=== PATIENT | male | born 1975 | race Caucasian/White ===

== ENCOUNTER 2017-10-18 02:08 | Outpatient (RCR) | payer MEDICAID, SELFPAY ==
[2017-10-18] MEDS: Normal Saline Flush 10 ML SYR IVP (07:50)
[2017-10-19] MEDS: Normal Saline Flush 10 ML SYR IVP (07:07)
[2017-10-20] MEDS: Normal Saline Flush 10 ML SYR IVP (07:17)
== END 2017-11-04 ==
LOC: INF 02:16
PROVIDERS: PCP Family Medicine; Visit Provider Psychiatry & Neurology Neurology
DX: G35 Multiple sclerosis (principal)
CPT/HCPCS: 96365; J2930

== ENCOUNTER 2017-11-24 01:45 | Outpatient (CLI) | payer MEDICAID, SELFPAY ==
[2017-11-24 10:59] LABS: Abs Immature Grans 0.12 k/cumm (0.0-0.09); Absolute Basophil Count 0.03 k/cumm (0.0-0.2); Absolute Eosinophil Count 0.28 k/cumm (0.0-0.7); Absolute Lymphocyte Count 1.85 k/cumm (1.2-3.4); Absolute Monocyte Count 0.73 k/cumm (0.11-0.7); Basophils % 0.5; Eosinophils % 4.2; HCT 45.9 % (40.0-50.0); HGB 15.2 g/dL (13.5-17.5); Immature Grans % 1.8; Mean Corp. HGB Concentration 33.1 g/dL (32.0-36.0); Mean Corpuscular Hemoglobin 29.5 pg (27.0-33.0); Mean Platelet Volume 9.8 fL (8.0-11.0); Neutrophils % 54.5; Platelet Count 345 x1000/uL (130-400); RBC 5.16 m/cumm (4.50-6.00); RBC Distribution Width 13.4 % (11.8-14.1); White Blood Cell Count 6.61 k/cumm (4.4-10.8)
[2017-11-24 11:37] LABS: ALT 58 U/L (12-78); AST 27 U/L (15-37); Albumin 3.6 g/dL (3.4-5.0); Alkaline Phosphatase 91 U/L (46-116); Anion Gap 8.7 mmol/L (3-11); BUN 16 mg/dL (7-18); Bilirubin, Total 0.3 mg/dL (0.2-1.0); CO2 26.3 mmol/L (21.0-32.0); CREATININE 0.87 mg/dL (0.70-1.30); Calcium 8.6 mg/dL (8.5-10.1); Chloride 108 mmol/L (98-107); Glucose 116 mg/dL (70-100); Potassium 4.4 mmol/L (3.5-5.1); Sodium 143 mmol/L (136-145); Total Protein 6.7 g/dL (6.4-8.2)
[2017-11-25 12:51] LABS: IgA 209 mg/dL (85-499); IgG 900 mg/dL (610-1616); IgM 87 mg/dL (35-242)
== END 2017-11-24 02:05 ==
PROVIDERS: PCP Family Medicine; Visit Provider Psychiatry & Neurology Neurology
DX: G35 Multiple sclerosis (principal)
CPT/HCPCS: 36415; 80053; 82784; 85025

== ENCOUNTER 2017-12-29 00:57 | Outpatient (RCR) | payer MEDICAID, SELFPAY ==
[2017-12-29] MEDS: Acetaminophen 325 MG TAB 650 MG PO (07:16)
[2017-12-29] MEDS: diphenhydrAMINE 50 MG/ML VIAL IVP (07:17)
[2017-12-29] MEDS: Normal Saline Flush 10 ML SYR IVP (07:18)
[2017-12-29] MEDS: Dexamethasone 10 MG/ML VIAL IVP (07:18)
[2017-12-29 07:40] VITALS: BP 118/72; PULSE 67; RESP 18; TEMP 36.2; O2SAT 94
[2017-12-29 08:15] VITALS: BP 128/69; PULSE 63; RESP 18; TEMP 36; O2SAT 95
[2017-12-29 08:40] VITALS: BP 129/74; PULSE 69; RESP 18; TEMP 36; O2SAT 97
[2017-12-29 09:10] VITALS: BP 127/55; PULSE 78; RESP 18; TEMP 36.5; O2SAT 97
[2017-12-29 09:28] VITALS: BP 115/66; PULSE 68; RESP 18; TEMP 36.4; O2SAT 98
[2017-12-29 10:10] VITALS: BP 130/74; PULSE 83; RESP 18; TEMP 36.5; O2SAT 98
== END 2018-01-04 23:59 | disposition home or self-care (01) ==
LOC: INF 00:57
PROVIDERS: PCP Family Medicine; Visit Provider Psychiatry & Neurology Neurology
DX: G35 Multiple sclerosis (principal)
CPT/HCPCS: 96365; 96366; J1100; J1200; J9310

== ENCOUNTER 2018-02-20 11:22 | Emergency (ER) | payer MEDICAID, SELFPAY ==
[2018-02-20 11:34] VITALS: BP 147/91; PULSE 68; RESP 16; TEMP 36.5; O2SAT 97
--- NOTE | 2018-02-20 12:24 | W.ED.GENAD ---
Discharge Plan Disposition Patient Disposition: HOME Condition: Good Discharge Details Chief Complaint: Laceration Clinical Impression: Puncture wound Primary Care Provider: Tai Lopez ED Provider: Patrick Tuttle Home Meds and New Rx's Prescriptions: New cephalexin [Keflex] 500 mg capsule 500 mg PO QID Qty: 28 RF: 0 No Action cholecalciferol (vitamin D3) 5,000 UNIT capsule 5,000 unit PO DAILY RF: 0 multivitamin [Daily Multiple] 1 EACH tablet 1 ea PO DAILY RF: 0 Rituxan 10 MG/1 ML concentrate 10 mg IV q 6 months RF: 0 sildenafil (antihypertensive) 20 MG tablet 20 mg PO DAILY Qty: 50 RF: 12 acetaminophen [Acetaminophen Extra Strength] 500 MG tablet 1,000 mg PO Q8H PRN PRNQty: 60 RF: 0 ibuprofen 600 MG tablet 600 mg PO Q8H PRN PRNQty: 30 RF: 1 Discharge Instructions Instructions: Puncture Wound (ED) Referrals: [facility] Emergency Dept. [Outside] - Return if symptoms worsen Discharge Data Discharge Date/Time-TO BE ENTERED AT DEPARTURE: 02/20/18 12:46 Medical Decision Making I used sterile water and betadine to flush under pressure. Pt tolerated well. I did close the wound with three nylon sutures. Advised to have out in 10 days. I prescribed Keflex for seven days for prophylaxis. Advised to keep clean and dry. Return for any complications. HPI General Mode of arrival: ambulatory. Date/Time Provider Initiated Documentation: 02/20/18 11:44. Limitations to Documentation: no limitations. Information obtained by: patient. History of Present Illness 42 year old M presents to the emergency department with the chief complaint of PW, HPI Narrative: 42 y/o right hand dominant male here with right hand PW. 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 Last Tetanus verified by departmental secretary to in 2016. Related Data Home Medications Medication Instructions Recorded Confirmed cholecalciferol (vitamin D3) 5,000 unit PO DAILY 05/25/16 02/20/18 multivitamin [Daily Multiple] 1 ea PO DAILY 05/11/17 02/20/18 acetaminophen [Acetaminophen Extra 1,000 mg PO Q8H PRN PRN #60 tablet 06/23/17 02/20/18 Strength] ibuprofen 600 mg PO Q8H PRN PRN #30 tablet 06/23/17 02/20/18 rituximab [Rituxan] 10 mg IV q 6 months vial 08/15/17 02/20/18 sildenafil (antihypertensive) 20 mg PO DAILY #50 tab-cap 10/17/17 02/20/18 cephalexin [Keflex] 500 mg PO QID #28 cap 02/20/18 Previous Rx's Medication Instructions Recorded acetaminophen [Acetaminophen Extra 1,000 mg PO Q8H PRN PRN #60 tablet 06/23/17 Strength] ibuprofen 600 mg PO Q8H PRN PRN #30 tablet 06/23/17 sildenafil (antihypertensive) 20 mg PO DAILY #50 tab-cap 10/17/17 cephalexin [Keflex] 500 mg PO QID #28 cap 02/20/18 Allergies Allergy/AdvReac Type Severity Reaction Status Date / Time No Known Allergies Allergy Unverified 02/20/18 11:47 General Stated Complaint: Laceration ZAK: 4 Review of Systems Integumentary/Breasts Comments: PW to right palm PFSH Social History Smoking/Tobacco Use Status: Former Tobacco Use Exam Const General: cooperative, healthy appearing, comfortable and no acute distress Orientation: alert, awake and oriented x3 Extrem General: full ROM and normal capillary refill Right upper extremity: hand Details: normal capillary refill, neuromotor exam normal, neurosensory exam normal, tendon exam normal, tenderness Location: of the palm (around PW site) Location: at the thenar eminence, no swelling and puncture wound (to the thinar eminence. Entry wound is approximatly 1 CM in length with adipose tissue exposed. No bleeding or erythema) Hand/finger images: 1. 1 CM PW/laceration Course Vital Signs Temperature 36.5 C 02/20/18 11:34 Pulse 68 02/20/18 11:34 Respiratory Rate 16 02/20/18 11:34 Blood Pressure 147/91 H 02/20/18 11:34 Pulse Oximetry 97 02/20/18 11:34 Temperature 36.5 C 02/20/18 11:34 Temperature Source Skin 02/20/18 11:34 Pulse 68 02/20/18 11:34 Respiratory Rate 16 02/20/18 11:34 Respiratory Effort 02/20/18 11:44 Blood Pressure 147/91 H 02/20/18 11:34 Blood Pressure Position Sitting 02/20/18 11:34 Pulse Oximetry 97 02/20/18 11:34 Oxygen Delivery Method Room Air 02/20/18 11:34 Oxygen Flow Rate 0 02/20/18 11:34 Pain Level 1 02/20/18 11:47 Procedures Laceration Laceration 1: Site: hand Side (If applicable): right Size (cm): 1 Description: linear and contaminated Depth: simple, single layer Local Anesthetic: Lidocaine 1% Amount of anesthesia used (mL): 0.5 Pre-repair: wound explored and irrigated extensively Skin layer closed with: nylon Size (cm): 4-0 Number of sutures: 3 Technique: simple, interrupted
--- NOTE | 2018-02-20 12:28 | ED.GENADUL_ITS ---
Discharge Plan Disposition Patient Disposition: HOME Condition: Good Discharge Details Chief Complaint: Laceration Clinical Impression: Puncture wound Primary Care Provider: Tai Lopez ED Provider: Patrick Tuttle Home Meds and New Rx's Prescriptions: New cephalexin [Keflex] 500 mg capsule 500 mg PO QID Qty: 28 RF: 0 No Action cholecalciferol (vitamin D3) 5,000 UNIT capsule 5,000 unit PO DAILY RF: 0 multivitamin [Daily Multiple] 1 EACH tablet 1 ea PO DAILY RF: 0 Rituxan 10 MG/1 ML concentrate 10 mg IV q 6 months RF: 0 sildenafil (antihypertensive) 20 MG tablet 20 mg PO DAILY Qty: 50 RF: 12 acetaminophen [Acetaminophen Extra Strength] 500 MG tablet 1,000 mg PO Q8H PRN PRNQty: 60 RF: 0 ibuprofen 600 MG tablet 600 mg PO Q8H PRN PRNQty: 30 RF: 1 Discharge Instructions Instructions: Puncture Wound (ED) Referrals: [facility] Emergency Dept. [Outside] - Return if symptoms worsen Discharge Data Discharge Date/Time-TO BE ENTERED AT DEPARTURE: 02/20/18 12:46 Medical Decision Making I used sterile water and betadine to flush under pressure. Pt tolerated well. I did close the wound with three nylon sutures. Advised to have out in 10 days. I prescribed Keflex for seven days for prophylaxis. Advised to keep clean and dry. Return for any complications. HPI General Mode of arrival: ambulatory . Date/Time Provider Initiated Documentation: 02/20/18 11:44 . Limitations to Documentation: no limitations . Information obtained by: patient . History of Present Illness 42 year old M presents to the emergency department with the chief complaint of PW, HPI Narrative: 42 y/o right hand dominant male here with right hand PW. 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 Last Tetanus verified by cupola patcher to in 2016. Related Data Home Medications Medication Instructions Recorded Confirmed cholecalciferol (vitamin D3) 5,000 unit PO DAILY 05/25/16 02/20/18 multivitamin [Daily Multiple] 1 ea PO DAILY 05/11/17 02/20/18 acetaminophen [Acetaminophen Extra 1,000 mg PO Q8H PRN PRN #60 tablet 06/23/17 02/20/18 Strength] ibuprofen 600 mg PO Q8H PRN PRN #30 tablet 06/23/17 02/20/18 rituximab [Rituxan] 10 mg IV q 6 months vial 08/15/17 02/20/18 sildenafil (antihypertensive) 20 mg PO DAILY #50 tab-cap 10/17/17 02/20/18 cephalexin [Keflex] 500 mg PO QID #28 cap 02/20/18 Previous Rx's Medication Instructions Recorded acetaminophen [Acetaminophen Extra 1,000 mg PO Q8H PRN PRN #60 tablet 06/23/17 Strength] ibuprofen 600 mg PO Q8H PRN PRN #30 tablet 06/23/17 sildenafil (antihypertensive) 20 mg PO DAILY #50 tab-cap 10/17/17 cephalexin [Keflex] 500 mg PO QID #28 cap 02/20/18 Allergies Allergy/AdvReac Type Severity Reaction Status Date / Time No Known Allergies Allergy Unverified 02/20/18 11:47 General Stated Complaint: Laceration ZAK: 4 Review of Systems Integumentary/Breasts Comments: PW to right palm PFSH Social History Smoking/Tobacco Use Status: Former Tobacco Use Exam Const General: cooperative, healthy appearing, comfortable and no acute distress Orientation: alert, awake and oriented x3 Extrem General: full ROM and normal capillary refill Right upper extremity: hand Details: normal capillary refill, neuromotor exam normal, neurosensory exam normal, tendon exam normal, tenderness Location: of the palm (around PW site) Location: at the thenar eminence, no swelling and puncture wound (to the thinar eminence. Entry wound is approximatly 1 CM in length with adipose tissue exposed. No bleeding or erythema) Hand/finger images: 1. 1 CM PW/laceration Course Vital Signs Temperature 36.5 C 02/20/18 11:34 Pulse 68 02/20/18 11:34 Respiratory Rate 16 02/20/18 11:34 Blood Pressure 147/91 H 02/20/18 11:34 Pulse Oximetry 97 02/20/18 11:34 Temperature 36.5 C 02/20/18 11:34 Temperature Source Skin 02/20/18 11:34 Pulse 68 02/20/18 11:34 Respiratory Rate 16 02/20/18 11:34 Respiratory Effort 02/20/18 11:44 Blood Pressure 147/91 H 02/20/18 11:34 Blood Pressure Position Sitting 02/20/18 11:34 Pulse Oximetry 97 02/20/18 11:34 Oxygen Delivery Method Room Air 02/20/18 11:34 Oxygen Flow Rate 0 02/20/18 11:34 Pain Level 1 02/20/18 11:47 Procedures Laceration Laceration 1: Site: hand Side (If applicable): right Size (cm): 1 Description: linear and contaminated Depth: simple, single layer Local Anesthetic: Lidocaine 1% Amount of anesthesia used (mL): 0.5 Pre-repair: wound explored and irrigated extensively Skin layer closed with: nylon Size (cm): 4-0 Number of sutures: 3 Technique: simple, interrupted
== END 2018-02-20 12:46 | disposition home or self-care (01) ==
LOC: ER 12:50
PROVIDERS: Emergency Provider Nurse Practitioner Family; PCP Family Medicine
DX: S61.431A Puncture wound without foreign body of right hand, initial encounter (principal); W26.8XXA Contact with other sharp object(s), not elsewhere classified, initial encounter
CPT/HCPCS: 12001

== ENCOUNTER 2018-04-17 01:25 | Outpatient (CLI) | payer MEDICAID, SELFPAY ==
--- NOTE | 2018-04-17 15:40 | DI.US_ITS ---
SYMPTOM/DIAGNOSIS: NEUROGENIC BLADDER, N31.9, ? HYDRONEPHROSIS RENAL ULTRASOUND: Routine examination was performed. The right kidney measures 13.8 cm. long. The left kidney measures 14 cm. long. No renal masses, calculi or obstruction is seen. There is symmetric blood flow to the kidneys. The prevoid urinary bladder volume is 170 cc's. The bladder wall appeared smooth. No intraluminal masses were seen. Both ureteral jets were visualized. The patient was unable to void. Prostatic volume was 13 cc's. IMPRESSION: The patient was unable to void during the examination. Otherwise negative renal ultrasound.
== END 2018-04-17 01:45 ==
PROVIDERS: PCP Family Medicine; Visit Provider Urology
DX: N31.9 Neuromuscular dysfunction of bladder, unspecified (principal)
CPT/HCPCS: 76770

== ENCOUNTER 2018-06-29 02:26 | Outpatient (RCR) | payer MEDICAID, SELFPAY ==
[2018-06-29] MEDS: diphenhydrAMINE 50 MG/ML VIAL IV (07:05)
[2018-06-29] MEDS: Acetaminophen 325 MG TAB 650 MG PO (07:07)
[2018-06-29] MEDS: Dexamethasone 10 MG/ML VIAL IV (07:07)
[2018-06-29 07:10] VITALS: BP 124/80; PULSE 76; RESP 18; TEMP 36.5; O2SAT 94
[2018-06-29 07:36] VITALS: BP 122/72; PULSE 74; RESP 18; TEMP 36.5; O2SAT 94
[2018-06-29 08:14] VITALS: BP 124/75; PULSE 67; RESP 18; TEMP 36.7; O2SAT 98
[2018-06-29 08:53] VITALS: BP 122/79; PULSE 74; RESP 16; TEMP 36.7; O2SAT 94
[2018-06-29 09:35] VITALS: BP 113/60; PULSE 71; RESP 18; TEMP 36.4; O2SAT 94
[2018-06-29 10:46] VITALS: BP 114/72; PULSE 77; RESP 17; TEMP 36.2; O2SAT 94
== END 2018-07-04 23:59 | disposition home or self-care (01) ==
LOC: INF 02:26
PROVIDERS: PCP Family Medicine; Visit Provider Psychiatry & Neurology Neurology
DX: G35 Multiple sclerosis (principal)
CPT/HCPCS: 96365; 96366; J1100; J1200; J9312

== ENCOUNTER 2018-07-14 12:14 | Emergency (ER) | payer MEDICAID, SELFPAY ==
[2018-07-14 12:25] VITALS: BP 148/88; PULSE 84; RESP 16; TEMP 36.7; O2SAT 97
--- NOTE | 2018-07-14 12:43 | DI.RAD_ITS ---
SYMPTOMS/DIAGNOSIS: FINGER VERSUS BAND SAW, CONCERN FOR TUFT FX LEFT HAND: Three views were obtained. The patient reportedly had an injury from a table saw. There is an apparent small chip fracture of the dorsum of the tuft of the distal phalanx of the middle finger. No additional fractures seen.
--- NOTE | 2018-07-14 12:53 | ED.GENADUL_ITS ---
Discharge Plan Disposition Patient Disposition: HOME Condition: Stable Discharge Details Chief Complaint: Laceration Clinical Impression: Nailbed laceration, finger Primary Care Provider: Tai Lopez ED Provider: Cruz Castro Home Meds and New Rx's Prescriptions: New cephalexin 500 mg tablet 500 mg PO QID Qty: 30 RF: 0 Continued cholecalciferol (vitamin D3) 5,000 UNIT capsule 5,000 unit PO DAILY RF: 0 multivitamin [Daily Multiple] 1 EACH tablet 1 ea PO DAILY RF: 0 Rituxan 10 MG/1 ML concentrate 10 mg IV q 6 months RF: 0 sildenafil (antihypertensive) 20 mg tablet 20 mg PO DAILY Qty: 50 RF: 12 imipramine HCl 10 mg tablet 20 mg PO DAILY Qty: 60 RF: 1 acetaminophen [Acetaminophen Extra Strength] 500 MG tablet 1,000 mg PO Q8H PRN PRNQty: 60 RF: 0 ibuprofen 600 MG tablet 600 mg PO Q8H PRN PRNQty: 30 RF: 1 Discharge Instructions Instructions: Finger Laceration (ED) Additional Instructions: Do not use heavy equipment while your finger is numb return to the emergency department immediately if you notice increasing pain redness at the site of your injury. Please take your antibiotic as prescribed Referrals: Tai Lopez [Primary Care Provider] - 3 days Medical Decision Making 42-year-old male laceration including the nailbed to his left ring finger x-ray negative for fracture irrigated copiously wound margins were revised and wound approximated with nine 4-0 nylon sutures nailbed partially stented open with 2 sutures will start patient on Keflex patient to follow-up in 7 to 10 days for wound check and suture removal return sooner for redness pain or other concern tetanus up-to-date. HPI 42-year-old male past medical history of multiple sclerosis on Rituxan presents status post distal left ring finger laceration on a band saw while cutting beef. No other injuries last tetanus shot was less than 5 years ago no change in sensation no other complaints. Pain is sharp nonradiating acute General Date/Time Provider Initiated Documentation: 07/14/18 12:15 . Related Data Home Medications Medication Instructions Recorded Confirmed cholecalciferol (vitamin D3) 5,000 unit PO DAILY 05/25/16 07/14/18 multivitamin [Daily Multiple] 1 ea PO DAILY 05/11/17 07/14/18 acetaminophen [Acetaminophen Extra 1,000 mg PO Q8H PRN PRN #60 tablet 06/23/17 07/14/18 Strength] ibuprofen 600 mg PO Q8H PRN PRN #30 tablet 06/23/17 07/14/18 Rituxan 10 mg IV q 6 months vial 08/15/17 07/14/18 sildenafil (antihypertensive) 20 20 mg PO DAILY #50 tab-cap 04/21/18 07/14/18 mg tablet imipramine 10 mg tablet 20 mg PO DAILY #60 tab 06/14/18 07/14/18 cephalexin 500 mg PO QID #30 tab 07/14/18 Previous Rx's Medication Instructions Recorded acetaminophen [Acetaminophen Extra 1,000 mg PO Q8H PRN PRN #60 tablet 06/23/17 Strength] ibuprofen 600 mg PO Q8H PRN PRN #30 tablet 06/23/17 sildenafil (antihypertensive) 20 20 mg PO DAILY #50 tab-cap 04/21/18 mg tablet imipramine 10 mg tablet 20 mg PO DAILY #60 tab 06/14/18 cephalexin 500 mg PO QID #30 tab 07/14/18 Allergies Allergy/AdvReac Type Severity Reaction Status Date / Time No Known Allergies Allergy Unverified 07/14/18 12:28 General Stated Complaint: Laceration ZAK: 4 Review of Systems Review of Systems No shortness of breath chest pain nausea vomiting diarrhea loss of consciousness weight loss weight gain or constitutional symptoms. All systems reviewed & are unremarkable except as noted in HPI and below PFSH Social History Smoking/Tobacco Use Status: Former Tobacco Use Alcohol Intake: never Drug use: Never Substance use type: does not use Household members: spouse and children Pets and animals: Yes Do you feel safe at home: Yes Do you feel safe in your relationship?: Yes Exam Narrative Exam Narrative: 42-year-old male Course Vital Signs Temperature 36.7 C 07/14/18 12:25 Pulse 84 07/14/18 12:25 Respiratory Rate 16 07/14/18 12:25 Blood Pressure 148/88 H 07/14/18 12:25 Pulse Oximetry 97 07/14/18 12:25 Temperature 36.7 C 07/14/18 12:25 Temperature Source Temporal Artery Scan 07/14/18 12:25 Pulse 84 07/14/18 12:25 Respiratory Rate 16 07/14/18 12:25 Respiratory Effort Non-Labored 05/10/19 12:29 Blood Pressure 148/88 H 07/14/18 12:25 Blood Pressure Position Sitting 07/14/18 12:25 Pulse Oximetry 97 07/14/18 12:25 Oxygen Delivery Method Room Air 07/14/18 12:25 Oxygen Flow Rate 0 07/14/18 12:25 Pain Level 1 07/14/18 12:25 Procedures Laceration Laceration 1: Site: hand (Left index finger distal tip involving the nail and the lateral nail plate nail partially removed nail plate stented with 2 through) Side (If applicable): left Size (cm): 2 Local Anesthetic: Lidocaine 2% (5 cc digital block) Pre-repair: wound explored, irrigated extensively and wound margins revised Skin layer closed with: nylon Size (cm): 4-0 Number of sutures: 9 Technique: simple, interrupted
[2018-07-14] MEDS: Cephalexin 500 MG CAP PO (14:33)
== END 2018-07-14 14:35 | disposition home or self-care (01) ==
PROVIDERS: Emergency Provider Emergency Medicine; PCP Family Medicine
DX: S61.315A Laceration without foreign body of left ring finger with damage to nail, initial encounter (principal); W31.2XXA Contact with powered woodworking and forming machines, initial encounter; G35 Multiple sclerosis
CPT/HCPCS: 11730; 12001; 73130

== ENCOUNTER 2018-07-26 02:11 | Outpatient (RCR) | payer MEDICAID, SELFPAY ==
[2018-07-24] MEDS: Normal Saline Flush 10 ML SYR IVP (07:23)
[2018-07-25] MEDS: Normal Saline Flush 10 ML SYR IVP (07:44)
[2018-07-26] MEDS: Normal Saline Flush 10 ML SYR IVP (07:24)
== END 2018-08-04 23:59 | disposition home or self-care (01) ==
LOC: INF 02:11
PROVIDERS: PCP Family Medicine; Visit Provider Psychiatry & Neurology Neurology
DX: G35 Multiple sclerosis (principal)
CPT/HCPCS: 96365; J2930

== ENCOUNTER 2018-08-08 02:02 | Outpatient (CLI) | payer MEDICAID, SELFPAY ==
[2018-08-11 04:54] LABS: JC Virus DNA, QN <500 copies/mL; Source PLASMA
== END 2018-08-08 02:22 ==
PROVIDERS: PCP Family Medicine; Visit Provider Psychiatry & Neurology Neurology
DX: G35 Multiple sclerosis (principal)
CPT/HCPCS: 36415; 87799

== ENCOUNTER 2018-09-27 08:30 | Outpatient (CLI) | payer MEDICAID, SELFPAY ==
[2018-09-29 07:41] LABS: CD19 <1 %; CD20 <1 %
== END 2018-09-27 08:50 ==
PROVIDERS: PCP Family Medicine; Visit Provider Psychiatry & Neurology Neurology
DX: G35 Multiple sclerosis (principal)
CPT/HCPCS: 36415; 88184; 88185

== ENCOUNTER 2018-10-26 02:18 | Outpatient (CLI) | payer MEDICAID, SELFPAY ==
[2018-10-30 11:16] LABS: CD19 <1 %; CD20 <1 %
== END 2018-10-26 02:38 ==
PROVIDERS: PCP Family Medicine; Visit Provider Psychiatry & Neurology Neurology
DX: G35 Multiple sclerosis (principal)
CPT/HCPCS: 36415; 88184; 88185

== ENCOUNTER 2018-11-30 02:10 | Outpatient (RCR) | payer MEDICAID, SELFPAY ==
[2018-11-30] MEDS: diphenhydrAMINE 50 MG/ML VIAL IV (07:15)
[2018-11-30] MEDS: Dexamethasone 10 MG/ML VIAL IV (07:15)
[2018-11-30] MEDS: Acetaminophen 325 MG TAB 650 MG PO (07:17)
[2018-11-30 07:20] VITALS: BP 118/76; PULSE 66; TEMP 36.4; O2SAT 96
[2018-11-30] MEDS: Normal Saline Flush 10 ML SYR IVP (07:26)
[2018-11-30 07:50] VITALS: BP 114/70; PULSE 71; TEMP 35.9
[2018-11-30 08:43] VITALS: BP 110/70; PULSE 65; RESP 18; TEMP 36.1; O2SAT 95
[2018-11-30 09:16] VITALS: BP 117/72; PULSE 68; RESP 16; TEMP 36.4; O2SAT 96
== END 2018-12-04 23:59 | disposition home or self-care (01) ==
LOC: INF 02:10
PROVIDERS: PCP Family Medicine; Visit Provider Psychiatry & Neurology Neurology
DX: G35 Multiple sclerosis (principal)
CPT/HCPCS: 96365; 96366; J1100; J1200; J9312

== ENCOUNTER 2019-04-24 02:19 | Outpatient (CLI) | payer MEDICAID, SELFPAY ==
[2019-04-24 07:36] LABS: Abs Immature Grans 0.05 k/cumm (0.0-0.09); Absolute Basophil Count 0.03 k/cumm (0.0-0.2); Absolute Eosinophil Count 0.36 k/cumm (0.0-0.7); Absolute Lymphocyte Count 1.54 k/cumm (1.2-3.4); Absolute Monocyte Count 0.79 k/cumm (0.11-0.7); Absolute Neutrophil Count 4.79 k/cumm (1.2-6.7); Basophils % 0.4; Eosinophils % 4.8; HCT 46.3 % (40.0-50.0); HGB 15.9 g/dL (13.5-17.5); Immature Grans % 0.7 %; Lymphocytes % 20.4; Mean Corp. HGB Concentration 34.3 g/dL (32.0-36.0); Mean Corpuscular Hemoglobin 30.2 pg (27.0-33.0); Mean Platelet Volume 9.4 fL (8.0-11.0); Monocytes % 10.4; Neutrophils % 63.3; Platelet Count 337 x1000/uL (130-400); RBC 5.26 m/cumm (4.50-6.00); White Blood Cell Count 7.56 k/cumm (4.4-10.8)
[2019-04-24 08:42] LABS: ALT 63 U/L (16-63); AST 31 U/L (15-37); Albumin 3.9 g/dL (3.4-5.0); Alkaline Phosphatase 67 U/L (46-116); Anion Gap 9.5 mmol/L (3-11); BUN 21 mg/dL (7-18); Bilirubin, Total 0.8 mg/dL (0.2-1.0); CO2 27.5 mmol/L (21.0-32.0); CREATININE 1.03 mg/dL (0.70-1.30); Calcium 8.7 mg/dL (8.5-10.1); Chloride 104 mmol/L (98-107); Glucose 100 mg/dL (74-106); Potassium 4.3 mmol/L (3.5-5.1); Sodium 141 mmol/L (136-145)
[2019-04-25 11:00] LABS: IgA 222 mg/dL (85-499); IgG 915 mg/dL (610-1,616); IgM 49 mg/dL (35-242)
[2019-04-25 16:39] LABS: CD19 <1 %; CD20 <1 %
[2019-04-26 05:02] LABS: Vitamin D 25 Total 45.7 ng/ml (30-100)
== END 2019-04-24 02:39 ==
PROVIDERS: PCP Family Medicine; Visit Provider Psychiatry & Neurology Neurology
DX: G35 Multiple sclerosis (principal)
CPT/HCPCS: 36415; 80053; 82306; 82784; 88184; 88185; 85025

== ENCOUNTER 2019-05-03 03:11 | Outpatient (RCR) | payer MEDICAID, SELFPAY ==
[2019-05-03] VITALS (8 sets, daily range): BP systolic 102–149; BP diastolic 63–82; PULSE 63–91; RESP 18–19; TEMP 35.9–36.7; O2SAT 94–98
[2019-05-03] MEDS: Dexamethasone 10 MG/ML VIAL IV (07:30)
[2019-05-03] MEDS: Acetaminophen 325 MG TAB 650 MG PO (07:30)
[2019-05-03] MEDS: diphenhydrAMINE 50 MG/ML VIAL IV (07:35)
[2019-05-03] MEDS: Normal Saline Flush 10 ML SYR IVP (07:42)
== END 2019-05-05 23:59 | disposition home or self-care (01) ==
LOC: INF 03:11
PROVIDERS: PCP Family Medicine; Visit Provider Psychiatry & Neurology Neurology
DX: G35 Multiple sclerosis (principal)
CPT/HCPCS: 96365; 96366; 96374; J1100; J1200; J9312

== ENCOUNTER 2019-05-18 04:35 | Outpatient (RCR) | payer MEDICAID, SELFPAY ==
[2019-05-16] MEDS: Normal Saline Flush 10 ML SYR IVP ×2 (13:59→14:32)
[2019-05-17] MEDS: Normal Saline Flush 10 ML SYR IVP (07:48)
[2019-05-18] MEDS: Normal Saline Flush 10 ML SYR IVP (07:20)
== END 2019-06-05 23:59 | disposition home or self-care (01) ==
LOC: INF 04:35
PROVIDERS: PCP Family Medicine; Visit Provider Psychiatry & Neurology Neurology
DX: G35 Multiple sclerosis (principal)
CPT/HCPCS: 96365; J2930

== ENCOUNTER 2019-09-26 03:02 | Outpatient (RCR) | payer MEDICAID, SELFPAY ==
[2019-09-26] VITALS (8 sets, daily range): BP systolic 102–113; BP diastolic 64–70; PULSE 55–77; RESP 18–19; TEMP 36–36.5; O2SAT 97–100
[2019-09-26] MEDS: diphenhydrAMINE 50 MG/ML VIAL IV (08:14)
[2019-09-26] MEDS: Acetaminophen 325 MG TAB 650 MG PO (08:14)
[2019-09-26] MEDS: Dexamethasone 10 MG/ML VIAL IV (08:20)
[2019-09-26] MEDS: Normal Saline Flush 10 ML SYR IVP (08:44)
[2019-09-27 13:11] LABS: IgA 192 mg/dL (85-499); IgG 676 mg/dL (610-1,616); IgM 42 mg/dL (35-242)
[2019-09-27 15:58] LABS: CD19 <1 %; CD20 <1 %
== END 2019-10-05 23:59 | disposition home or self-care (01) ==
LOC: INF 03:02
PROVIDERS: PCP Family Medicine; Visit Provider Psychiatry & Neurology Neurology
DX: G35 Multiple sclerosis (principal)
CPT/HCPCS: 36415; 82784; 88184; 88185; 96365; 96366; 96374; 96375; J1100; J1200; J9312

== ENCOUNTER 2019-12-03 10:25 | Emergency (ER) | payer MEDICAID, SELFPAY ==
[2019-12-03 10:34] VITALS: BP 150/72; PULSE 73; RESP 16; TEMP 36.4; O2SAT 96
--- NOTE | 2019-12-03 10:56 | W.ED.GENAD ---
Discharge Plan Disposition Patient Disposition: HOME Condition: Improving Discharge Details Clinical Impression: Laceration of thumb Primary Care Provider: Tai Lopez ED Provider: Juan José Leyva Home Meds and New Rx's Prescriptions: Continued pseudoephedrine HCl [Sudogest] 60 mg tablet 60 mg PO Q6H PRN (Reason: nasal congestion) Qty: 60 RF: 2 cholecalciferol (vitamin D3) 5,000 UNIT capsule 5,000 unit PO DAILY RF: 0 multivitamin [Daily Multiple] 1 EACH tablet 1 ea PO DAILY RF: 0 Rituxan 10 MG/1 ML concentrate 10 mg IV q 6 months RF: 0 acetaminophen [Acetaminophen Extra Strength] 500 MG tablet 1,000 mg PO Q8H PRN PRNQty: 60 RF: 0 ibuprofen 600 MG tablet 600 mg PO Q8H PRN PRNQty: 30 RF: 1 No Action tadalafil [Cialis] 5 mg tablet 5 mg PO DAILY PRN (Reason: lower urinary tract symptoms) Qty: 30 RF: 12 Discharge Instructions Instructions: Laceration (ED) Additional Instructions: Remove for suture removal in 7 to 10 days time. Return sooner if develop a fever, foul-smelling discharge from wound, or any other concerns. Leave current dressing in place for 48 hours, then may remove, wash gently with soap and water and pat dry, then replace bandage. Resume normal routine and activities. 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 He cut his left thumb on the volar aspect with a sharp saw. Dressing was applied at the scene. Patient's tetanus is up-to-date. He does not have motor or vascular compromise and sensation is normal. Wound was anesthetized, irrigated, examined in a bloodless field without evidence of foreign body, repaired with interrupted sutures with good wound edge alignment. I personally dressed the wound and discussed home care precautions with the patient. He is stable and improved and will return for suture removal. HPI General Mode of arrival: ambulatory. Date/Time Provider Initiated Documentation: 12/03/19 10:29. Limitations to Documentation: no limitations. Information obtained by: patient. History of Present Illness 44 year old M presents to the emergency department with the chief complaint of Left thumb laceration, described as moderate, Quality is described as dull and constant, and is localized to the left and upper extremity. Patient reports no radiation. Patient started experiencing this minute(s) and it has been constant. No relieving factors improve symptom(s), No exacerbating factors reported . Patient did receive the following treatments prior to arrival, none and other (Tetanus up-to-date 2015) Related Data Home Medications Medication Instructions Recorded Confirmed cholecalciferol (vitamin D3) 5,000 unit PO DAILY 05/25/16 10/09/19 multivitamin [Daily Multiple] 1 ea PO DAILY 05/11/17 10/09/19 acetaminophen [Acetaminophen Extra 1,000 mg PO Q8H PRN PRN #60 tab 06/23/17 10/09/19 Strength] ibuprofen 600 mg PO Q8H PRN PRN #30 tab 06/23/17 10/09/19 Rituxan 10 mg IV q 6 months vial 08/15/17 10/09/19 pseudoephedrine HCl 60 mg tablet 60 mg PO Q6H PRN #60 tab 04/02/19 10/09/19 tadalafil 5 mg tablet 5 mg PO DAILY PRN #30 tab 10/09/19 10/09/19 Previous Rx's Medication Instructions Recorded acetaminophen [Acetaminophen Extra 1,000 mg PO Q8H PRN PRN #60 tab 06/23/17 Strength] ibuprofen 600 mg PO Q8H PRN PRN #30 tab 06/23/17 pseudoephedrine HCl 60 mg tablet 60 mg PO Q6H PRN #60 tab 04/02/19 tadalafil 5 mg tablet 5 mg PO DAILY PRN #30 tab 10/09/19 Allergies Allergy/AdvReac Type Severity Reaction Status Date / Time No Known Allergies Allergy Verified 12/03/19 10:45 General Stated Complaint: Laceration ZAK: 4 Review of Systems Narrative: No numbness or motor weakness. 4 systems reviewed and otherwise negative [facility] Medical History Erectile dysfunction secondary to MS Lower urinary tract symptoms (LUTS) Multiple sclerosis, relapsing-remitting (05/25/16) Neurogenic bladder secondary to MS Surgical History H/O total cystectomy lower buttocks S/P carpal tunnel release Right endoscopic 06/2017 S/P vasectomy x2 Family History Paternal Grandfather Stroke Paternal Cousin Multiple sclerosis Social History Smoking/Tobacco Use Status: Former Tobacco Use Alcohol Intake: never Drug use: Never Substance use type: does not use Household members: spouse and children Housing: house Number of Children: 5 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 Pleasant, well groomed, interactive. HEAD: Normocephalic, atraumatic EXT: Full ROM, there is a curvilinear laceration on the volar aspect of the patient's left thumb. Measures approximately 3 cm. Motor function and apposition of the thumb are normal as is distal sensation. Neuro: Grossly normal neurologic exam, conversant, interactive. Psych: Speech fluent, thoughts congruent, affect normal Course Vital Signs Vital signs: Vital Signs Temperature 36.4 C L 12/03/19 10:34 Pulse 73 12/03/19 10:34 Respiratory Rate 16 12/03/19 10:34 Blood Pressure 150/72 H 12/03/19 10:34 Pulse Oximetry 96 12/03/19 10:34 Temperature 36.4 C L 12/03/19 10:34 Temperature Source Skin 12/03/19 10:34 Pulse 73 12/03/19 10:34 Respiratory Rate 16 12/03/19 10:34 Respiratory Effort Non-Labored 12/03/19 10:34 Blood Pressure 150/72 H 12/03/19 10:34 Blood Pressure Position Sitting 12/03/19 10:34 Pulse Oximetry 96 12/03/19 10:34 Oxygen Delivery Method Room Air 12/03/19 10:34 Oxygen Flow Rate 0 12/03/19 10:34 Pain Level 2 12/03/19 10:41 Procedures Laceration Laceration 1: Site: hand Side (If applicable): left Depth: simple, single layer Local Anesthetic: Lidocaine 1% Amount of anesthesia used (mL): 1.5 Pre-repair: wound explored and irrigated extensively Skin layer closed with: nylon Size (cm): 4-0 Number of sutures: 6 Technique: simple, interrupted
== END 2019-12-03 11:14 | disposition home or self-care (01) ==
PROVIDERS: Emergency Provider Emergency Medicine; PCP Family Medicine
DX: S61.012A Laceration without foreign body of left thumb without damage to nail, initial encounter (principal); W27.0XXA Contact with workbench tool, initial encounter; Y99.0 Civilian activity done for income or pay; G35 Multiple sclerosis
CPT/HCPCS: 12001

== ENCOUNTER 2020-02-27 08:00 | Outpatient (RCR) | payer MEDICAID, SELFPAY ==
[2020-02-27 08:24] LABS: Abs Immature Grans 0.04 10^3/uL (0.0-0.06); Absolute Basophil Count 0.05 10^3/uL (0.0-0.2); Absolute Eosinophil Count 0.34 10^3/uL (0.0-0.7); Absolute Lymphocyte Count 1.64 10^3/uL (1.2-3.4); Absolute Monocyte Count 0.64 10^3/uL (0.1-0.8); Absolute Neutrophil Count 3.86 10^3/uL (1.2-6.7); Basophils % 0.8; Eosinophils % 5.2; HCT 44.9 % (40.0-50.0); HGB 15.3 g/dL (13.5-17.5); Immature Grans % 0.6; MCH 29.5 pg (27.0-33.0); MCHC 34.1 % (32.0-36.0); MCV 86.7 fL (80-95); MPV 9.4 fL (8.0-11.0); Monocytes % 9.7; Neutrophils % 58.7; Nucleated RBC 0 %; Platelet Count 322 10^3/uL (130-400); RBC 5.18 10^6/uL (4.36-5.78); RDW 12.4 % (11.8-14.1); RDW-SD 39.4 fL; WBC 6.57 10^3/uL (4.4-10.8)
[2020-02-27] MEDS: Dexamethasone 10 MG/ML VIAL IVP (08:25)
[2020-02-27] MEDS: diphenhydrAMINE 50 MG/ML VIAL IVP (08:25)
[2020-02-27] MEDS: Normal Saline Flush 10 ML SYR IVP (08:25)
[2020-02-27 08:35] VITALS: BP 117/74; PULSE 62; RESP 18; TEMP 36.6; O2SAT 98
[2020-02-27 08:45] LABS: ALT 53 U/L (16-63); AST 29 U/L (15-37); Albumin 3.9 g/dL (3.4-5.0); Alkaline Phosphatase 62 U/L (46-116); BUN 21 mg/dL (7-18); Bilirubin, Total 0.7 mg/dL (0.2-1.0); CREATININE 0.75 mg/dL (0.70-1.30); Calcium 8.6 mg/dL (8.5-10.1); Chloride 102 mmol/L (98-107); Glucose 106 mg/dL (74-106); Potassium 4.2 mmol/L (3.5-5.1); Sodium 137 mmol/L (136-145)
[2020-02-27 09:00] VITALS: BP 115/73; PULSE 56; RESP 16; TEMP 37.1; O2SAT 98
[2020-02-27 09:30] VITALS: BP 114/70; PULSE 60; RESP 18; TEMP 36.1; O2SAT 97
[2020-02-27 10:00] VITALS: BP 115/71; PULSE 56; RESP 16; TEMP 36.9; O2SAT 98
[2020-02-27 11:45] VITALS: BP 129/76; PULSE 79; RESP 20; TEMP 36.3; O2SAT 97
[2020-02-28 10:02] LABS: IgA 184 mg/dL (85-499); IgG 692 mg/dL (610-1,616); IgM 45 mg/dL (35-242)
== END 2020-03-06 23:59 | disposition home or self-care (01) ==
LOC: INF 08:00
PROVIDERS: PCP Family Medicine; Visit Provider Psychiatry & Neurology Neurology
DX: G35 Multiple sclerosis (principal)
CPT/HCPCS: 36415; 80053; 82784; 96365; 96366; 96375; 85025; J1100; J1200; J9312

== ENCOUNTER 2020-07-07 01:53 | Outpatient (CLI) | payer MEDICAID, SELFPAY ==
[2020-07-07 10:12] LABS: Source Nasal/Nares
[2020-07-07 12:50] LABS: COVID-19 PCR Negative (Negative)
== END 2020-07-07 01:54 | disposition home or self-care (01) ==
LOC: LBO 01:54
PROVIDERS: PCP Family Medicine; Visit Provider Student in an Organized Health Care Education/Training Program
DX: Z20.822 Contact with and (suspected) exposure to COVID-19 (principal)
CPT/HCPCS: 87635

== ENCOUNTER 2020-07-08 06:12 | Day surgery (SDC) | payer MEDICAID, SELFPAY ==
[2020-07-08 06:15] VITALS: BP 124/74; PULSE 78; RESP 18; TEMP 36.6; O2SAT 97
[2020-07-08] MEDS: Lactated Ringers 1,000 ML 80 ML IV (06:44)
--- NOTE | 2020-07-08 06:54 | W.ANESPRE ---
General Info Date of Service Date Performed: 07/08/20 Height: 5 ft 11 in Weight: 137.6 kg Body Mass Index (BMI): 42.3 Surgical Procedure: Operation Date: 07/08/20 07:40 Proposed Procedures Side Surgeon p Wrist ECTR Left Moses Leon MD Operation Date: 07/08/20 13:25 Proposed Procedures Side Surgeon p Wrist ECTR Left Moses Leon MD Meds Allergies and Home Medications Allergies Allergy/AdvReac Type Severity Reaction Status Date / Time shrimp Allergy hands swell Verified 07/08/20 06:24 Home Medication Medication Instructions Recorded cholecalciferol (vitamin D3) 10,000 unit PO DAILY 05/25/16 multivitamin [Daily Multiple] 1 ea PO DAILY 05/11/17 acetaminophen [Acetaminophen Extra 1,000 mg PO Q8H PRN PRN #60 tab 06/23/17 Strength] ibuprofen 600 mg PO Q8H PRN PRN #30 tab 06/23/17 Rituxan 10 mg IV q 6 months vial 08/15/17 pseudoephedrine HCl 60 mg tablet 60 mg PO Q6H PRN #60 tab 04/02/19 dalfampridine 10 mg 10 mg PO Q12H 04/07/20 tablet,extended release,12 hr Current Visit Medications: Current Medications Generic Name Dose Route Start Last Admin Trade Name Freq PRN Reason Stop Dose Admin Ringer's Solution 1,000 mls @ 80 mls/hr 07/08/20 06:00 07/08/20 06:44 IV 08/06/20 23:59 80 mls/hr INFUSION MARY Administration Cefazolin Sodium 3,000 mg/ 100 mls @ 200 mls/hr 07/08/20 06:00 Sodium Chloride IVPB 07/08/20 23:59 PREOP MARY IV Miscellaneous Supplies 1 each 07/08/20 06:00 Iv Access IV 08/06/20 23:59 DIRECTED MARY Sodium Chloride 0 ml 07/08/20 06:00 Normal Saline Flush 10 Ml Syr IV 08/06/20 23:59 PRN PRN Sodium Chloride 0 ml 07/08/20 06:00 Normal Saline 10 Ml Vial IJ 08/06/20 23:59 DIRECTED PRN Sterile Water 0 ml 07/08/20 06:00 Water,Injection,Sterile 10 Ml Vial IJ 08/06/20 23:59 DIRECTED PRN PFSH Active Problems Active Problems: Problem Status Onset Code Lower urinary tract symptoms (LUTS) R39.9 Erectile dysfunction N52.9 Neurogenic bladder N31.9 Multiple sclerosis, relapsing-remitting 05/25/16 G35 Carpal tunnel syndrome of left wrist G56.02 Tick bite W57.XXXA Carpal tunnel syndrome of right wrist 05/12/17 G56.01 Right optic neuritis 05/25/16 H46.9 Medical History Medical History Erectile dysfunction secondary to MS Lower urinary tract symptoms (LUTS) Multiple sclerosis, relapsing-remitting (05/25/16) Neurogenic bladder secondary to MS Surgical History Surgical History H/O total cystectomy lower buttocks S/P carpal tunnel release Right endoscopic 06/2017 S/P vasectomy x2 Tobacco Smoking/Tobacco Use Status: Former Tobacco Use Alcohol Alcohol Intake: never Substance Use Substance use: Never Substance use type: does not use Vital Signs and Lab Results Vital Signs Most Recent Vital Signs in EMR: Most Recent Vital Signs Temp Pulse Resp BP Pulse Ox 36.6 C 78 18 124/74 97 07/08/20 06:15 07/08/20 06:15 07/08/20 06:15 07/08/20 06:15 07/08/20 06:15 Lab Results Blood Type / Crossmatch: No Data to Display Complete Blood Count: White Blood Count 6.57 10^3/uL (4.4-10.8) 02/27/20 08:09 02/27/20 Red Blood Count 5.18 10^6/uL (4.36-5.78) 02/27/20 08:09 02/27/20 Hemoglobin 15.3 g/dL (13.5-17.5) 02/27/20 08:09 02/27/20 Hematocrit 44.9 % (40.0-50.0) 02/27/20 08:09 02/27/20 Platelet Count 322 10^3/uL (130-400) 02/27/20 08:09 02/27/20 Complete Metabolic Panel: Sodium Level 137 mmol/L (136-145) 02/27/20 08:09 02/27/20 Potassium Level 4.2 mmol/L (3.5-5.1) 02/27/20 08:09 02/27/20 Chloride Level 102 mmol/L (98-107) 02/27/20 08:09 02/27/20 Carbon Dioxide Level 26.0 mmol/L (21.0-32.0) 02/27/20 08:09 02/27/20 Blood Urea Nitrogen 21 mg/dL (7-18) H 02/27/20 08:09 02/27/20 Creatinine 0.75 mg/dL (0.70-1.30) 02/27/20 08:09 02/27/20 Calcium Level 8.6 mg/dL (8.5-10.1) 02/27/20 08:09 02/27/20 Albumin 3.9 g/dL (3.4-5.0) 02/27/20 08:09 02/27/20 Glucose Level 106 mg/dL (74-106) 02/27/20 08:09 02/27/20 Liver Function Panel: Alanine Aminotransferase (ALT/SGPT) 53 U/L (16-63) 02/27/20 08:09 02/27/20 Aspartate Amino Transf (AST/SGOT) 29 U/L (15-37) 02/27/20 08:09 02/27/20 Coagulation Panel: No Data to Display Cardiac Panel: No Data to Display Arterial Blood Gas: No Data to Display Venous Blood Gas: No Data to Display Pancreas Panel: No Data to Display Thyroid Panel: No Data to Display Infectious Disease: Coronavirus (COVID-19)(PCR) Negative (Negative) 07/07/20 08:58 07/07/20 Coronavirus 2019 Source Nasal/nares 07/07/20 08:58 07/07/20 Group A Streptococcus Rapid Negative 09/12/17 08:39 09/12/17 Hepatitis B Surface Antigen Negative (NEGAT) 06/01/17 08:49 06/01/17 Hepatitis C Antibody Negative (NEGAT) 06/01/17 08:49 06/01/17 Blood Cultures: No Data to Display Toxicology Panel: No Data to Display Anesthesia Assessment and Plan Anesthesia History Personal History: No History of Anesthesia Complications Family History: No Family History of Anesthesia Complications Exercise Tolerance Exercise Tolerance: Metabolic Equivalents>4 Pertinent Negatives Pertinent Negatives: No Symptoms of GERD, No Major Cardiovascular Symptoms or Complaints, No Major Pulmonary Symptoms or Complaints and No History of CVA/TIA Cardiac & Pulmonary Exam Cardiac Exam: Normal S1/S2 Heart Sounds Pulmonary Exam: Clear Bilateral Breath Sounds Airway Exam Known Difficult Airway: No Mallampati Class: 3 Mouth Opening: Normal (> 3cm) Thyromental Distance: Greater than 3 cm Neck Range of Motion: Full ROM Neck Circumference: Normal Teeth Condition: Normal Dentition ASA Classification ASA Score: ASA 3 ASA Emergency: No NPO Status NPO Status: NPO Clears >2 hours, Solids >8 hours Anesthesia Plan Anesthesia Technique: General Anesthesia Airway Planned: Natural Airway Monitors Used: Standard Monitors
[2020-07-08 07:06] VITALS: BMI 42.3
[2020-07-08] MEDS: ceFAZolin 3,000 MG in Normal Saline 100 ML 200 MG IVPB (07:23)
--- NOTE | 2020-07-08 07:25 | W.PM.DSUDISC ---
Discharge Plan Disposition Patient Disposition: HOME Condition: Good Discharge Details Reason For Visit: Left Carpal Tunnel Syndrome Attending Provider: Moses Leon Primary Care Provider: Tai Lopez Home Meds and New Rx's Prescriptions: Continued pseudoephedrine HCl [Sudogest] 60 mg tablet 60 mg PO Q6H PRN (Reason: nasal congestion) Qty: 60 RF: 2 dalfampridine 10 mg tablet extended release 12 hr 10 mg PO Q12H RF: 0 cholecalciferol (vitamin D3) 5,000 UNIT capsule 10,000 unit PO DAILY RF: 0 multivitamin [Daily Multiple] 1 EACH tablet 1 ea PO DAILY RF: 0 Rituxan 10 MG/1 ML concentrate 10 mg IV q 6 months RF: 0 acetaminophen [Acetaminophen Extra Strength] 500 MG tablet 1,000 mg PO Q8H PRN PRNQty: 60 RF: 0 ibuprofen 600 MG tablet 600 mg PO Q8H PRN PRNQty: 30 RF: 1 Discharge Instructions Stand Alone Forms: Edward Martinez Tunnel Release Referrals: Moses Leon MD [ [facility] STAFF PHYSICIAN] - Activity:: Elevate Remove Dressings/Wound Care:: 48 hours Shower/Bathe:: 48 hours Diet:: As Tolerated Discharge Orders Discharge Orders: Discharge Order (Routine); Ordered 07/08/20 Ordered By: Moses Leon DS: Diagnosis Discharge Diagnosis (1) Carpal tunnel syndrome of left wrist: Status: Acute
[2020-07-08] MEDS: Sodium Bicarbonate 50 MEQ/50 ML VIAL (07:30)
[2020-07-08 07:45] VITALS: BP 106/55; PULSE 73; RESP 18; TEMP 36.5; O2SAT 94
--- NOTE | 2020-07-08 07:48 | W.ANESPOSTOP ---
Postoperative Evaluation Date, Time and Location Date Performed: 07/08/20 Time Performed: 07:49 Patient Location: Day Surgery Unit Vital Signs Most Recent Imported Vital Signs: Most Recent Vital Signs Temp Pulse Resp BP Pulse Ox 36.6 C 78 18 124/74 97 07/08/20 06:15 07/08/20 06:15 07/08/20 06:15 07/08/20 06:15 07/08/20 06:15 Most Recent Manually Entered Vital Signs: Adult Blood Pressure: 106/55 Heart Rate: 73 Respirations: 16 Oxygen Saturation (%): 94 Temperature (C): 36.5 C Pain Score (0-10 Scale): 0 Assessment Mental Status: Awake (Alert & Oriented to Patient Baseline) Airway and Respiratory Function: Patent airway with normal (patient baseline) respiratory exam Cardiovascular Function: Hemodynamically Stable Hydration Status: Adequately Hydrated Nausea & Vomiting: No Nausea or Vomiting Pain: Pt. Denies Any Pain Peripheral Nerve Block: Patient did not receive a nerve block
[2020-07-08 07:53] VITALS: BP 106/55; PULSE 73; RESP 16; TEMPC 36.5; O2SAT 94
[2020-07-08 08:10] VITALS: BP 134/63; PULSE 70; RESP 18; TEMP 36.2; O2SAT 98
--- NOTE | 2020-07-08 10:24 | W.PM.OP ---
Date of service: 07/08/20 Time of Service: 07:47 Operative Note Operative Note DATE OF PROCEDURE: 07/08/20 PRE-OP DIAGNOSIS: Left Carpal Tunnel Syndrome POST-OP DIAGNOSIS: same PROCEDURE: Left Endoscopic Carpal Tunnel Release SURGEON: Moses Leon ANESTHESIA TYPE: General:No Airway Refer to Anesthesia Record ESTIMATED BLOOD LOSS: 0 PATHOLOGY: none sent TOURNIQUET TIME: 4 COMPLICATIONS: None Patient was transported to: same day Patient's condition: stable Indications: I have seen Wilmer in clinic for symptoms of carpal tunnel syndrome. The numbness, tingling, and pain limited function. Clinical exam findings with nerve conduction tests confirmed the diagnosis of carpal tunnel syndrome. Nonoperative measures such as bracing, time, activity modifications had been tried but disability and pain persisted. I discussed carpal tunnel release with the patient. I reviewed the risks of the procedure to include, but not limited to, bleeding, infection, pain, stiffness, incomplete release, damage to nerves or vessels, persistent numbness, recurrence. Despite these risks, the patient elected to proceed. Findings: There was tightened carpal tunnel. This was dilated and released successfully with the endoscopic with increased space within the tunnel. The antebrachial fascia was released proximally freeing the median nerve at the wrist. Procedure Description: Wilmer was greeted in the preoperative holding area where the correct side was identified and marked. The consent was reviewed with the patient and signed. The history and physical was updated. All questions were answered. He was taken back to the operating room. The patient was placed into the supine position on the operating room table with the left arm on an arm board. A nonsterile tourniquet was placed high onto the arm. All bony prominences were well padded. Prophylactic antibiotics in the form of Cefazolin were administered. The left arm was then prepped with Chloraprep and draped in a standard fashion with stockinette and extremity drape. A timeout to confirm correct identity, side and site, procedure, allergies, anesthesia, and medical concerns was performed. The surgical site was marked in the volar wrist creases in line with the radial border of the fourth ray. This area was anesthetized with approximately 6cc of 1% Lidocaine. The limb was then exsanguinated with an Esmarch. The skin was incised with a 15 blade, approximately 1cm. The skin only was cut and the deeper tissue was dissected bluntly with a tenotomy scissor, avoiding passing nerve and venous structures. The fascia was penetrated and opened bluntly. A two-prong skin hook was placed under this proximal fascial edge. A series of hamate finders were used to identify and dilate the carpal tunnel. Synovial elevator was used to free synovial attachments to the underside of the transverse carpal ligament. My thumb was kept in the palm to dana the distal extent of the carpal tunnel and correctly position the hand. The [employer] endoscope was inserted without difficulty and without resistance. Excellent visualization showed horizontally running fibers of the transverse carpal ligament (TCL). The distal extent of the TCL was visualized and the end of the scope palpated with the thumb. The blade was elevated and withdrawn from distal to proximal. The TCL was split into two flaps. The endoscope was reinserted to confirm complete release and any remnant ligament was incised. The scope was withdrawn and the proximal aspect of the carpal tunnel was grossly inspected and appeared release with the median nerve visible. The antebrachial fascia at the level of the wrist was then freed from the overlying skin and then the underlying median nerve with blunt dissection. This was transected longitudinally for about 3cm proximal to the wrist incision. The wound was then irrigated with easy flow of irrigant distally and proximally. The incision was closed with a single 4-0 Nylon suture. The wound was dressed with Xeroform, Gauze, Kerlix and Rajinder. The tourniquet was deflated with the initial dressing and held with some pressure. Blood flow returned easily to all digits with capillary refill less than 2 seconds. The patient tolerated the procedure well and was returned to the Same Day Surgery area in a stable condition suffering no known complication.
== END 2020-07-08 08:35 | disposition home or self-care (01) ==
PROVIDERS: PCP Family Medicine; Visit Provider Student in an Organized Health Care Education/Training Program
PROC: 01N54ZZ Release Median Nerve, Percutaneous Endoscopic Approach (ICD-10-PCS; CPT 29848; principal; 2020-07-08 07:30)
DX: G56.02 Carpal tunnel syndrome, left upper limb (principal); G35 Multiple sclerosis
CPT/HCPCS: 29848; J0690; J2001; J2704

== ENCOUNTER 2020-07-28 07:45 | Outpatient (RCR) | payer MEDICAID, SELFPAY ==
[2020-07-28] VITALS (7 sets, daily range): BP systolic 110–120; BP diastolic 69–74; PULSE 60–68; RESP 16–18; TEMP 36.1–37; O2SAT 96–98
[2020-07-28] MEDS: Dexamethasone 10 MG/ML VIAL IVP (07:38)
[2020-07-28] MEDS: Normal Saline Flush 10 ML SYR IVP (07:39)
[2020-07-28] MEDS: diphenhydrAMINE 50 MG/ML VIAL IVP (07:39)
[2020-07-28] MEDS: Acetaminophen 325 MG TAB 650 MG PO (07:39)
[2020-07-28] MEDS: riTUXimab-PVVR 500 MG in Normal Saline 200 ML 62.5 MG IVPB (08:01)
[2020-07-28 08:07] LABS: Abs Immature Grans 0.06 10^3/uL (0.0-0.06); Absolute Basophil Count 0.05 10^3/uL (0.0-0.2); Absolute Eosinophil Count 0.29 10^3/uL (0.0-0.7); Absolute Lymphocyte Count 2.09 10^3/uL (1.2-3.4); Absolute Monocyte Count 0.75 10^3/uL (0.1-0.8); Absolute Neutrophil Count 4.37 10^3/uL (1.2-6.7); Basophils % 0.7; Eosinophils % 3.8; HGB 15.2 g/dL (13.5-17.5); Immature Grans % 0.8; Lymphocytes % 27.5; MCH 29.8 pg (27.0-33.0); MCHC 33.8 % (32.0-36.0); MCV 88.2 fL (80-95); MPV 9.6 fL (8.0-11.0); Monocytes % 9.9; Neutrophils % 57.3; Nucleated RBC 0 %; Platelet Count 347 10^3/uL (130-400); RDW 12.2 % (11.8-14.1); RDW-SD 40.2 fL; WBC 7.61 10^3/uL (4.4-10.8)
[2020-07-28 08:24] LABS: ALT 63 U/L (16-63); AST 46 U/L (15-37); Albumin 3.7 g/dL (3.4-5.0); Alkaline Phosphatase 67 U/L (46-116); Anion Gap 6.9 mmol/L (3-11); BUN 17 mg/dL (7-18); Bilirubin, Total 0.7 mg/dL (0.2-1.0); CO2 28.1 mmol/L (21.0-32.0); CREATININE 0.9 mg/dL (0.70-1.30); Calcium 8.6 mg/dL (8.5-10.1); Chloride 107 mmol/L (98-107); Glucose 105 mg/dL (74-106); Potassium 4.5 mmol/L (3.5-5.1); Sodium 142 mmol/L (136-145); Total Protein 7.1 g/dL (6.4-8.2)
[2020-07-29 10:04] LABS: IgA 178 mg/dL (85-499); IgG 702 mg/dL (610-1,616); IgM 48 mg/dL (35-242)
[2020-07-30 10:46] LABS: CD19 <1 %; CD20 <1 %
== END 2020-08-04 23:59 | disposition home or self-care (01) ==
LOC: INF 07:45
PROVIDERS: PCP Family Medicine; Visit Provider Psychiatry & Neurology Neurology
DX: G35 Multiple sclerosis (principal)
CPT/HCPCS: 36415; 80053; 82784; 88184; 88185; 96365; 96366; 96374; 96375; 96413; 96415; 85025; J1100; J1200; Q5119

== ENCOUNTER 2020-12-30 08:00 | Outpatient (RCR) | payer MEDICAID, SELFPAY ==
[2020-12-30] MEDS: Normal Saline Flush 10 ML SYR IVP (08:18)
[2020-12-30] MEDS: Dexamethasone 10 MG/ML VIAL IVP (08:30)
[2020-12-30] MEDS: diphenhydrAMINE 50 MG/ML VIAL IVP (08:30)
[2020-12-30] MEDS: Acetaminophen 325 MG TAB 650 MG PO (08:30)
[2020-12-30 08:35] VITALS: BP 120/81; PULSE 75; RESP 17; TEMP 36.7; O2SAT 97
[2020-12-30] MEDS: riTUXimab-PVVR 500 MG in Normal Saline 200 ML 62.5 MG IVPB (08:37)
[2020-12-30 09:12] LABS: Abs Immature Grans 0.06 10^3/uL (0.0-0.06); Absolute Basophil Count 0.04 10^3/uL (0.0-0.2); Absolute Eosinophil Count 0.34 10^3/uL (0.0-0.7); Absolute Monocyte Count 0.72 10^3/uL (0.1-0.8); Absolute Neutrophil Count 3.72 10^3/uL (1.2-6.7); Basophils % 0.6; HCT 44.8 % (40.0-50.0); HGB 14.9 g/dL (13.5-17.5); Immature Grans % 0.9; MCH 29.6 pg (27.0-33.0); MCHC 33.3 % (32.0-36.0); MCV 88.9 fL (80-95); MPV 10.3 fL (8.0-11.0); Monocytes % 10.6; Neutrophils % 54.9; Nucleated RBC 0 %; Platelet Count 346 10^3/uL (130-400); RBC 5.04 10^6/uL (4.36-5.78); RDW 12.7 % (11.8-14.1); RDW-SD 41.8 fL; WBC 6.78 10^3/uL (4.4-10.8)
[2020-12-30 09:15] VITALS: BP 119/66; PULSE 64; RESP 17; TEMP 36.7; O2SAT 99
[2020-12-30 09:30] LABS: ALT 63 U/L (16-63); AST 27 U/L (15-37); Albumin 3.8 g/dL (3.4-5.0); Alkaline Phosphatase 67 U/L (46-116); Anion Gap 8.4 mmol/L (3-11); BUN 14 mg/dL (7-18); Bilirubin, Total 0.5 mg/dL (0.2-1.0); CO2 29.6 mmol/L (21.0-32.0); CREATININE 0.9 mg/dL (0.70-1.30); Calcium 8.7 mg/dL (8.5-10.1); Chloride 106 mmol/L (98-107); Glucose 105 mg/dL (74-106); Potassium 4.4 mmol/L (3.5-5.1); Sodium 144 mmol/L (136-145); Total Protein 6.3 g/dL (6.4-8.2)
[2020-12-30 09:45] VITALS: BP 123/74; PULSE 63; RESP 17; TEMP 36.7; O2SAT 97
[2020-12-30 10:15] VITALS: BP 123/84; PULSE 68; RESP 16; TEMP 35.9; O2SAT 95
[2020-12-30 10:45] VITALS: BP 129/80; PULSE 65; RESP 17; TEMP 36.7; O2SAT 97
[2020-12-31 10:13] LABS: IgA 163 mg/dL (85-499); IgG 584 mg/dL (610-1,616); IgM 50 mg/dL (35-242)
== END 2021-01-04 23:59 | disposition home or self-care (01) ==
LOC: INF 08:00
PROVIDERS: PCP Family Medicine; Visit Provider Psychiatry & Neurology Neurology
DX: G35 Multiple sclerosis (principal)
CPT/HCPCS: 36415; 80053; 82784; 96365; 96366; 96374; 96375; 96413; 96415; 85025; J1100; J1200; Q5119

== ENCOUNTER 2021-04-14 01:46 | Outpatient (RCR) | payer MEDICAID, SELFPAY ==
[2021-04-14] MEDS: Normal Saline Flush 10 ML SYR IVP (07:46)
== END 2021-05-04 23:59 | disposition home or self-care (01) ==
LOC: INF 01:46
PROVIDERS: PCP Family Medicine; Visit Provider Psychiatry & Neurology Neurology
DX: G35 Multiple sclerosis (principal)
CPT/HCPCS: 96365; J2930

== ENCOUNTER 2021-05-28 03:40 | Outpatient (CLI) | payer MEDICAID, SELFPAY ==
[2021-05-29 15:18] LABS: CD19 <1 % (6-24); CD20 <1 % (6-24)
== END 2021-05-28 03:41 | disposition home or self-care (01) ==
LOC: LBO 03:40
PROVIDERS: PCP Family Medicine; Visit Provider Psychiatry & Neurology Neurology
DX: G35 Multiple sclerosis (principal)
CPT/HCPCS: 36415; 88184; 88185

== ENCOUNTER 2021-06-24 03:10 | Outpatient (CLI) | payer MEDICAID, SELFPAY ==
[2021-06-25 12:27] LABS: CD19 <1 % (6-24); CD20 <1 % (6-24)
== END 2021-06-24 03:11 | disposition home or self-care (01) ==
LOC: LBO 03:10
PROVIDERS: PCP Family Medicine; Visit Provider Psychiatry & Neurology Neurology
DX: G35 Multiple sclerosis (principal)
CPT/HCPCS: 36415; 88184; 88185

== ENCOUNTER 2021-07-28 03:13 | Outpatient (CLI) | payer MEDICAID, SELFPAY ==
[2021-07-29 10:16] LABS: HBs Antibody, Qual Negative (See Note); Hepatitis B Core Antibody Negative (Negative); Hepatitis B surface Ag Negative (Negative); Hepatitis C Ab w Rflx HCV PCR Negative (Negative)
[2021-07-29 10:56] LABS: CD19 <1 % (6-24); CD20 <1 % (6-24)
== END 2021-07-28 03:14 | disposition home or self-care (01) ==
LOC: LOS 03:13
PROVIDERS: PCP Family Medicine; Visit Provider Psychiatry & Neurology Neurology
DX: G35 Multiple sclerosis (principal)
CPT/HCPCS: 36415; 86704; 86706; 86803; 87340; 88184; 88185

== ENCOUNTER 2021-08-26 02:14 | Outpatient (CLI) | payer MEDICAID, SELFPAY ==
[2021-08-27 09:44] LABS: IgA 158 mg/dL (85-499); IgG 592 mg/dL (610-1,616); IgM 33 mg/dL (35-242)
[2021-08-27 14:40] LABS: CD19 <1 % (6-24); CD20 <1 % (6-24)
== END 2021-08-26 02:15 | disposition home or self-care (01) ==
LOC: LBO 02:14
PROVIDERS: PCP Family Medicine; Visit Provider Psychiatry & Neurology Neurology
DX: G35 Multiple sclerosis (principal)
CPT/HCPCS: 36415; 82784; 88184; 88185

== ENCOUNTER 2021-09-28 04:12 | Outpatient (CLI) | payer MEDICAID, SELFPAY ==
[2021-09-29 13:11] LABS: CD19 <1 % (6-24); CD20 <1 % (6-24)
== END 2021-09-28 04:13 | disposition home or self-care (01) ==
LOC: LBO 04:12
PROVIDERS: PCP Family Medicine; Visit Provider Psychiatry & Neurology Neurology
DX: G35 Multiple sclerosis (principal); Z79.899 Other long term (current) drug therapy
CPT/HCPCS: 36415; 82306; 88184; 88185

== ENCOUNTER 2021-10-29 03:05 | Outpatient (CLI) | payer MEDICAID, SELFPAY ==
[2021-10-29 07:27] LABS: Abs Immature Grans 0.06 10^3/uL (0.0-0.06); Absolute Basophil Count 0.05 10^3/uL (0.0-0.2); Absolute Eosinophil Count 0.32 10^3/uL (0.0-0.7); Absolute Lymphocyte Count 1.68 10^3/uL (1.2-3.4); Absolute Monocyte Count 0.93 10^3/uL (0.1-0.8); Absolute Neutrophil Count 4.36 10^3/uL (1.2-6.7); Basophils % 0.7; Eosinophils % 4.3; HCT 45.9 % (40.0-50.0); HGB 15.7 g/dL (13.5-17.5); Immature Grans % 0.8; Lymphocytes % 22.7; MCH 29.9 pg (27.0-33.0); MCHC 34.2 % (32.0-36.0); MCV 87 fL (80-95); MPV 9.1 fL (8.0-11.0); Monocytes % 12.6; Neutrophils % 58.9; Platelet Count 326 10^3/uL (130-400); RBC 5.25 10^6/uL (4.36-5.78); RDW 12.6 % (11.8-14.1); RDW-SD 40.7 fL
[2021-10-29 07:57] LABS: ALT 66 U/L (16-63); AST 27 U/L (15-37); Albumin 3.7 g/dL (3.4-5.0); Alkaline Phosphatase 77 U/L (46-116); Anion Gap 9.1 mmol/L (3-11); BUN 18 mg/dL (7-18); Bilirubin, Total 0.5 mg/dL (0.2-1.0); CO2 26.9 mmol/L (21.0-32.0); CREATININE 0.9 mg/dL (0.70-1.30); Calcium 8.5 mg/dL (8.5-10.1); Chloride 103 mmol/L (98-107); Glucose 108 mg/dL (74-106); Potassium 4.1 mmol/L (3.5-5.1); Sodium 139 mmol/L (136-145)
[2021-10-30 09:05] LABS: IgA 145 mg/dL (85-499); IgG 544 mg/dL (610-1,616); IgM 33 mg/dL (35-242)
[2021-10-30 12:53] LABS: CD19 <1 % (6-24); CD20 <1 % (6-24)
== END 2021-10-29 03:06 | disposition home or self-care (01) ==
LOC: LBO 03:05
PROVIDERS: PCP Family Medicine; Visit Provider Psychiatry & Neurology Neurology
DX: G35 Multiple sclerosis (principal)
CPT/HCPCS: 36415; 80053; 82784; 88184; 88185; 85025

== ENCOUNTER 2021-11-19 09:01 | Emergency (ER) | payer MEDICAID, SELFPAY ==
[2021-11-19 09:07] VITALS: BP 144/85; PULSE 75; RESP 20; TEMP 36.2; O2SAT 97
--- NOTE | 2021-11-19 10:09 | ED.GENADUL_ITS ---
Discharge Plan Disposition Patient Disposition: HOME Condition: Stable Discharge Details Clinical Impression: Laceration of finger, index Primary Care Provider: Tai Lopez ED Provider: China Andrea Home Meds and New Rx's Prescriptions: Continued dalfampridine 10 mg tablet extended release 12 hr 10 mg PO Q12H sildenafil [Viagra] 100 mg tablet 100 mg PO DAILY PRN (Reason: sexual activity) Qty: 10 12RF Rx Instructions: administer 30 minutes to 4 hours before activity cholecalciferol (vitamin D3) 5,000 UNIT capsule 10,000 unit PO DAILY multivitamin [Daily Multiple] 1 EACH tablet 1 ea PO DAILY Rituxan 10 MG/1 ML concentrate 10 mg IV q 6 months acetaminophen [Acetaminophen Extra Strength] 500 MG tablet 1,000 mg PO Q8H PRN PRNQty: 60 0RF ibuprofen 600 MG tablet 600 mg PO Q8H PRN PRNQty: 30 1RF Discharge Instructions Instructions: Finger Laceration (ED) Additional Instructions: suture removal in 10 days refrain from bending keep dry return with spreading redness, fever, worsening pain Referrals: Tai Lopez MD [Primary Care Provider] - Discharge Data Discharge Date/Time-TO BE ENTERED AT DEPARTURE: 11/19/21 10:25 Medical Decision Making tolerated suture placement well suture removal in 10 days return precautions discussed and pt expressed understanding Medical Records Medical records reviewed: Yes I reviewed the patient's medical records. Lab Data Lab results reviewed: Yes I reviewed the patient's lab results. HPI General Date/Time Provider Initiated Documentation: 11/19/21 10:09 . HPI Narrative: This 46-year-old gentleman who is otherwise healthy presents with laceration to his left finger about 45 minutes prior to arrival. Tetanus is up-to-date reportedly. Denies any strength or sensation change. Denies any difficulties with range of motion. Related Data Home Medications Medication Instructions Recorded Confirmed cholecalciferol (vitamin D3) 125 10,000 unit PO DAILY 05/25/16 11/19/21 mcg (5,000 unit) capsule multivitamin (Daily Multiple 1 ea PO DAILY 05/11/17 11/19/21 tablet) acetaminophen 500 mg tablet 1,000 mg PO Q8H PRN PRN #60 tabs 06/23/17 11/19/21 (Acetaminophen Extra Strength) ibuprofen 600 mg tablet 600 mg PO Q8H PRN PRN #30 tabs 06/23/17 11/19/21 rituximab 10 mg/mL 10 mg IV q 6 months 08/15/17 11/19/21 concentrate,intravenous (Rituxan) dalfampridine 10 mg 10 mg PO Q12H 04/07/20 11/19/21 tablet,extended release,12 hr sildenafil 100 mg tablet (Viagra) 100 mg PO DAILY PRN sexual 10/09/21 11/19/21 activity #10 tabs Previous Rx's Medication Instructions Recorded acetaminophen 500 mg tablet 1,000 mg PO Q8H PRN PRN #60 tabs 06/23/17 (Acetaminophen Extra Strength) ibuprofen 600 mg tablet 600 mg PO Q8H PRN PRN #30 tabs 06/23/17 sildenafil 100 mg tablet (Viagra) 100 mg PO DAILY PRN sexual 10/09/21 activity #10 tabs Allergies Allergy/AdvReac Type Severity Reaction Status Date / Time shrimp Allergy hands swell Verified 11/19/21 09:10 General Stated Complaint: Laceration ZAK: 3 Review of Systems All systems reviewed & are unremarkable except as noted in HPI and below PFSH All Active Problems (Updated 11/19/21 @ 10:11 by LISSETTE Milton) Laceration of finger, index (Acute) Lower urinary tract symptoms (LUTS) (Acute) Erectile dysfunction (Chronic) secondary to MS Neurogenic bladder (Chronic) secondary to MS Multiple sclerosis, relapsing-remitting (Acute 05/25/16) Carpal tunnel syndrome of left wrist (Acute) s/p L ECTR DOS: 07/08/2020 Tick bite (Acute) Carpal tunnel syndrome of right wrist (Acute 05/12/17) Right optic neuritis (Acute 05/25/16) Surgical History H/O total cystectomy lower buttocks S/P carpal tunnel release Right endoscopic 06/2017 S/P vasectomy x2 Family History Paternal Grandfather Stroke Paternal Cousin Multiple sclerosis Social History Smoking/Tobacco Use Status: Former Tobacco Use Quit Date: 03/07/13 Smoking risk assessment performed?: Yes Alcohol Intake: never Drug use: Never Substance use type: does not use Household members: spouse and children Housing: house Number of Children: 5 current occupation: [employer], [employer] Pets and animals: Yes What is your relationship status?: Panel score (0-1 are the most socially isolated patients): 1 Do you feel safe at home: Yes Do you feel safe in your relationship?: Yes Additional Social history: unable to assess privatley Exam Const General: cooperative, comfortable and no acute distress Nutritional Appearance: average body habitus Orientation: alert and oriented x3 Extrem Hand/finger images: 1. n/v intact ROM intact Course Vital Signs Vital signs: Vital Signs Temperature 36.2 C L 11/19/21 09:07 Pulse 75 11/19/21 09:07 Respiratory Rate 20 11/19/21 09:07 Blood Pressure 144/85 H 11/19/21 09:07 Pulse Oximetry 97 11/19/21 09:07 Temperature 36.2 C L 11/19/21 09:07 Temperature Source Temporal Artery Scan 11/19/21 09:07 Pulse 75 11/19/21 09:07 Respiratory Rate 20 11/19/21 09:07 Respiratory Effort Non-Labored 11/19/21 09:09 Blood Pressure 144/85 H 11/19/21 09:07 Blood Pressure Position Sitting 11/19/21 09:07 Pulse Oximetry 97 11/19/21 09:07 Oxygen Delivery Method Room Air 11/19/21 09:07 Oxygen Flow Rate 0 11/19/21 09:07 Pain Level 1 11/19/21 09:07 Procedures Laceration Laceration 1: Site: hand Side (If applicable): left Size (cm): 1.5 Description: linear Depth: simple, single layer Amount of anesthesia used (mL): 2 Pre-repair: wound explored Skin layer closed with: nylon Size (cm): 5-0 Number of sutures: 1 Technique: horizontal mattress Number of sutures: 1 Technique: simple, interrupted
== END 2021-11-19 10:25 | disposition home or self-care (01) ==
PROVIDERS: Emergency Provider Physician Assistant; PCP Family Medicine
DX: S61.211A Laceration without foreign body of left index finger without damage to nail, initial encounter (principal); Z87.891 Personal history of nicotine dependence; X58.XXXA Exposure to other specified factors, initial encounter
CPT/HCPCS: 12001; 99281; 99282

== ENCOUNTER 2021-12-31 03:38 | Outpatient (RCR) | payer MEDICAID, SELFPAY ==
[2021-12-31] VITALS (7 sets, daily range): BP systolic 110–123; BP diastolic 67–79; PULSE 64–79; RESP 18–20; TEMP 35.3–36.5; O2SAT 95–100
[2021-12-31] MEDS: Acetaminophen 325 MG TAB 650 MG PO (07:22)
[2021-12-31] MEDS: diphenhydrAMINE 50 MG/ML VIAL IVP (07:28)
[2021-12-31] MEDS: Dexamethasone 10 MG/ML VIAL IVP (07:30)
[2021-12-31] MEDS: Normal Saline Flush 10 ML SYR IVP (07:35)
[2021-12-31] MEDS: riTUXimab-PVVR 500 MG in Normal Saline 200 ML 62.5 MG IVPB (07:46)
[2021-12-31 08:04] LABS: Abs Immature Grans 0.07 10^3/uL (0.0-0.06); Absolute Basophil Count 0.04 10^3/uL (0.0-0.2); Absolute Eosinophil Count 0.27 10^3/uL (0.0-0.7); Absolute Lymphocyte Count 1.94 10^3/uL (1.2-3.4); Absolute Monocyte Count 0.69 10^3/uL (0.1-0.8); Absolute Neutrophil Count 5.32 10^3/uL (1.2-6.7); Basophils % 0.5; Eosinophils % 3.2; HCT 46.2 % (40.0-50.0); HGB 15.9 g/dL (13.5-17.5); Immature Grans % 0.8; Lymphocytes % 23.3; MCHC 34.4 % (32.0-36.0); MCV 87 fL (80-95); MPV 9.3 fL (8.0-11.0); Monocytes % 8.3; Neutrophils % 63.9; Platelet Count 375 10^3/uL (130-400); RDW 12.3 % (11.8-14.1); RDW-SD 39.5 fL; WBC 8.33 10^3/uL (4.4-10.8)
[2021-12-31 08:31] LABS: ALT 58 U/L (16-63); AST 26 U/L (15-37); Albumin 3.8 g/dL (3.4-5.0); Alkaline Phosphatase 72 U/L (46-116); Anion Gap 7.4 mmol/L (3-11); BUN 17 mg/dL (7-18); Bilirubin, Total 0.5 mg/dL (0.2-1.0); CO2 27.6 mmol/L (21.0-32.0); CREATININE 0.9 mg/dL (0.70-1.30); Chloride 102 mmol/L (98-107); Estimated GFR 107.33 (mL/min/1.73m2); Glucose 124 mg/dL (74-106); Sodium 137 mmol/L (136-145)
[2022-01-01 10:07] LABS: IgA 153 mg/dL (85-499); IgG 533 mg/dL (610-1,616); IgM 37 mg/dL (35-242)
[2022-01-01 12:11] LABS: CD19 <1 % (6-24); CD20 <1 % (6-24)
== END 2022-01-04 23:59 | disposition home or self-care (01) ==
LOC: INF 03:38
PROVIDERS: PCP Family Medicine; Visit Provider Psychiatry & Neurology Neurology
DX: G35 Multiple sclerosis (principal)
CPT/HCPCS: 36415; 80053; 82784; 88184; 88185; 96365; 96366; 96374; 96413; 96415; 85025; J1100; J1200; Q5119

== ENCOUNTER 2022-01-15 22:35 | Outpatient (REF) | payer MEDICAID, SELFPAY | END 2022-01-15 22:36 | disposition home or self-care (01) | LOC: LBN 22:35 | PROVIDERS: PCP Family Medicine; Visit Provider Nurse Practitioner Family | DX: L03.115 Cellulitis of right lower limb (principal) | CPT/HCPCS: 87077; 87070; 87186; 87205 ==

== ENCOUNTER 2022-02-08 10:54 | Emergency (ER) | payer MEDICAID, SELFPAY ==
[2022-02-08 11:05] VITALS: BP 122/72; PULSE 76; RESP 18; TEMP 37; O2SAT 98
--- NOTE | 2022-02-08 11:15 | DI.RAD_ITS ---
Exam(s) XR SHOULDER RT COMPLETE 2+V EXAM: XR SHOULDER RT COMPLETE 2+V CLINICAL HISTORY: fall on shoulder yesterday, lateral pain. TECHNIQUE: 2D digital imaging was performed. Five views. COMPARISON: No exams were available for comparison FINDINGS: BONES: No acute fracture is present. No bony destructive lesion is seen. JOINTS: No dislocation present. Mild spurring inferior glenoid. Glenohumeral joint space is maintai jazmine. Mild spurring is seen at the AC joint. The AC joint is not widened. SOFT TISSUE: Normal. IMPRESSION: Unremarkable radiographs of the right shoulder. DATA REPOSITORY: RADIATION DOSE DELIVERED:
--- NOTE | 2022-02-08 11:30 | ED.GENADUL_ITS ---
Discharge Plan Disposition Patient Disposition: Home Condition: Good Discharge Details Clinical Impression: Acute pain of right shoulder, Impingement syndrome of right shoulder Primary Care Provider: Tai Lopez ED Provider: Shana Treviño Home Meds and New Rx's Prescriptions: Continued dalfampridine 10 mg tablet extended release 12 hr 10 mg PO Q12H sildenafil [Viagra] 100 mg tablet 100 mg PO DAILY PRN (Reason: sexual activity) Qty: 10 12RF Rx Instructions: administer 30 minutes to 4 hours before activity cholecalciferol (vitamin D3) 5,000 UNIT capsule 10,000 unit PO DAILY multivitamin [Daily Multiple] 1 EACH tablet 1 ea PO DAILY Rituxan 10 MG/1 ML concentrate 10 mg IV q 6 months acetaminophen [Acetaminophen Extra Strength] 500 MG tablet 1,000 mg PO Q8H PRN PRNQty: 60 0RF ibuprofen 600 MG tablet 600 mg PO Q8H PRN PRNQty: 30 1RF No Action cephalexin 500 mg capsule 500 mg PO QID Qty: 28 0RF Discharge Instructions Instructions: Shoulder Pain (ED) Additional Instructions: Your x-ray is reassuring here today. I am concerned that you may have damaged your rotator cuff. As we discussed, this may be inflammation such as impingement syndrome. You were given a steroid and local anesthetic injection today. Please take it easy this afternoon. Please encourage gentle range of motion as we discussed to maintain your full range of motion. Can use Tylenol and/or ibuprofen as needed for discomfort. I have referred you to orthopedics, please call their office, number listed below, to schedule follow-up appointmen t. If you develop fever/chills, redness, warmth, increased pain or other new/worsening symptom please seek care urgently once again. Referrals: Moses Leon MD [ [facility] STAFF PHYSICIAN] - Discharge Data Discharge Date/Time-TO BE ENTERED AT DEPARTURE: 02/08/22 13:03 Medical Decision Making Patient is a pleasant 46-year-old [id number] male with past medical history significant for MS, presenting today with chief complaint of right shoulder pain. He reports that he has foot drag on the right side and tripped while walking on a sidewalk yesterday. States that he fell landing on both of his elbows and his right shoulder jammed upward. Since then he has been having lateral sided pain that radiates towards the right elbow. Also endorsing some tingling in the ulnar digits of the right hand which seems to be improving. He denies striking his head, no loss of conscious. Denies any pain in his neck or back. No chest pain, shortness of breath or other evidence of trauma during the fall. He states that his tetanus is up-to-date. 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 Hemodynamically stable. He has a small area of abrasion right elbow. He is 2+ distal pulses. Full range of motion in the e lbow, wrist, hand. 5 and 5 liability claims manager strength. Neurovascularly intact although he does have some subjective tingling in the ring and small digit, sensation is intact at the time of testing. His forward elevation is to approximately 110 degrees. External rotation is lacking approximately 20 degrees compared to contralateral side. Internal rotation is to the buttock. No pain over the anterior aspect of the shoulder, no Taqueria deformity. Pain is maximal laterally with point tenderness over the subacromial space. No AC joint deformity or pain with palpation over this area. No pain with palpation elsewhere about the humerus. No pain posteriorly. Patient does have weakness with Neer and Rios as well as significant discomfort. Primarily concern for rotator cuff injury. He does have some weakness but given his recent injury, this could be associated with pain and impingement syndrome. Will obtain x-ray to evaluate for potential bony abnormality although I do find this less likely. If x-ray is without evidence to suggest fracture, will move forward with steroid injection. Patient I discussed with/benefits as well as expected procedural steps. He has not been and any steroids recently for his MS. FINDINGS: BONES: No acute fracture is present. No bony destructive lesion is seen. JOINTS: No dislocation present.? Mild spurring inferior glenoid.? Glenohumeral joint space is maintained.? Mild spurring is seen at the AC joint.? The AC joint is not widened. SOFT TISSUE: Normal. IMPRESSION: Unremarkable radiographs of the right shoulder. Patient denies discussed these findings. Again we discussed her/benefits as well as expected procedural steps and alternatives of subacromial joint injection. Patient voiced understanding and wishes to proceed. Consent was obtained. Please see procedure note. Patient tolerated this well. Procedure was performed using standard sterile technique. Patient had immediate improvement in his discomfort. We discussed encouraging passive range of motion and exercises demonstrated to the patient to help prevent any type of frozen shoulder. He has seen Dr. Leon for other orthopedic issues in the past and we will follow-up with him once again. We discussed activities that he should avoid. Return precautions were discussed. All his questions and concerns were addressed and he is in agreement with this plan. Sign Out No HPI General Date/Time Provider Initiated Documentation: 02/08/22 11:08 . Limitations to Documentation: no limitations . Information obtained by: patient and RN notes reviewed . History of Present Illness 46 year old M presents to the emergency department with the chief complaint of right shoulder pain, described as severe, Quality is described as aching, and is localized to the right and upper extremity. Patient extremity (toward right elbow). Patient started experiencing this day(s) (1) and it has been constant. Immobilization improves symptom(s), Movement worsens symptoms . Patient notes no other symptoms.. Patient did receive the following treatments prior to arrival, none Related Data Home Medications Medication Instructions Recorded Confirmed cholecalciferol (vitamin D3) 125 10,000 unit PO DAILY 05/25/16 02/15/22 mcg (5,000 unit) capsule multivitamin (Daily Multiple 1 ea PO DAILY 05/11/17 02/15/22 tablet) acetaminophen 500 mg tablet 1,000 mg PO Q8H PRN PRN #60 tabs 06/23/17 02/15/22 (Acetaminophen Extra Strength) ibuprofen 600 mg tablet 600 mg PO Q8H PRN PRN #30 tabs 06/23/17 02/15/22 rituximab 10 mg/mL 10 mg IV q 6 months 08/15/17 02/15/22 concentrate,intravenous (Rituxan) dalfampridine 10 mg 10 mg PO Q12H 04/07/20 02/15/22 tablet,extended release,12 hr sildenafil 100 mg tablet (Viagra) 100 mg PO DAILY PRN sexual 10/09/21 02/15/22 activity #10 tabs cephalexin 500 mg capsule 500 mg PO QID #28 caps 02/15/22 02/15/22 Previous Rx's Medication Instructions Recorded acetaminophen 500 mg tablet 1,000 mg PO Q8H PRN PRN #60 tabs 06/23/17 (Acetaminophen Extra Strength) ibuprofen 600 mg tablet 600 mg PO Q8H PRN PRN #30 tabs 06/23/17 sildenafil 100 mg tablet (Viagra) 100 mg PO DAILY PRN sexual 10/09/21 activity #10 tabs cephalexin 500 mg capsule 500 mg PO QID #28 caps 02/15/22 Allergies Allergy/AdvReac Type Severity Reaction Status Date / Time shrimp Allergy hands swell Verified 02/15/22 11:10 General Stated Complaint: Orthopedic ZAK: 4 Review of Systems Constitutional Constitutional: Reports as per HPI, Denies chills, Denies fever(s), Denies headache(s) and Denies weakness ENT Ears, Nose, Mouth, and Throat: Denies headache(s) Cardiovascular Cardiovascular: Reports as per HPI Respiratory Respiratory: Reports as per HPI and Denies cough Musculoskeletal Musculoskeletal: Reports as per HPI and Denies tingling Integumentary/Breasts Skin/Breast: Reports as per HPI, Denies rash and Denies wounds Neurologic Neurologic: Reports as per HPI, Denies headache(s), Denies tingling, Denies paresthesias and Denies weakness PFSH All Active Problems (Updated 02/15/22 @ 11:21 by Broderick Howard NP) Skin infection (Acute) Acute pain of right shoulder (Acute) Impingement syndrome of right shoulder (Acute) Lower urinary tract symptoms (LUTS) (Acute) Erectile dysfunction (Chronic) secondary to MS Neurogenic bladder (Chronic) secondary to MS Multiple sclerosis, relapsing-remitting (Acute 05/25/16) Carpal tunnel syndrome of left wrist (Acute) s/p L ECTR DOS: 07/08/2020 Tick bite (Acute) Carpal tunnel syndrome of right wrist (Acute 05/12/17) Right optic neuritis (Acute 05/25/16) Surgical History H/O total cystectomy lower buttocks S/P carpal tunnel release Right endoscopic 06/2017 S/P vasectomy x2 Family History Paternal Grandfather Stroke Paternal Cousin Multiple sclerosis Social History Smoking/Tobacco Use Status: Former Tobacco Use Quit Date: 03/07/13 Smoking risk assessment performed?: Yes Alcohol Intake: current Alcohol type: beer Drug use: Never Substance use type: does not use Household members: spouse and children Housing: house Number of Children: 5 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, [employer] Pets and animals: Yes What is your relationship status?: Panel score (0-1 are the most socially isolated patients): 1 Do you feel safe at home: Yes Do you feel safe in your relationship?: Yes Additional Social history: unable to assess [facility] Exam Const General: cooperative, healthy appearing, comfortable, no acute distress, well developed and well groomed Nutritional Appearance: average body habitus and well nourished Orientation: alert and awake Resp Effort & Inspection: normal respiratory effort, able to speak in complete sentences and no respiratory distress Cardio Rate: regular rate Rhythm: regular rhythm Skin General skin exam: no rashes or lesions noted Lesions: no lesions Rashes: no rashes Trauma: no lacerations or abrasions Neuro General: patient alert and patient awake Cognition: normal cognition Speech: speech normal Gait: normal gait Motor: muscle tone normal throughout Sensory Exam: no sensory deficits noted Extrem Shoulder/upper arm images: 1. ARea of maximal discomfort. Pain radiating down toward elbow with palpation over this area. Limited ROM. 2+ distal pulses. No palpable or visible deformity. Neurologically intact. No ecchymosis, break in the skin. AC joint WNL. +Neer and Hawkin, negative Speed. Psych Appearance: grossly normal and well kempt Mental Status: mental status grossly normal Speech and Movement: speech and movement normal Course Vital Signs Vital signs: Vital Signs Temperature 37.0 C 02/08/22 11:05 Pulse 76 02/08/22 11:05 Respiratory Rate 18 02/08/22 11:05 Blood Pressure 122/72 02/08/22 11:05 Pulse Oximetry 98 02/08/22 11:05 Temperature 37.0 C 02/08/22 11:05 Temperature Source Temporal Artery Scan 02/08/22 11:05 Pulse 76 02/08/22 11:05 Respiratory Rate 18 02/08/22 11:05 Respiratory Effort Non-Labored 02/08/22 11:08 Blood Pressure 122/72 02/08/22 11:05 Pulse Oximetry 98 02/08/22 11:05 Procedures Joint Aspiration/Injection Joint Asp./Inject. 1: Time Out Performed: Yes Side of body: right Ultrasound Guidance: No Skin Prep: Chlorhexidene Local Anesthetic: Lidocaine 1% Amount of anesthesia used (mL): 4 Needle Size Used: 22G Medication Injected, if any: Triamcinolone Acetate Amount of Medication Injected (mls): 1 Patient Tolerated Procedure: well and no complications Complications: none
[2022-02-08] MEDS: Triamcinolone 40 MG/ML VIAL IM (12:44)
[2022-02-08] MEDS: Lidocaine 1% Multi-Dose 20 ML VIAL IJ (12:47)
== END 2022-02-08 13:03 | disposition home or self-care (01) ==
PROVIDERS: Emergency Provider Physician Assistant; PCP Family Medicine
DX: G89.11 Acute pain due to trauma (principal); M25.511 Pain in right shoulder; M75.41 Impingement syndrome of right shoulder; W01.0XXA Fall on same level from slipping, tripping and stumbling without subsequent striking against object, initial encounter; Y92.480 Sidewalk as the place of occurrence of the external cause; Y93.01 Activity, walking, marching and hiking
CPT/HCPCS: 20610; 96372; 99284; 73030; J3490

== ENCOUNTER 2022-02-11 01:34 | Outpatient (CLI) | payer MEDICAID, SELFPAY ==
[2022-02-11 21:05] LABS: PSA, Diagnostic 0.8 ng/mL (<=2.5)
== END 2022-02-11 01:35 | disposition home or self-care (01) ==
LOC: LBO 01:34
PROVIDERS: PCP Family Medicine; Visit Provider Urology
DX: R39.89 Other symptoms and signs involving the genitourinary system (principal); Z80.42 Family history of malignant neoplasm of prostate; N31.8 Other neuromuscular dysfunction of bladder; G35 Multiple sclerosis; N52.8 Other male erectile dysfunction; R39.11 Hesitancy of micturition
CPT/HCPCS: 36415; 84153

== ENCOUNTER 2022-06-22 20:28 | Emergency (ER) | payer MEDICAID, SELFPAY ==
[2022-06-22 20:36] VITALS: BP 132/78; PULSE 78; RESP 17; TEMP 36.8; O2SAT 98
--- NOTE | 2022-06-22 21:00 | DI.RAD_ITS ---
Exam(s) XR FOOT LT LIMITED EXAM: XR FOOT LT LIMITED CLINICAL HISTORY: pain 1st MTP joint. TECHNIQUE: 2D digital imaging was performed of the left foot. Two images were obtained. AP, obliqu e and lateral views were obtained. COMPARISON: No exams were available for comparison FINDINGS: BONES: No acute fracture is present. No bony destructive lesion is seen. Small plantar calcaneal spur . Small enthesophyte posterior calcaneus. JOINTS: No dislocation present. SOFT TISSUE: Normal. IMPRESSION: No acute abnormality. DATA REPOSITORY: RADIATION DOSE DELIVERED:
--- NOTE | 2022-06-22 21:00 | DI.RAD_ITS ---
Exam(s) XR KNEE LT 4V AP,LAT,CHARLINE,PAT EXAM: XR KNEE LT 4V AP,LAT,CHARLINE,PAT CLINICAL HISTORY: mid patella pain after fall. TECHNIQUE: 2D digital imaging was performed of the left knee. Five images were obtained. Merchant, AP, lateral and PA tunnel views were obtained. COMPARISON: No exams were available for comparison FINDINGS: BONES: No acute fracture is present. No bony destructive lesion is seen. JOINTS: The knee is normally aligned. There is a small suprapatellar effusion. SOFT TISSUE: There is soft tissue swelling anterior to the patella. IMPRESSION: 1. No acute fracture or dislocation. 2. Small suprapatellar effusion. 3. Soft tissue swelling anterior to the patella. DATA REPOSITORY: RADIATION DOSE DELIVERED:
--- NOTE | 2022-06-22 22:47 | DI.VRAD_ITS ---
PROCEDURE INFORMATION: Exam: XR Left Knee Exam date and time: 06/22/2022 9:23 PM Age: 46 years old Clinical indication: Other: Mid patella pain after fall TECHNIQUE: Imaging protocol: Radiologic exam of the left knee. Views: 4 or more views. COMPARISON: No relevant prior studies available. FINDINGS: Bones/joints: Trace suprapatellar effusion. Soft tissues: Soft tissue swelling, cannot rule out prepatellar bursal effusion. IMPRESSION: No displaced fractures or dislocations. Soft tissue swelling, prepatellar effusion. Dictated and Authenticated by: Jeff Braden MD. Ordering:JEREMY Feliz MD
--- NOTE | 2022-06-22 22:51 | DI.VRAD_ITS ---
PROCEDURE INFORMATION: Exam: XR Left Foot Exam date and time: 06/22/2022 9:29 PM Age: 46 years old Clinical indication: Other: Pain 1st mtp joint TECHNIQUE: Imaging protocol: Radiologic exam of the left foot. Views: 1 or 2 views. COMPARISON: CR XR KNEE LT 4V AP,LAT,CHARLINE,PAT 06/22/2022 9:23 PM FINDINGS: Bones/joints: Posterior calcaneal enthesophyte. Plantar calcaneal spurring. Mild degenerative changes at the 1st MTP joint with joint space narrowing. Soft tissues: Normal. IMPRESSION: No acute fractures or dislocations. Degenerative changes. Dictated and Authenticated by: Jeff Braden MD. Ordering:JEREMY Feliz MD
--- NOTE | 2022-06-22 22:55 | W.ED.GENAD ---
Discharge Plan Disposition Patient Disposition: Home Discharge Details Clinical Impression: Left knee pain, Bursitis of left knee, Acute pain of left foot Primary Care Provider: Tai Lopez ED Provider: Tray Light Home Meds and New Rx's Prescriptions: No Action dalfampridine 10 mg tablet extended release 12 hr 10 mg PO Q12H sildenafil [Viagra] 100 mg tablet 100 mg PO DAILY PRN (Reason: sexual activity) Qty: 10 12RF Rx Instructions: administer 30 minutes to 4 hours before activity cholecalciferol (vitamin D3) 5,000 UNIT capsule 10,000 unit PO DAILY multivitamin [Daily Multiple] 1 EACH tablet 1 ea PO DAILY Rituxan 10 MG/1 ML concentrate 10 mg IV q 6 months acetaminophen [Acetaminophen Extra Strength] 500 MG tablet 1,000 mg PO Q8H PRN PRNQty: 60 0RF ibuprofen 600 MG tablet 600 mg PO Q8H PRN PRNQty: 30 1RF Discharge Instructions Instructions: Knee Bursitis (ED) Additional Instructions: At this time you have a bursa inflammation in your left knee at the prepatellar bursa. Please wrap it with an Rajinder wrap throughout the day. Please ice it frequently throughout the day. Please take 800 mg of Motrin every 6-8 hours as needed for pain. This is the maximum dose. Additionally for your foot I would recommend cutting out a circular area on a thick pair of insoles where you are ball of your foot is to remove the pressure from that area and give it some rest. Please ice it frequently as well. Please do your best to stay off of your foot and left knee as much as possible over the next 7 days. Only wear thick and comfortable shoes for your feet. I suspect it will take 4 to 6 weeks for the bursal irritation to improve. If you notice any redness or warmth or fever or chills this could represent infection. Please return immediately if this occurs. If you notice any worsening of your symptoms, or any new symptoms such as vomiting, diarrhea, fever, chills, shortness of breath, chest pain, numbness, weakness, or fainting , please return immediately to the emergency department for reevaluation. Please follow up with your primary care provider as soon as possible for reassessment and reevaluation. As always, it was a pleasure participating in your medical care today. Referrals: Tai Lopez MD [Primary Care Provider] - Medical Decision Making 46-year-old male with a past medical history of MS on rituximab, previous Planter fasciitis, who presents today for evaluation of left knee and foot pain. Patient states that on Tuesday which was 4 days ago he fell and landed on the front of his left knee. There is mild soreness then, but over the last 4 days it is continued to worsen and pain and swelling. And then today he felt a pop while walking, which continued his pain. No other falls or trauma otherwise. Pain is made worse with movement. No significant pain at rest. No redness or fever. He does feel like the knee is getting stiff, but he states that this improves when he walks and ambulates on it. Pain does not improve with ambulation now. In addition to this the patient has had also pain in the ball of his left front foot. It has been present for the last few days. He states that it feels similar to his plantar fasciitis. Pain is made worse with movement and weightbearing. He states that he has not been using his regular well-padded shoes for the last few months which has impacted it. No other complaints at this time. No other modifying factors. Physical exam demonstrates evidence of prepatellar bursa inflammation. Notable effusion in that region. No signs of infective or septic bursitis. No evidence of cellulitis. No warmth to suggest infection. Knee is otherwise stable. Suspect notable prepatellar bursitis x-ray was read as negative per radiology. Will recommend tight Rajinder wrap, NSAIDs, and frequent icing. In regards to the foot, I suspect that there is a mild component of metatarsalgia likely from stress or potential tendon irritation. X-ray negative for acute process. Will recommend creating a donut hole to relieve stress on that spot. Recommend regular icing and NSAIDs as well. 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 He will try to stay off of that as best he can though with his cane. He does not want any crutches. Recommend change in footwear, as well as that he may need steroid injection if his symptoms do not improve over the next week or 2. Discussed concerning red flags for which to return. I have extensively reviewed the treatment plan and discharge instructions with the patient. I have addressed all patient concerns at this time. The patient was made aware of what symptoms to monitor for that would warrant a return to the emergency department. Discussed the plan with the patient, they demonstrate verbal understanding and agreement with our assessment and plan at this time. The documentation in this chart was dictated using [employer] dictation software. Please excuse any dictation errors. FINDINGS: Bones/joints: Posterior calcaneal enthesophyte. Plantar calcaneal spurring. Mild degenerative changes at the 1st MTP joint with joint space narrowing. Soft tissues: Normal. IMPRESSION: No acute fractures or dislocations. Degenerative changes. Thank you for allowing us to participate in the care of your patient. Dictated and Authenticated by: Jeff Braden MD 06/22/2022 10:51 PM Eastern Time ([place] & [place]) FINDINGS: Bones/joints: Trace suprapatellar effusion. Soft tissues: Soft tissue swelling, cannot rule out prepatellar bursal effusion. IMPRESSION: No displaced fractures or dislocations. Soft tissue swelling, prepatellar effusion. Thank you for allowing us to participate in the care of your patient. Dictated and Authenticated by: Jeff Braden MD 06/22/2022 10:46 PM Eastern Time ([place] & [place]) HPI General Date/Time Provider Initiated Documentation: 06/22/22 20:48. HPI Narrative: 46-year-old male with a past medical history of MS on rituximab, previous Planter fasciitis, who presents today for evaluation of left knee and foot pain. Patient states that on Tuesday which was 4 days ago he fell and landed on the front of his left knee. There is mild soreness then, but over the last 4 days it is continued to worsen and pain and swelling. And then today he felt a pop while walking, which continued his pain. No other falls or trauma otherwise. Pain is made worse with movement. No significant pain at rest. No redness or fever. He does feel like the knee is getting stiff, but he states that this improves when he walks and ambulates on it. Pain does not improve with ambulation now. In addition to this the patient has had also pain in the ball of his left front foot. It has been present for the last few days. He states that it feels similar to his plantar fasciitis. Pain is made worse with movement and weightbearing. He states that he has not been using his regular well-padded shoes for the last few months which has impacted it. No other complaints at this time. No other modifying factors. Related Data Home Medications Medication Instructions Recorded Confirmed cholecalciferol (vitamin D3) 125 10,000 unit PO DAILY 05/25/16 04/12/22 mcg (5,000 unit) capsule multivitamin (Daily Multiple 1 ea PO DAILY 05/11/17 04/12/22 tablet) acetaminophen 500 mg tablet 1,000 mg PO Q8H PRN PRN #60 tabs 06/23/17 04/12/22 (Acetaminophen Extra Strength) ibuprofen 600 mg tablet 600 mg PO Q8H PRN PRN #30 tabs 06/23/17 04/12/22 rituximab 10 mg/mL 10 mg IV q 6 months 08/15/17 04/12/22 concentrate,intravenous (Rituxan) dalfampridine 10 mg 10 mg PO Q12H 04/07/20 04/12/22 tablet,extended release,12 hr sildenafil 100 mg tablet (Viagra) 100 mg PO DAILY PRN sexual 10/09/21 04/12/22 activity #10 tabs Previous Rx's Medication Instructions Recorded acetaminophen 500 mg tablet 1,000 mg PO Q8H PRN PRN #60 tabs 06/23/17 (Acetaminophen Extra Strength) ibuprofen 600 mg tablet 600 mg PO Q8H PRN PRN #30 tabs 06/23/17 sildenafil 100 mg tablet (Viagra) 100 mg PO DAILY PRN sexual 10/09/21 activity #10 tabs Allergies Allergy/AdvReac Type Severity Reaction Status Date / Time shrimp Allergy hands swell Verified 04/12/22 08:20 General Stated Complaint: Orthopedic ZAK: 4 Review of Systems All systems reviewed & are unremarkable except as noted in HPI and below PFSH All Active Problems Left knee pain (Acute) Bursitis of left knee (Acute) Acute pain of left foot (Acute) Spastic monoplegia of lower extremity (Acute) Family history of prostate cancer (Acute) Traumatic tear of right rotator cuff (Acute ~02/2022) Wound of skin (Acute) Skin infection (Acute) Lower urinary tract symptoms (LUTS) (Acute) Erectile dysfunction (Chronic) secondary to MS Neurogenic bladder (Chronic) secondary to MS Multiple sclerosis, relapsing-remitting (Acute 05/25/16) Carpal tunnel syndrome of left wrist (Acute) s/p L ECTR DOS: 07/08/2020 Tick bite (Acute) Carpal tunnel syndrome of right wrist (Acute 05/12/17) Right optic neuritis (Acute 05/25/16) Surgical History H/O total cystectomy lower buttocks S/P carpal tunnel release Right endoscopic 06/2017 S/P vasectomy x2 Family History Paternal Grandfather Stroke Paternal Cousin Multiple sclerosis Social History Smoking/Tobacco Use Status: Former Tobacco Use Quit Date: 03/07/13 Smoking risk assessment performed?: Yes Alcohol Intake: current Alcohol type: beer Drug use: Never Substance use type: does not use Household members: spouse and children Housing: house Number of Children: 5 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 3.ENT: Atraumatic external nose and ears. Moist MM. Neck: Symmetric, trachea midline, No thyromegaly. 4.CVS: +S1/S2, No murmurs or gallops. Peripheral pulses 2+ and equal in all extremities. Brisk capillary refill in all extremities. 5.RESP: Unlabored respiratory effort. Clear to auscultation bilaterally. No wheezes rales or rhonchi 6.GI: Soft, Nontender/Nondistended, No hepatosplenomegaly. No guarding or rebound. 7.MSK: Patient's left knee demonstrates notable swelling over the prepatellar space. No redness or warmth to suggest infection. No significant lateral swelling. No posterior knee pain. Pain is present only in the prepatellar area with movement. No pain in the knee. Pain in the prepatellar space is worsened with flexion and extension. No significant pain with varus or valgus strain. No pain with Ladi's test. No joint laxity with anterior posterior drawer test or lateral or medial stresses. Left foot demonstrates minimal tenderness over the first MTP joint. No redness. No abnormalities. No signs of foreign body or infection 8.Skin: Warm, Dry. No rashes or lesions. 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 Sensation grossly intact, no focal neurologic deficits. 10.Psych: (AAO) x3. Appropriate mood and affect Course Vital Signs Vital signs: Vital Signs Temperature 36.8 C 06/22/22 20:36 Pulse 78 06/22/22 20:36 Respiratory Rate 17 06/22/22 20:36 Blood Pressure 132/78 06/22/22 20:36 Pulse Oximetry 98 06/22/22 20:36 Temperature 36.8 C 06/22/22 20:36 Temperature Source Temporal Artery Scan 06/22/22 20:36 Pulse 78 06/22/22 20:36 Respiratory Rate 17 06/22/22 20:36 Respiratory Effort Normal 06/22/22 20:39 Blood Pressure 132/78 06/22/22 20:36 Blood Pressure Position Sitting 06/22/22 20:36 Pulse Oximetry 98 06/22/22 20:36 Oxygen Delivery Method Room Air 06/22/22 20:36 Oxygen Flow Rate 0 06/22/22 20:36 Pain Level 7 06/22/22 20:36
[2022-06-22 23:16] VITALS: BP 133/98; PULSE 76; RESP 18; O2SAT 95
== END 2022-06-22 23:18 | disposition home or self-care (01) ==
PROVIDERS: Emergency Provider Student in an Organized Health Care Education/Training Program; PCP Family Medicine
DX: M70.52 Other bursitis of knee, left knee (principal); M25.562 Pain in left knee; M79.672 Pain in left foot
CPT/HCPCS: 99284; 73564; 73620; 99283

== ENCOUNTER 2022-06-26 14:22 | Emergency (ER) | payer MEDICAID, SELFPAY ==
[2022-06-26 14:26] VITALS: BP 148/83; PULSE 100; RESP 16; TEMP 36.2; O2SAT 96
[2022-06-26 15:17] LABS: Abs Immature Grans 0.06 10^3/uL (0.0-0.06); Absolute Basophil Count 0.05 10^3/uL (0.0-0.2); Absolute Eosinophil Count 0.19 10^3/uL (0.0-0.7); Absolute Lymphocyte Count 2.25 10^3/uL (1.2-3.4); Absolute Monocyte Count 0.56 10^3/uL (0.1-0.8); Absolute Neutrophil Count 6.14 10^3/uL (1.2-6.7); Basophils % 0.5; Eosinophils % 2.1; HCT 45.6 % (40.0-50.0); HGB 15.3 g/dL (13.5-17.5); Immature Grans % 0.6; Lymphocytes % 24.3; MCH 29.3 pg (27.0-33.0); MCHC 33.6 % (32.0-36.0); MCV 87 fL (80-95); MPV 9.1 fL (8.0-11.0); Monocytes % 6.1; Neutrophils % 66.4; Platelet Count 360 10^3/uL (130-400); RBC 5.22 10^6/uL (4.36-5.78); RDW 12.6 % (11.8-14.1); RDW-SD 40.4 fL; WBC 9.25 10^3/uL (4.4-10.8)
--- NOTE | 2022-06-26 15:30 | W.ED.GENAD ---
Discharge Plan Disposition Patient Disposition: Home Discharge Details Clinical Impression: Peripheral edema, Bursitis, prepatellar, left Primary Care Provider: Tai Lopez ED Provider: China Andrea Home Meds and New Rx's Prescriptions: Continued dalfampridine 10 mg tablet extended release 12 hr 10 mg PO Q12H sildenafil [Viagra] 100 mg tablet 100 mg PO DAILY PRN (Reason: sexual activity) Qty: 10 12RF Rx Instructions: administer 30 minutes to 4 hours before activity cholecalciferol (vitamin D3) 5,000 UNIT capsule 10,000 unit PO DAILY multivitamin [Daily Multiple] 1 EACH tablet 1 ea PO DAILY Rituxan 10 MG/1 ML concentrate 10 mg IV q 6 months acetaminophen [Acetaminophen Extra Strength] 500 MG tablet 1,000 mg PO Q8H PRN PRNQty: 60 0RF ibuprofen 600 MG tablet 600 mg PO Q8H PRN PRNQty: 30 1RF Discharge Instructions Additional Instructions: Elevate your leg is much as possible and stay off it is much as possible, we discussed risk benefit of anticoagulation with blood thinner We have decided to hold on anticoagulating at this time, but you return immediately if your symptoms worsen Elevate your leg is much as possible, keep the Rajinder wrap in place, wrap from your ankle up to your knee, ice to the left knee region to help with the bursitis Report for ultrasound on Tuesday, please call first thing in the morning Tylenol as needed for discomfort Return earlier should you have any new or worsening complaints Referrals: Tai Lopez MD [Primary Care Provider] - 1 day Discharge Data Discharge Date/Time-TO BE ENTERED AT DEPARTURE: 06/26/22 16:17 Medical Decision Making Patient is at increased risk for having DVT with recent injury, his D-dimer is only 600 and we discussed risk benefit of anticoagulation and he prefers to hold on anticoagulation at this time He will be scheduled for an ultrasound on Tuesday We will place Rajinder wrap This will allow for compression I suspect patient's swelling and ecchymosis is related to the trauma on his knee and the bursa Patient discharged home in stable condition with stable vitals, return precautions were reviewed in detail and patient expressed understanding HPI General Date/Time Provider Initiated Documentation: 06/26/22 14:32. HPI Narrative: This 46-year-old with history of multiple sclerosis male presents with left knee pain after a fall several days ago, Tuesday. The pain and swelling in his knee was told to be bursitis. He states this is not new. The reason why he presents today is secondary to swelling in his lower leg with rash on left lateral ankle. Denies any fever or chills. Denies any new pain complaints or falls. Denies history of coagulopathy. Denies any known trauma to the ankle. Denies known history of neuropathy. Denies any open wounds related to the fall per patient. Related Data Home Medications Medication Instructions Recorded Confirmed cholecalciferol (vitamin D3) 125 10,000 unit PO DAILY 05/25/16 06/26/22 mcg (5,000 unit) capsule multivitamin (Daily Multiple 1 ea PO DAILY 05/11/17 06/26/22 tablet) acetaminophen 500 mg tablet 1,000 mg PO Q8H PRN PRN #60 tabs 06/23/17 06/26/22 (Acetaminophen Extra Strength) ibuprofen 600 mg tablet 600 mg PO Q8H PRN PRN #30 tabs 06/23/17 06/26/22 rituximab 10 mg/mL 10 mg IV q 6 months 08/15/17 06/26/22 concentrate,intravenous (Rituxan) dalfampridine 10 mg 10 mg PO Q12H 04/07/20 06/26/22 tablet,extended release,12 hr sildenafil 100 mg tablet (Viagra) 100 mg PO DAILY PRN sexual 10/09/21 06/26/22 activity #10 tabs Previous Rx's Medication Instructions Recorded acetaminophen 500 mg tablet 1,000 mg PO Q8H PRN PRN #60 tabs 06/23/17 (Acetaminophen Extra Strength) ibuprofen 600 mg tablet 600 mg PO Q8H PRN PRN #30 tabs 06/23/17 sildenafil 100 mg tablet (Viagra) 100 mg PO DAILY PRN sexual 10/09/21 activity #10 tabs Allergies Allergy/AdvReac Type Severity Reaction Status Date / Time shrimp Allergy hands swell Verified 04/12/22 08:20 General Stated Complaint: GenMedical ZAK: 3 PFSH All Active Problems (Updated 06/26/22 @ 16:03 by LISSETTE Milton) Left knee pain (Acute) Bursitis of left knee (Acute) Acute pain of left foot (Acute) Peripheral edema (Acute) Bursitis, prepatellar, left (Acute) Spastic monoplegia of lower extremity (Acute) Family history of prostate cancer (Acute) Traumatic tear of right rotator cuff (Acute ~02/2022) Wound of skin (Acute) Skin infection (Acute) Lower urinary tract symptoms (LUTS) (Acute) Erectile dysfunction (Chronic) secondary to MS Neurogenic bladder (Chronic) secondary to MS Multiple sclerosis, relapsing-remitting (Acute 05/25/16) Carpal tunnel syndrome of left wrist (Acute) s/p L ECTR DOS: 07/08/2020 Tick bite (Acute) Carpal tunnel syndrome of right wrist (Acute 05/12/17) Right optic neuritis (Acute 05/25/16) Surgical History H/O total cystectomy lower buttocks S/P carpal tunnel release Right endoscopic 06/2017 S/P vasectomy x2 Family History Paternal Grandfather Stroke Paternal Cousin Multiple sclerosis Social History Smoking/Tobacco Use Status: Former Tobacco Use Quit Date: 03/07/13 Smoking risk assessment performed?: Yes Alcohol Intake: current Alcohol type: beer Drug use: Never Substance use type: does not use Household members: spouse and children Housing: house Number of Children: 5 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[employer], [employer] Pets and animals: Yes Current gender identity: male What is your relationship status?: Panel score (0-1 are the most socially isolated patients): 1 Do you feel safe at home: Yes Do you feel safe in your relationship?: Yes Exam Narrative Exam Narrative: Calm, cooperative patient in no acute distress, cardiac rate rhythm regular, repeat 90, lungs clear to auscultation, oxygenation 96%, no tachypnea Bursitis noted, prepatellar to left knee, no tenderness or erythema, no obvious bruising, tumorous edema to left anterior tibialis without any calf pain elicited on exam, left lateral ankle with ecchymosis noted, no crepitus, neurovascularly intact, no tenderness with range of motion of left ankle Course Vital Signs Vital signs: Vital Signs Temperature 36.2 C L 06/26/22 14:26 Pulse 100 H 04/22/23 14:26 Respiratory Rate 16 06/26/22 14:26 Blood Pressure 148/83 H 06/26/22 14:26 Pulse Oximetry 96 06/26/22 14:26 Temperature 36.2 C L 06/26/22 14:26 Pulse 100 H 06/26/22 14:26 Respiratory Rate 16 06/26/22 14:26 Respiratory Effort Normal 06/26/22 15:13 Respiratory Depth Normal 06/26/22 15:13 Respiratory Pattern Normal 06/26/22 15:13 Blood Pressure 148/83 H 06/26/22 14:26 Pulse Oximetry 96 06/26/22 14:26 Oxygen Delivery Method Room Air 06/26/22 14:26 Oxygen Flow Rate 0 06/26/22 14:26 Pain Level 1 06/26/22 14:26 Lab/Test Results Lab/Test Results: Laboratory Tests Range/Units 06/26/22 15:11 WBC (4.4-10.8) 10^3/uL 9.25 RBC (4.36-5.78) 10^6/uL 5.22 Hgb (13.5-17.5) g/dL 15.3 Hct (40.0-50.0) % 45.6 MCV (80-95) fL 87 MCH (27.0-33.0) pg 29.3 MCHC (32.0-36.0) % 33.6 RDW (11.8-14.1) % 12.6 Plt Count (130-400) 10^3/uL 360 MPV (8.0-11.0) fL 9.1 Immature Gran % 0.6 Neutrophils % 66.4 Lymphocytes % 24.3 Monocytes % 6.1 Eosinophils % 2.1 Basophils % 0.5 Nucleated RBC % (0.0-0.3) % 0.0 Absolute Neutrophils (1.2-6.7) 10^3/uL 6.14 Absolute Lymphocytes (1.2-3.4) 10^3/uL 2.25 Absolute Monocytes (0.1-0.8) 10^3/uL 0.56 Absolute Eosinophils (0.0-0.7) 10^3/uL 0.19 Absolute Basophils (0.0-0.2) 10^3/uL 0.05
[2022-06-26 15:37] LABS: ALT 63 U/L (16-63); AST 28 U/L (15-37); Albumin 3.6 g/dL (3.4-5.0); Alkaline Phosphatase 68 U/L (46-116); Anion Gap 6.5 mmol/L (3-11); BUN 20 mg/dL (7-18); Bilirubin, Total 0.5 mg/dL (0.2-1.0); CO2 26.5 mmol/L (21.0-32.0); CREATININE 0.7 mg/dL (0.70-1.30); Calcium 8.9 mg/dL (8.5-10.1); Chloride 104 mmol/L (98-107); Glucose 128 mg/dL (74-106); Potassium 3.7 mmol/L (3.5-5.1); Sodium 137 mmol/L (136-145); Total Protein 6.7 g/dL (6.4-8.2)
[2022-06-26 15:45] LABS: D-Dimer 644 ng/mlFEU (<500)
== END 2022-06-26 16:17 | disposition home or self-care (01) ==
PROVIDERS: Emergency Provider Physician Assistant; PCP Family Medicine
DX: M70.42 Prepatellar bursitis, left knee (principal); R60.0 Localized edema; Z86.718 Personal history of other venous thrombosis and embolism
CPT/HCPCS: 80053; 99282; 85025; 85379; 99283

== ENCOUNTER 2022-06-28 09:22 | Emergency (ER) | payer MEDICAID, SELFPAY ==
[2022-06-28 09:24] VITALS: BP 123/74; PULSE 64; RESP 16; TEMP 36.6; O2SAT 97
--- NOTE | 2022-06-28 09:25 | ED.GENADUL_ITS ---
Discharge Plan Disposition Patient Disposition: Against Medical Advice Discharge Details Clinical Impression: Bursitis of left knee Primary Care Provider: Tai Lopez ED Provider: Armando Almeida Meds and New Rx's Prescriptions: Continued dalfampridine 10 mg tablet extended release 12 hr 10 mg PO Q12H sildenafil [Viagra] 100 mg tablet 100 mg PO DAILY PRN (Reason: sexual activity) Qty: 10 12RF Rx Instructions: administer 30 minutes to 4 hours before activity cholecalciferol (vitamin D3) 5,000 UNIT capsule 10,000 unit PO DAILY multivitamin [Daily Multiple] 1 EACH tablet 1 ea PO DAILY Rituxan 10 MG/1 ML concentrate 10 mg IV q 6 months acetaminophen [Acetaminophen Extra Strength] 500 MG tablet 1,000 mg PO Q8H PRN PRNQty: 60 0RF ibuprofen 600 MG tablet 600 mg PO Q8H PRN PRNQty: 30 1RF Discharge Instructions Instructions: Knee Bursitis (ED) Discharge Data Discharge Date/Time-TO BE ENTERED AT DEPARTURE: 06/28/22 09:44 Discharge Physician: Armando Almeida Medical Decision Making Patient presented for follow-up DVT study for swelling of the left lower extremity and patella. Differential diagnosis enclosed imaging studies for review show disposition the patient agrees he will go home with continuation of Motrin and local measures for his lower extremity swelling. Differential Diagnosis Differential Diagnosis: 1. DVT 2. Isabel's cyst rupture 3. Prepatellar bursitis Medical Records Medical records reviewed: Yes I reviewed the patient's medical records. Imaging Data Radiologic Study: My impression: Patient had a left lower extremity duplex Doppler ultrasound which shows compressibility and no evidence of a deep vein thrombosis as reviewed by me and read by the radiologist Core Measures Measure exclusions: not indicated HPI General Date/Time Provider Initiated Documentation: 06/28/22 09:23 . HPI Narrative: Patient presents emergency department as a follow-up from 2 days ago Tuesday after he injured his left knee causing swelling of the patellar bursa and developed left lower extremity swelling. States that he was to the emergency department for the swelling was concerning. Here in the emergency department he had a D-dimer that was 600 and was offered anticoagulants pending a DVT study today. Patient came today to have the DVT study which was negative for a DVT. States that the swelling has come down significantly over the weekend this continues to take Motrin. Related Data Home Medications Medication Instructions Recorded Confirmed cholecalciferol (vitamin D3) 125 10,000 unit PO DAILY 05/25/16 06/28/22 mcg (5,000 unit) capsule multivitamin (Daily Multiple 1 ea PO DAILY 05/11/17 06/28/22 tablet) acetaminophen 500 mg tablet 1,000 mg PO Q8H PRN PRN #60 tabs 06/23/17 06/28/22 (Acetaminophen Extra Strength) ibuprofen 600 mg tablet 600 mg PO Q8H PRN PRN #30 tabs 06/23/17 06/28/22 rituximab 10 mg/mL 10 mg IV q 6 months 08/15/17 06/28/22 concentrate,intravenous (Rituxan) dalfampridine 10 mg 10 mg PO Q12H 04/07/20 06/28/22 tablet,extended release,12 hr sildenafil 100 mg tablet (Viagra) 100 mg PO DAILY PRN sexual 10/09/21 06/28/22 activity #10 tabs Previous Rx's Medication Instructions Recorded acetaminophen 500 mg tablet 1,000 mg PO Q8H PRN PRN #60 tabs 06/23/17 (Acetaminophen Extra Strength) ibuprofen 600 mg tablet 600 mg PO Q8H PRN PRN #30 tabs 06/23/17 sildenafil 100 mg tablet (Viagra) 100 mg PO DAILY PRN sexual 10/09/21 activity #10 tabs Allergies Allergy/AdvReac Type Severity Reaction Status Date / Time shrimp Allergy hands swell Verified 06/28/22 09:28 General Stated Complaint: Trauma ZAK: 3 Review of Systems All systems reviewed & are unremarkable except as noted in HPI and below Musculoskeletal Musculoskeletal: Reports as per HPI PFSH All Active Problems (Updated 06/28/22 @ 09:43 by Armando Almeida MD) Left knee pain (Acute) Bursitis of left knee (Acute) Acute pain of left foot (Acute) Peripheral edema (Acute) Bursitis, prepatellar, left (Acute) Spastic monoplegia of lower extremity (Acute) Family history of prostate cancer (Acute) Traumatic tear of right rotator cuff (Acute ~02/2022) Wound of skin (Acute) Skin infection (Acute) Lower urinary tract symptoms (LUTS) (Acute) Erectile dysfunction (Chronic) secondary to MS Neurogenic bladder (Chronic) secondary to MS Multiple sclerosis, relapsing-remitting (Acute 05/25/16) Carpal tunnel syndrome of left wrist (Acute) s/p L ECTR DOS: 07/08/2020 Tick bite (Acute) Carpal tunnel syndrome of right wrist (Acute 05/12/17) Right optic neuritis (Acute 05/25/16) Surgical History H/O total cystectomy lower buttocks S/P carpal tunnel release Right endoscopic 06/2017 S/P vasectomy x2 Family History Paternal Grandfather Stroke Paternal Cousin Multiple sclerosis Social History Smoking/Tobacco Use Status: Former Tobacco Use Quit Date: 03/07/13 Smoking risk assessment performed?: Yes Alcohol Intake: current Alcohol type: beer Drug use: Never Substance use type: does not use Household members: spouse and children Housing: house Number of Children: 5 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, [employer] Pets and animals: Yes Current gender identity: male What is your relationship status?: Panel score (0-1 are the most socially isolated patients): 1 Do you feel safe at home: Yes Do you feel safe in your relationship?: Yes Exam Const General: cooperative, healthy appearing and no acute distress HENMT Head: normal to inspection, normocephalic and atraumatic Eyes General: appearance normal, both eyes and all related structures Neck Neck: normal visual inspection, full ROM and no lymphadenopathy Chest Chest: normal inspection of the chest and normal palpation of entire chest wall Resp Effort & Inspection: normal respiratory effort, able to speak in complete sentences and abnormal respiratory pattern Cardio Jugular venous pressure: no JVD Rate: regular rate Rhythm: regular rhythm GI Inspection: normal to inspection Palpation: soft Extrem Left lower extremity: knee Details: swelling Location: of the pre-patellar area and ecchymosis Course Reevaluation(s) Initial Evaluation: Patient presents to have DVT study which was negative and reports that his swelling has decreased significantly
== END 2022-06-28 10:44 | disposition left against medical advice (07) ==
PROVIDERS: Emergency Provider Emergency Medicine Emergency Medical Services; PCP Family Medicine
DX: M70.52 Other bursitis of knee, left knee (principal)

== ENCOUNTER 2022-06-28 11:35 | Outpatient (CLI) | payer MEDICAID, SELFPAY ==
--- NOTE | 2022-06-28 09:20 | DI.US_ITS ---
Exam(s) US LOWER EXTREMITY VENOUS LT EXAM: US LOWER EXTREMITY VENOUS LT CLINICAL HISTORY: SWELLING LLE TECHNIQUE: Left lower extremity venous ultrasound performed using grayscale, color-flow, and spectra l Doppler analysis. COMPARISON: No exams were available for comparison FINDINGS: The left common femoral, femoral and popliteal veins demonstrate normal compressibility, augmentation , and color Doppler. The posterior tibial veins are patent. The saphenofemoral junction is unremarka ble. There is no evidence of a Isabel cyst. There is mild edema in the soft tissues around the ankle and calf. IMPRESSION: 1. No evidence of a left lower extremity DVT. 2. Findings were discussed with the emergency department at 9:51 a.m. on 06/28/2022. DATA REPOSITORY:
== END 2022-06-28 11:55 ==
LOC: DI 11:36
PROVIDERS: PCP Family Medicine; Visit Provider Physician Assistant
DX: M25.562 Pain in left knee (principal); M70.52 Other bursitis of knee, left knee; M79.672 Pain in left foot; R60.9 Edema, unspecified
CPT/HCPCS: 93971

== ENCOUNTER 2022-07-30 01:34 | Outpatient (CLI) | payer MEDICAID, SELFPAY ==
[2022-07-30 14:37] LABS: Vitamin D 25 Total 34.1 ng/mL (30-100)
[2022-08-02 10:46] LABS: IgA 148 mg/dL (85-499); IgG 497 mg/dL (610-1616); IgM 37 mg/dL (35-242)
== END 2022-07-30 01:35 | disposition home or self-care (01) ==
LOC: LBO 01:35
PROVIDERS: PCP Family Medicine; Visit Provider Psychiatry & Neurology Neurology
DX: G35 Multiple sclerosis (principal)
CPT/HCPCS: 36415; 82306; 82784; 88184; 88185

== ENCOUNTER 2022-08-04 04:33 | Outpatient (CLI) | payer MEDICAID, SELFPAY ==
[2022-08-13 09:02] LABS: CD19 <1 % (6-24); CD20 <1 % (6-24)
== END 2022-08-04 04:34 | disposition home or self-care (01) ==
LOC: LBO 04:33
PROVIDERS: PCP Family Medicine; Visit Provider Psychiatry & Neurology Neurology
DX: G35 Multiple sclerosis (principal)
CPT/HCPCS: 36415; 88184; 88185

== ENCOUNTER 2022-08-08 10:50 | Emergency (ER) | payer MEDICAID, SELFPAY ==
[2022-08-08 10:55] VITALS: BP 131/68; PULSE 78; RESP 16; TEMP 36.6; O2SAT 96
--- NOTE | 2022-08-08 11:18 | ED.GENADUL_ITS ---
Discharge Plan Disposition Patient Disposition: Home Condition: Stable Discharge Details Clinical Impression: Cellulitis of right leg Primary Care Provider: Tai Lopez ED Provider: Jung Mandujano Home Meds and New Rx's Prescriptions: New cephalexin 500 mg tablet 500 mg PO QID Qty: 27 0RF sulfamethoxazole-trimethoprim [Bactrim DS] 800-160 mg tablet 1 tab PO BID Qty: 13 0RF Continued dalfampridine 10 mg tablet extended release 12 hr 10 mg PO Q12H sildenafil [Viagra] 100 mg tablet 100 mg PO DAILY PRN (Reason: sexual activity) Qty: 10 12RF Rx Instructions: administer 30 minutes to 4 hours before activity cholecalciferol (vitamin D3) 5,000 UNIT capsule 10,000 unit PO DAILY multivitamin [Daily Multiple] 1 EACH tablet 1 ea PO DAILY Rituxan 10 MG/1 ML concentrate 10 mg IV q 6 months acetaminophen [Acetaminophen Extra Strength] 500 MG tablet 1,000 mg PO Q8H PRN PRNQty: 60 0RF ibuprofen 600 MG tablet 600 mg PO Q8H PRN PRNQty: 30 1RF Discharge Instructions Instructions: Cellulitis (ED) Additional Instructions: Please take full course of both antibiotics as prescribed. Please contact your primary care physician to arrange follow-up. Return to the ER immediately for any worsening or new concerning symptoms. Referrals: Tai Lopez MD [Primary Care Provider] - Medical Decision Making 46-year-old male with history of MS on Rituxan and chronic intermittent infections of his right lower extremity, here with infected wound and associated cellulitis. No signs of systemic illness. Plan to initiate treatment with broad-spectrum antibiotic coverage cephalexin as well as Bactrim. Plan for close outpatient follow-up with PCP. Treatment plan discussed with the patient. Usual customary discharge instructions were reviewed. HPI General Mode of arrival: ambulatory . Date/Time Provider Initiated Documentation: 08/08/22 11:10 . Limitations to Documentation: no limitations . Information obtained by: patient . HPI Narrative: 46-year-old male with history of MS, on Rituxan, chronic intermittent infection of the right lower extremity, here with new infection of the right lower extremity. Patient notes he believes he injured his proximal lower leg last week and has developed increased redness and discharge from wound with associated increased redness of the leg over the past few days. He denies associated fever. Related Data Home Medications Medication Instructions Recorded Confirmed cholecalciferol (vitamin D3) 125 10,000 unit PO DAILY 05/25/16 08/08/22 mcg (5,000 unit) capsule multivitamin (Daily Multiple 1 ea PO DAILY 05/11/17 08/08/22 tablet) acetaminophen 500 mg tablet 1,000 mg PO Q8H PRN PRN #60 tabs 06/23/17 08/08/22 (Acetaminophen Extra Strength) ibuprofen 600 mg tablet 600 mg PO Q8H PRN PRN #30 tabs 06/23/17 08/08/22 rituximab 10 mg/mL 10 mg IV q 6 months 08/15/17 08/08/22 concentrate,intravenous (Rituxan) dalfampridine 10 mg 10 mg PO Q12H 04/07/20 08/08/22 tablet,extended release,12 hr sildenafil 100 mg tablet (Viagra) 100 mg PO DAILY PRN sexual 10/09/21 08/08/22 activity #10 tabs cephalexin 500 mg tablet 500 mg PO QID #27 tabs 08/08/22 sulfamethoxazole 800 1 tab PO BID #13 tabs 08/08/22 mg-trimethoprim 160 mg tablet (Bactrim DS) Previous Rx's Medication Instructions Recorded acetaminophen 500 mg tablet 1,000 mg PO Q8H PRN PRN #60 tabs 06/23/17 (Acetaminophen Extra Strength) ibuprofen 600 mg tablet 600 mg PO Q8H PRN PRN #30 tabs 06/23/17 sildenafil 100 mg tablet (Viagra) 100 mg PO DAILY PRN sexual 10/09/21 activity #10 tabs cephalexin 500 mg tablet 500 mg PO QID #27 tabs 08/08/22 sulfamethoxazole 800 1 tab PO BID #13 tabs 08/08/22 mg-trimethoprim 160 mg tablet (Bactrim DS) Allergies Allergy/AdvReac Type Severity Reaction Status Date / Time shrimp Allergy hands swell Verified 08/08/22 10:57 General Stated Complaint: Cellulitis ZAK: 4 Review of Systems Musculoskeletal Musculoskeletal: Reports as per HPI Integumentary/Breasts Skin/Breast: Reports as per HPI PFSH All Active Problems Cellulitis of right leg (Acute) Spastic monoplegia of lower extremity (Acute) Family history of prostate cancer (Acute) Traumatic tear of right rotator cuff (Acute ~02/2022) Wound of skin (Acute) Skin infection (Acute) Lower urinary tract symptoms (LUTS) (Acute) Erectile dysfunction (Chronic) secondary to MS Neurogenic bladder (Chronic) secondary to MS Multiple sclerosis, relapsing-remitting (Acute 05/25/16) Carpal tunnel syndrome of left wrist (Acute) s/p L ECTR DOS: 07/08/2020 Tick bite (Acute) Carpal tunnel syndrome of right wrist (Acute 05/12/17) Right optic neuritis (Acute 05/25/16) Surgical History H/O total cystectomy lower buttocks S/P carpal tunnel release Right endoscopic 06/2017 S/P vasectomy x2 Family History Paternal Grandfather Stroke Paternal Cousin Multiple sclerosis Social History Smoking/Tobacco Use Status: Former Tobacco Use Quit Date: 03/07/13 Smoking risk assessment performed?: Yes Alcohol Intake: current Alcohol Intake frequency: holidays/special occasions only Alcohol type: beer Drug use: Never Substance use type: does not use Household members: spouse and children Housing: house Number of Children: 5 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, [employer] Pets and animals: Yes Current gender identity: male What is your relationship status?: Panel score (0-1 are the most socially isolated patients): 1 Do you feel safe at home: Yes Do you feel safe in your relationship?: Yes Exam Extrem Left lower extremity: lower leg Details: erythema (Surrounding area of superficial wound with yellow discharge, erythema extends up the medial leg to just proximal to the knee); no tenderness and no crepitus Course Vital Signs Vital signs: Vital Signs Temperature 36.6 C 08/08/22 10:55 Pulse 78 08/08/22 10:55 Respiratory Rate 16 08/08/22 10:55 Blood Pressure 131/68 08/08/22 10:55 Pulse Oximetry 96 08/08/22 10:55 Temperature 36.6 C 08/08/22 10:55 Temperature Source Oral 08/08/22 10:55 Pulse 78 08/08/22 10:55 Respiratory Rate 16 08/08/22 10:55 Respiratory Effort Normal, Non-Labored 08/08/22 10:58 Blood Pressure 131/68 08/08/22 10:55 Blood Pressure Position Sitting 08/08/22 10:55 Pulse Oximetry 96 08/08/22 10:55 Oxygen Delivery Method Room Air 08/08/22 10:55 Oxygen Flow Rate 0 08/08/22 10:55 Pain Level 0 08/08/22 10:55 PAWSS Have you Been Recently Intoxicated or Drunk Within the Last 30 days?: No Have you Ever Experienced Previous Episodes of Alcohol Withdrawal?: No Have you ever Experienced Withdrawal Seizures?: No Have you ever Experienced Delirium Tremens(DT)s?: No Have you ever undergone Alcohol Rehabilitation Treatment (i.e, inpt ot outpatient treatment programs)?: No Have you ever Experienced Blackouts?: No Have you ever Combined Alcohol with other Downers within the last 90 days?: No Have you ever Combined Alcohol with any other Substance of Abuse during the last 90 days?: No Positive Blood Alcohol level on Presentation? [PCS.BAL]: No Evidence of Increased Autonomic Activity (i.e. HR>120, tremor, sweating, agitation, nausea)?: No Result: 0
[2022-08-08] MEDS: Sulfameth/Trimeth DS TAB 1 TAB PO (11:33)
[2022-08-08] MEDS: Cephalexin 500 MG CAP PO (11:33)
== END 2022-08-08 12:07 | disposition home or self-care (01) ==
PROVIDERS: Emergency Provider Student in an Organized Health Care Education/Training Program; PCP Family Medicine
DX: L03.115 Cellulitis of right lower limb (principal)
CPT/HCPCS: 99283; 99284

== ENCOUNTER 2022-08-23 08:04 | Outpatient (CLI) | payer MEDICAID, SELFPAY ==
[2022-08-23 12:43] LABS: Calculated LDL 104 mg/dL (<100); Cholesterol 160 mg/dL (<200); HDL Cholesterol 43 mg/dL (40-60); Triglyceride 68 mg/dL (<150)
== END 2022-08-23 08:05 | disposition home or self-care (01) ==
LOC: LOS 08:04
PROVIDERS: PCP Family Medicine; Referring Provider Family Medicine; Visit Provider Family Medicine
DX: E78.5 Hyperlipidemia, unspecified (principal)
CPT/HCPCS: 36415; 80061

== ENCOUNTER 2022-09-20 08:59 | Emergency (ER) | payer MEDICAID, SELFPAY ==
[2022-09-20 09:04] VITALS: BP 134/67; PULSE 85; RESP 20; O2SAT 99
--- NOTE | 2022-09-20 09:23 | ED.GENADUL_ITS ---
Discharge Plan Disposition Patient Disposition: Home Condition: Good Discharge Details Clinical Impression: Cellulitis of anterior lower leg Primary Care Provider: Tai Lopez ED Provider: Shana Treviño Home Meds and New Rx's Prescriptions: New cephalexin 500 mg tablet 500 mg PO QID 7 Days Qty: 28 0RF sulfamethoxazole-trimethoprim [Bactrim DS] 800-160 mg tablet 1 tab PO BID 5 Days Qty: 10 0RF Continued dalfampridine 10 mg tablet extended release 12 hr 10 mg PO Q12H sildenafil [Viagra] 100 mg tablet 100 mg PO DAILY PRN (Reason: sexual activity) Qty: 10 12RF Rx Instructions: administer 30 minutes to 4 hours before activity cholecalciferol (vitamin D3) 5,000 UNIT capsule 10,000 unit PO DAILY multivitamin [Daily Multiple] 1 EACH tablet 1 ea PO DAILY Rituxan 10 MG/1 ML concentrate 10 mg IV q 6 months acetaminophen [Acetaminophen Extra Strength] 500 MG tablet 1,000 mg PO Q8H PRN PRNQty: 60 0RF ibuprofen 600 MG tablet 600 mg PO Q8H PRN PRNQty: 30 1RF Discharge Instructions Instructions: Cellulitis (ED) Additional Instructions: Your leg exam is concerning for recurrent cellulitis. Please try to keep this area protected. Wash with running water and soap, and reapply bandage to prevent your brace from rubbing on this. Alternatively, if you find the bandage is bothersome you may apply a wrap over this to help protect the skin. Please take the antibiotics as prescribed. Encourage elevation of the extremity. Please monitor for worsening infection such as fever/chills, spreading of the redness, increased pain or other new/worsening symptoms. if any of these symptoms arise, please seek care urgently once again. Otherwise, please follow- up with primary care in 1 week for reevaluation. Referrals: Tai Lopez MD [Primary Care Provider] - Medical Decision Making Patient is a pleasant 46-year-old male with past medical history significant for MS, immunocompromise, presenting with chief complaint of cellulitis to the right lower extremity. Patient reports that he has had this historically. Was last treated over a month ago. He states that the wounds that healed up quite well but then a few days ago he was moving some wire when he scraped his leg. He wears a brace near this area and this area can rub against the wounds. Wears this for right sided foot drop associated with his MS. Denies any fevers or chills. States that he is systemically feeling well. On exam, patient appears nontoxic. He is resting comfortably. Hemodynamically stable. Afebrile. He has two areas of erythema on the anterior right lower extremity. Inferior more area is more injected and tender. Square lesion which would correlate with his brace for his foot drop. Open area centrally but no active drainage, no fluctance. Concerned for recurrent cellulitis from recurrent superficial trauma but no evidene of deep space infection or abscess. Patient has had good kidney function historically. Will treat again with Bactrim and Keflex, he reports the best success with this combo. Encouraged RICE. Encouraged f/u with PCP in 1 wk for reevaluation. Return precautions discussed. All of his questions and concerns were addressed, he is in agreement with this plan. HPI General Date/Time Provider Initiated Documentation: 09/20/22 09:03 . Limitations to Documentation: no limitations . Information obtained by: patient, RN notes reviewed and old records reviewed . History of Present Illness 46 year old M presents to the emergency department with the chief complaint of right lower extremity cellulitis, described as mild and similar to prior episodes, Quality is described as aching, and is localized to the lower extremity. Patient reports no radiation. Patient started experiencing this day(s) and it has been constant. No relieving factors improve symptom(s), No exacerbating factors reported . Patient notes no other symptoms.. Patient did receive the following treatments prior to arrival, none Related Data Home Medications Medication Instructions Recorded Confirmed cholecalciferol (vitamin D3) 125 10,000 unit PO DAILY 05/25/16 09/20/22 mcg (5,000 unit) capsule multivitamin (Daily Multiple 1 ea PO DAILY 05/11/17 09/20/22 tablet) acetaminophen 500 mg tablet 1,000 mg PO Q8H PRN PRN #60 tabs 06/23/17 09/20/22 (Acetaminophen Extra Strength) ibuprofen 600 mg tablet 600 mg PO Q8H PRN PRN #30 tabs 06/23/17 09/20/22 rituximab 10 mg/mL 10 mg IV q 6 months 08/15/17 09/20/22 concentrate,intravenous (Rituxan) dalfampridine 10 mg 10 mg PO Q12H 04/07/20 09/20/22 tablet,extended release,12 hr sildenafil 100 mg tablet (Viagra) 100 mg PO DAILY PRN sexual 10/09/21 09/20/22 activity #10 tabs cephalexin 500 mg tablet 500 mg PO QID 7 days #28 tabs 09/20/22 sulfamethoxazole 800 1 tab PO BID 5 days #10 tabs 09/20/22 mg-trimethoprim 160 mg tablet (Bactrim DS) Previous Rx's Medication Instructions Recorded acetaminophen 500 mg tablet 1,000 mg PO Q8H PRN PRN #60 tabs 06/23/17 (Acetaminophen Extra Strength) ibuprofen 600 mg tablet 600 mg PO Q8H PRN PRN #30 tabs 06/23/17 sildenafil 100 mg tablet (Viagra) 100 mg PO DAILY PRN sexual 10/09/21 activity #10 tabs cephalexin 500 mg tablet 500 mg PO QID 7 days #28 tabs 09/20/22 sulfamethoxazole 800 1 tab PO BID 5 days #10 tabs 09/20/22 mg-trimethoprim 160 mg tablet (Bactrim DS) Allergies Allergy/AdvReac Type Severity Reaction Status Date / Time shrimp Allergy hands swell Verified 08/16/22 08:40 General Stated Complaint: Cellulitis ZAK: 3 Review of Systems Constitutional Constitutional: Reports as per HPI, Denies chills and Denies fever(s) Musculoskeletal Musculoskeletal: Reports as per HPI Integumentary/Breasts Skin/Breast: Reports as per HPI Neurologic Neurologic: Reports as per HPI PFSH All Active Problems (Updated 09/20/22 @ 09:28 by LISSETTE Echeverria) Cellulitis of anterior lower leg (Acute) Obesity (Chronic) Hyperglycemia (Acute) Spastic monoplegia of lower extremity (Acute) Family history of prostate cancer (Acute) Traumatic tear of right rotator cuff (Acute ~02/2022) Wound of skin (Acute) Skin infection (Acute) Lower urinary tract symptoms (LUTS) (Acute) Erectile dysfunction (Chronic) secondary to MS Neurogenic bladder (Chronic) secondary to MS Multiple sclerosis, relapsing-remitting (Acute 05/25/16) Carpal tunnel syndrome of left wrist (Acute) s/p L ECTR DOS: 07/08/2020 Tick bite (Acute) Carpal tunnel syndrome of right wrist (Acute 05/12/17) Right optic neuritis (Acute 05/25/16) Surgical History H/O total cystectomy lower buttocks S/P carpal tunnel release Right endoscopic 06/2017 S/P vasectomy x2 Family History Paternal Grandfather Stroke Paternal Cousin Multiple sclerosis Social History Smoking/Tobacco Use Status: Former Tobacco Use Quit Date: 03/07/13 Smoking risk assessment performed?: Yes Alcohol Intake: current Alcohol Intake frequency: holidays/special occasions only Alcohol type: beer Drug use: Never Substance use type: does not use Household members: spouse and children Housing: house Number of Children: 5 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, [employer] Pets and animals: Yes Current gender identity: male What is your relationship status?: Panel score (0-1 are the most socially isolated patients): 1 Do you feel safe at home: Yes Do you feel safe in your relationship?: Yes Exam Const General: cooperative, healthy appearing, comfortable, no acute distress and well developed Nutritional Appearance: well nourished and overweight Orientation: alert and awake Resp Effort & Inspection: normal respiratory effort, able to speak in complete sentences and no respiratory distress Cardio Rate: regular rate Rhythm: regular rhythm Skin General skin exam: erythema and induration Neuro General: patient alert and patient awake Cognition: normal cognition Speech: speech normal Gait: normal gait Sensory Exam: no sensory deficits noted Extrem Upper/lower leg/hip images: 1. 2. 2 areas of erythema. Inferior are is more indurated and tender. Open area centrally, no fluctuance or active discharge. Does not spread outward from this area. Calf is soft and nontender. Does not involve the joint Psych Appearance: grossly normal and well kempt Mental Status: mental status grossly normal Speech and Movement: speech and movement normal Course Vital Signs Vital signs: Vital Signs Pulse 85 09/20/22 09:04 Respiratory Rate 20 09/20/22 09:04 Blood Pressure 134/67 09/20/22 09:04 Pulse Oximetry 99 09/20/22 09:04 Temperature Source Oral 09/20/22 09:04 Pulse 85 09/20/22 09:04 Respiratory Rate 20 09/20/22 09:04 Respiratory Effort Normal, Non-Labored 09/20/22 09:08 Blood Pressure 134/67 09/20/22 09:04 Blood Pressure Position Sitting 09/20/22 09:04 Pulse Oximetry 99 09/20/22 09:04 Oxygen Delivery Method Room Air 09/20/22 09:04 Oxygen Flow Rate 0 09/20/22 09:04 Pain Level 0 09/20/22 09:04
[2022-09-20 09:42] VITALS: BP 132/78; PULSE 75; RESP 20; TEMP 37.2; O2SAT 99
== END 2022-09-20 09:49 | disposition home or self-care (01) ==
PROVIDERS: Emergency Provider Physician Assistant; PCP Family Medicine
DX: L03.115 Cellulitis of right lower limb (principal)
CPT/HCPCS: 99283; 99284

== ENCOUNTER 2022-10-05 09:05 | Emergency (ER) | payer MEDICAID, SELFPAY ==
[2022-10-05 09:10] VITALS: BP 137/73; PULSE 79; RESP 20; TEMP 36.1; O2SAT 98
--- NOTE | 2022-10-05 09:35 | ED.GENADUL_ITS ---
Discharge Plan Disposition Patient Disposition: Home Condition: Stable Discharge Details Clinical Impression: Cellulitis of right anterior lower leg, Recurrent infection of skin Primary Care Provider: Tai Lopez ED Provider: Jung Mandujano Home Meds and New Rx's Prescriptions: New cephalexin 500 mg capsule 500 mg PO QID Qty: 39 0RF sulfamethoxazole-trimethoprim [Bactrim DS] 800-160 mg tablet 1 tab PO BID Qty: 13 0RF Continued dalfampridine 10 mg tablet extended release 12 hr 10 mg PO Q12H sildenafil [Viagra] 100 mg tablet 100 mg PO DAILY PRN (Reason: sexual activity) Qty: 10 12RF Rx Instructions: administer 30 minutes to 4 hours before activity cholecalciferol (vitamin D3) 5,000 UNIT capsule 10,000 unit PO DAILY multivitamin [Daily Multiple] 1 EACH tablet 1 ea PO DAILY Rituxan 10 MG/1 ML concentrate 10 mg IV q 6 months Patient Comments: last dose December 2021 acetaminophen [Acetaminophen Extra Strength] 500 MG tablet 1,000 mg PO Q8H PRN PRNQty: 60 0RF ibuprofen 600 MG tablet 600 mg PO Q8H PRN PRNQty: 30 1RF Discontinued triamcinolone acetonide 0.1 % cream 1 applic topical BID PRN (Reason: leg rash) Qty: 30 1RF Discharge Instructions Instructions: Cellulitis (ED) Additional Instructions: Please take full course of antibiotic as prescribed. Please contact your primary care physician to arrange follow-up. Call today to arrange followup for wound check at the end of this week or early next week Return to the ER immediately for any worsening or new concerning symptoms. Referrals: Tai Lopez MD [Primary Care Provider] - Discharge Data Discharge Date/Time-TO BE ENTERED AT DEPARTURE: 10/05/22 10:08 Medical Decision Making 47-year-old male with history of MS, on Rituxan, chronic wound right lower extremity with intermittent recurrent cellulitis, here with inflammation s urrounding wound over the past couple days concerning for recurrent cellulitis. Patient was here on 09/20/2022 for similar, treated with course of Bactrim and cephalexin and had complete resolution of erythema. He was seen by his PCP in follow-up and started on steroid cream for recurrent skin irritation in the area. Plan to treat again with cephalexin and Bactrim with extended treatment course. I have recommended he stop using the steroid cream. Patient should follow-up with his PCP within the next 1 week for reassessment. He may benefit from referral to avionics systems integration specialist for chronic ongoing treatment of his wound. HPI General Mode of arrival: ambulatory . Date/Time Provider Initiated Documentation: 10/05/22 09:20 . Limitations to Documentation: no limitations . Information obtained by: patient . HPI Narrative: 47-year-old male with a history of MS, on Rituxan, chronic wound right lower extremity with recurrent cellulitis, here with worsening redness and swelling of the anterior right lower leg over the past couple days, concern for recurrent infection. He has no associated fever. No other abnormal symptoms. Related Data Home Medications Medication Instructions Recorded Confirmed cholecalciferol (vitamin D3) 125 10,000 unit PO DAILY 05/25/16 10/05/22 mcg (5,000 unit) capsule multivitamin (Daily Multiple 1 ea PO DAILY 05/11/17 10/05/22 tablet) acetaminophen 500 mg tablet 1,000 mg PO Q8H PRN PRN #60 tabs 06/23/17 10/05/22 (Acetaminophen Extra Strength) ibuprofen 600 mg tablet 600 mg PO Q8H PRN PRN #30 tabs 06/23/17 10/05/22 rituximab 10 mg/mL 10 mg IV q 6 months 08/15/17 10/05/22 concentrate,intravenous (Rituxan) dalfampridine 10 mg 10 mg PO Q12H 04/07/20 10/05/22 tablet,extended release,12 hr sildenafil 100 mg tablet (Viagra) 100 mg PO DAILY PRN sexual 10/09/21 10/05/22 activity #10 tabs cephalexin 500 mg capsule 500 mg PO QID #39 caps 10/05/22 sulfamethoxazole 800 1 tab PO BID #13 tabs 10/05/22 mg-trimethoprim 160 mg tablet (Bactrim DS) Previous Rx's Medication Instructions Recorded acetaminophen 500 mg tablet 1,000 mg PO Q8H PRN PRN #60 tabs 06/23/17 (Acetaminophen Extra Strength) ibuprofen 600 mg tablet 600 mg PO Q8H PRN PRN #30 tabs 06/23/17 sildenafil 100 mg tablet (Viagra) 100 mg PO DAILY PRN sexual 10/09/21 activity #10 tabs cephalexin 500 mg capsule 500 mg PO QID #39 caps 10/05/22 sulfamethoxazole 800 1 tab PO BID #13 tabs 10/05/22 mg-trimethoprim 160 mg tablet (Bactrim DS) Allergies Allergy/AdvReac Type Severity Reaction Status Date / Time shrimp Allergy hands swell Verified 10/05/22 09:14 General Stated Complaint: Cellulitis ZAK: 4 PFSH All Active Problems Cellulitis of right anterior lower leg (Acute) Recurrent infection of skin (Acute) Rash (Acute) Cellulitis of anterior lower leg (Acute) Obesity (Chronic) Hyperglycemia (Acute) Spastic monoplegia of lower extremity (Acute) Family history of prostate cancer (Acute) Traumatic tear of right rotator cuff (Acute ~02/2022) Wound of skin (Acute) Skin infection (Acute) Lower urinary tract symptoms (LUTS) (Acute) Erectile dysfunction (Chronic) secondary to MS Neurogenic bladder (Chronic) secondary to MS Multiple sclerosis, relapsing-remitting (Acute 05/25/16) Carpal tunnel syndrome of left wrist (Acute) s/p L ECTR DOS: 07/08/2020 Tick bite (Acute) Carpal tunnel syndrome of right wrist (Acute 05/12/17) Right optic neuritis (Acute 05/25/16) Surgical History H/O total cystectomy lower buttocks S/P carpal tunnel release Right endoscopic 06/2017 S/P vasectomy x2 Family History Paternal Grandfather Stroke Paternal Cousin Multiple sclerosis Social History Smoking/Tobacco Use Status: Former Tobacco Use Quit Date: 03/07/13 Smoking risk assessment performed?: Yes Alcohol Intake: current Alcohol Intake frequency: holidays/special occasions only Alcohol type: beer Drug use: Never Substance use type: does not use Household members: spouse and children Housing: house Number of Children: 5 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, [employer] Pets and animals: Yes Current gender identity: male What is your relationship status?: Panel score (0-1 are the most socially isolated patients): 1 Do you feel safe at home: Yes Do you feel safe in your relationship?: Yes Exam Const General: cooperative and no acute distress Cardio Rate: regular rate and not tachycardic Rhythm: regular rhythm GI Palpation: soft, not firm, no guarding, no masses, not rigid and nontender Skin Rashes: rashes noted Other: Shallow ulcer, weeping anterior right lower leg with surrounding erythema extending anterior and medially up to just proximal to the knee Neuro General: patient alert, patient awake and tone normal Extrem General: no calf tenderness and edema Laterality: right (trace) Course Vital Signs Vital signs: Vital Signs Temperature 36.1 C L 10/05/22 09:10 Pulse 79 10/05/22 09:10 Respiratory Rate 20 10/05/22 09:10 Blood Pressure 137/73 10/05/22 09:10 Pulse Oximetry 98 10/05/22 09:10 Temperature 36.1 C L 10/05/22 09:10 Temperature Source Tympanic 10/05/22 09:10 Pulse 79 10/05/22 09:10 Respiratory Rate 20 10/05/22 09:10 Respiratory Effort Normal, Non-Labored 10/05/22 09:23 Blood Pressure 137/73 10/05/22 09:10 Blood Pressure Position Sitting 10/05/22 09:10 Pulse Oximetry 98 10/05/22 09:10 Oxygen Delivery Method Room Air 10/05/22 09:10 Oxygen Flow Rate 0 10/05/22 09:10 Pain Level 1 10/05/22 09:10
[2022-10-05 10:07] VITALS: BP 137/73; PULSE 79; RESP 20; TEMP 36.1; O2SAT 98
[2022-10-05] MEDS: Sulfameth/Trimeth DS TAB 1 TAB PO (10:07)
[2022-10-05] MEDS: Cephalexin 500 MG CAP PO (10:07)
== END 2022-10-05 10:08 | disposition home or self-care (01) ==
PROVIDERS: Emergency Provider Student in an Organized Health Care Education/Training Program; PCP Family Medicine
DX: L03.115 Cellulitis of right lower limb (principal); G35 Multiple sclerosis; Z79.899 Other long term (current) drug therapy; Z87.891 Personal history of nicotine dependence
CPT/HCPCS: 82962; 99283

== ENCOUNTER 2022-10-14 02:48 | Outpatient (CLI) | payer MEDICAID, SELFPAY ==
[2022-10-14 22:53] LABS: PSA, Diagnostic 2.2 ng/mL (<=2.5)
[2022-10-15 12:47] LABS: IgA 154 mg/dL (85-499); IgG 493 mg/dL (610-1616)
[2022-10-15 16:11] LABS: CD19 <1 % (6-24); CD20 <1 % (6-24)
== END 2022-10-14 02:49 | disposition home or self-care (01) ==
PROVIDERS: Psychiatry & Neurology Neurology; PCP Family Medicine; Visit Provider Urology
DX: G35 Multiple sclerosis (principal); R39.9 Unspecified symptoms and signs involving the genitourinary system; Z80.42 Family history of malignant neoplasm of prostate
CPT/HCPCS: 36415; 82784; 88184; 88185; 84153

== ENCOUNTER 2022-10-15 16:48 | Emergency (ER) | payer MEDICAID, SELFPAY ==
[2022-10-15 17:10] VITALS: BP 131/70; PULSE 73; RESP 20; TEMP 37.2; O2SAT 98
--- NOTE | 2022-10-15 17:19 | W.ED.GENAD ---
Discharge Plan Disposition Patient Disposition: Home Condition: Stable Discharge Details Clinical Impression: Cellulitis of right lower extremity Primary Care Provider: Tai Lopez ED Provider: Shiela Mcguire [place] Meds and New Rx's Prescriptions: New levofloxacin 750 mg tablet 750 mg PO DAILY Qty: 7 0RF Continued dalfampridine 10 mg tablet extended release 12 hr 10 mg PO Q12H sildenafil [Viagra] 100 mg tablet 100 mg PO DAILY PRN (Reason: sexual activity) Qty: 10 12RF Rx Instructions: administer 30 minutes to 4 hours before activity cholecalciferol (vitamin D3) 5,000 UNIT capsule 10,000 unit PO DAILY multivitamin [Daily Multiple] 1 EACH tablet 1 ea PO DAILY Rituxan 10 MG/1 ML concentrate 10 mg IV q 6 months Patient Comments: last dose December 2021 acetaminophen [Acetaminophen Extra Strength] 500 MG tablet 1,000 mg PO Q8H PRN PRNQty: 60 0RF ibuprofen 600 MG tablet 600 mg PO Q8H PRN PRNQty: 30 1RF Discontinued cephalexin 500 mg capsule 500 mg PO QID Qty: 39 0RF Patient Comments: rx finished sulfamethoxazole-trimethoprim [Bactrim DS] 800-160 mg tablet 1 tab PO BID Qty: 13 0RF Patient Comments: rx finished Discharge Instructions Instructions: Cellulitis (ED) Additional Instructions: Continue to elevate lower extremity is much as possible throughout the day Start Levaquin daily today. Return for new or worsening symptoms or keep your appointment with wound care on Tuesday Referrals: Tai Lopez MD [Primary Care Provider] - Discharge Data Discharge Date/Time-TO BE ENTERED AT DEPARTURE: 10/15/22 17:31 Medical Decision Making Discussed admission versus outpatient extension of oral antibiotics. Using shared decision making he opts to have oral antibiotics extended so he can make his wound care appointment on Tuesday. Hemodynamically he is stable again no sign of systemic infection reasonable to continue orals outpatient at this point he was advised to return sooner for new or worsening symptoms HPI General Mode of arrival: ambulatory. Date/Time Provider Initiated Documentation: 10/15/22 17:14. Limitations to Documentation: no limitations. Information obtained by: patient. HPI Narrative: 47-year-old male patient with ongoing cellulitis of his right lower extremity no improvement after 2 rounds of antibiotics which completed today he completed 7 days Bactrim 10 days Keflex. He had no fevers or symptoms of systemic infection. He is scheduled to see wound care on Tuesday. Related Data Home Medications Medication Instructions Recorded Confirmed cholecalciferol (vitamin D3) 125 10,000 unit PO DAILY 05/25/16 10/15/22 mcg (5,000 unit) capsule multivitamin (Daily Multiple 1 ea PO DAILY 05/11/17 10/15/22 tablet) acetaminophen 500 mg tablet 1,000 mg PO Q8H PRN PRN #60 tabs 06/23/17 10/15/22 (Acetaminophen Extra Strength) ibuprofen 600 mg tablet 600 mg PO Q8H PRN PRN #30 tabs 06/23/17 10/15/22 rituximab 10 mg/mL 10 mg IV q 6 months 08/15/17 10/15/22 concentrate,intravenous (Rituxan) dalfampridine 10 mg 10 mg PO Q12H 04/07/20 10/15/22 tablet,extended release,12 hr sildenafil 100 mg tablet (Viagra) 100 mg PO DAILY PRN sexual 10/09/21 10/15/22 activity #10 tabs levofloxacin 750 mg tablet 750 mg PO DAILY #7 tabs 10/15/22 Previous Rx's Medication Instructions Recorded acetaminophen 500 mg tablet 1,000 mg PO Q8H PRN PRN #60 tabs 06/23/17 (Acetaminophen Extra Strength) ibuprofen 600 mg tablet 600 mg PO Q8H PRN PRN #30 tabs 06/23/17 sildenafil 100 mg tablet (Viagra) 100 mg PO DAILY PRN sexual 10/09/21 activity #10 tabs levofloxacin 750 mg tablet 750 mg PO DAILY #7 tabs 10/15/22 Allergies Allergy/AdvReac Type Severity Reaction Status Date / Time shrimp Allergy hands swell Verified 10/15/22 17:13 General Stated Complaint: Recheck ZAK: 4 PFSH All Active Problems (Updated 10/15/22 @ 17:21 by Shiela Mcguire NP) Cellulitis of right anterior lower leg (Acute) Recurrent infection of skin (Acute) Cellulitis of right lower extremity (Acute) Rash (Acute) Cellulitis of anterior lower leg (Acute) Obesity (Chronic) Hyperglycemia (Acute) Spastic monoplegia of lower extremity (Acute) Family history of prostate cancer (Acute) Traumatic tear of right rotator cuff (Acute ~02/2022) Wound of skin (Acute) Skin infection (Acute) Lower urinary tract symptoms (LUTS) (Acute) Erectile dysfunction (Chronic) secondary to MS Neurogenic bladder (Chronic) secondary to MS Multiple sclerosis, relapsing-remitting (Acute 05/25/16) Carpal tunnel syndrome of left wrist (Acute) s/p L ECTR DOS: 07/08/2020 Tick bite (Acute) Carpal tunnel syndrome of right wrist (Acute 05/12/17) Right optic neuritis (Acute 05/25/16) Surgical History H/O total cystectomy lower buttocks S/P carpal tunnel release Right endoscopic 06/2017 S/P vasectomy x2 Family History Paternal Grandfather Stroke Paternal Cousin Multiple sclerosis Social History Smoking/Tobacco Use Status: Former Tobacco Use Quit Date: 03/07/13 Smoking risk assessment performed?: Yes Alcohol Intake: current Alcohol Intake frequency: holidays/special occasions only Alcohol type: beer Drug use: Never Substance use type: does not use Household members: spouse and children Housing: house Number of Children: 5 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, [employer] Pets and animals: Yes Current gender identity: male What is your relationship status?: Panel score (0-1 are the most socially isolated patients): 1 Do you feel safe at home: Yes Do you feel safe in your relationship?: Yes Exam Const General: cooperative, comfortable and no acute distress Nutritional Appearance: obese Orientation: alert, awake and oriented x3 HENMT Head: normal to inspection, normocephalic and atraumatic Mouth: oral mucosae normal Chest Chest: normal inspection of the chest Resp Effort & Inspection: normal respiratory effort Skin Rashes: rashes noted (right shankar) Course Vital Signs Vital signs: Vital Signs Temperature 37.2 C 10/15/22 17:10 Pulse 73 10/15/22 17:10 Respiratory Rate 20 10/15/22 17:10 Blood Pressure 131/70 10/15/22 17:10 Pulse Oximetry 98 10/15/22 17:10 Temperature 37.2 C 10/15/22 17:10 Temperature Source Skin 10/15/22 17:10 Pulse 73 10/15/22 17:10 Respiratory Rate 20 10/15/22 17:10 Blood Pressure 131/70 10/15/22 17:10 Blood Pressure Position Sitting 10/15/22 17:10 Pulse Oximetry 98 10/15/22 17:10 Oxygen Delivery Method Room Air 10/15/22 17:10 Oxygen Flow Rate 0 10/15/22 17:10 Pain Level 3 10/15/22 17:10
== END 2022-10-15 17:31 | disposition home or self-care (01) ==
PROVIDERS: Emergency Provider Nurse Practitioner Acute Care; PCP Family Medicine
DX: L03.115 Cellulitis of right lower limb (principal); G35 Multiple sclerosis; Z87.891 Personal history of nicotine dependence
CPT/HCPCS: 99282

== ENCOUNTER 2022-12-29 03:13 | Outpatient (RCR) | payer MEDICAID, SELFPAY ==
[2022-12-17] MEDS: Normal Saline Flush 10 ML SYR IVP (09:39)
[2022-12-19] MEDS: Normal Saline Flush 10 ML SYR IVP (13:07)
[2022-12-29] VITALS (7 sets, daily range): BP systolic 107–114; BP diastolic 66–74; PULSE 58–75; RESP 16–18; TEMP 36.6–37; O2SAT 95–97
[2022-12-29] MEDS: Acetaminophen 325 MG TAB 650 MG PO (07:35)
[2022-12-29] MEDS: diphenhydrAMINE 50 MG/ML VIAL IVP (07:50)
[2022-12-29] MEDS: Dexamethasone 10 MG/ML VIAL IVP (07:54)
[2022-12-29] MEDS: riTUXimab-PVVR 500 MG in Normal Saline 200 ML 62.5 MG IVPB (08:05)
[2022-12-29] MEDS: Normal Saline Flush 10 ML SYR IVP (08:30)
[2022-12-29 08:39] LABS: Abs Immature Grans 0.06 10^3/uL (0.0-0.06); Absolute Basophil Count 0.03 10^3/uL (0.0-0.2); Absolute Eosinophil Count 0.15 10^3/uL (0.0-0.7); Absolute Lymphocyte Count 1.66 10^3/uL (1.2-3.4); Absolute Monocyte Count 0.62 10^3/uL (0.1-0.8); Absolute Neutrophil Count 5.15 10^3/uL (1.2-6.7); Basophils % 0.4; HGB 14.7 g/dL (13.5-17.5); Immature Grans % 0.8; Lymphocytes % 21.6; MCH 29.3 pg (27.0-33.0); MCHC 33.4 % (32.0-36.0); MCV 88 fL (80-95); MPV 9.4 fL (8.0-11.0); Monocytes % 8.1; Neutrophils % 67.1; Platelet Count 288 10^3/uL (130-400); RBC 5.01 10^6/uL (4.36-5.78); RDW 12.8 % (11.8-14.1); RDW-SD 41.4 fL; WBC 7.67 10^3/uL (4.4-10.8)
[2022-12-29 09:02] LABS: ALT 56 U/L (16-63); AST 23 U/L (15-37); Albumin 3.6 g/dL (3.4-5.0); Alkaline Phosphatase 75 U/L (46-116); Anion Gap 8.6 mmol/L (3-11); BUN 15 mg/dL (7-18); Bilirubin, Total 0.7 mg/dL (0.2-1.0); CO2 27.4 mmol/L (21.0-32.0); CREATININE 0.8 mg/dL (0.70-1.30); Calcium 9.1 mg/dL (8.5-10.1); Chloride 102 mmol/L (98-107); Estimated GFR 110.53 (mL/min/1.73m2); Glucose 142 mg/dL (74-106); Potassium 3.7 mmol/L (3.5-5.1); Sodium 138 mmol/L (136-145); Total Protein 6.7 g/dL (6.4-8.2)
[2022-12-30 09:23] LABS: IgA 131 mg/dL (85-499); IgG 491 mg/dL (610-1616); IgM 42 mg/dL (35-242)
[2022-12-31 16:18] LABS: CD19 <1 % (6-24); CD20 <1 % (6-24)
== END 2023-01-04 23:59 | disposition home or self-care (01) ==
LOC: INF 03:13
PROVIDERS: PCP Family Medicine; Visit Provider Psychiatry & Neurology Neurology
DX: G35 Multiple sclerosis (principal)
CPT/HCPCS: 36415; 80053; 82784; 88184; 88185; 96365; 96366; 96374; 85025; J1100; J1200; J2930; Q5119

== ENCOUNTER → 2023-02-17 01:21 | Outpatient (CLI) | payer MEDICAID, SELFPAY ==
--- NOTE | 2023-02-17 14:57 | DI.RAD_ITS ---
Exam(s) XR LUMBAR SPINE COMPLETE EXAM: XR LUMBAR SPINE COMPLETE CLINICAL HISTORY: burning low back pain on left, M54.9-dorsalgia. TECHNIQUE: 2D digital imaging was performed of the lumbar spine. Five images were obtained. AP, la teral, right oblique, left oblique and L5-S1 spot views were obtained. COMPARISON: No priors for comparison. FINDINGS: BONES: No fracture or destructive lesion. There are endplate osteophytes at multiple levels of the alia mbar spine. There are degenerative changes of the facets at L4-5 and L5-S1. DISKS: Intervertebral disc spaces are maintained. ALIGNMENT: Lumbar spinal alignment is within normal limits. No spondylolysis or spondylolisthesis. SOFT TISSUE: Normal. IMPRESSION: Degenerative changes seen in the lumbar spine. DATA REPOSITORY: RADIATION DOSE DELIVERED:
== END ==
PROVIDERS: PCP Family Medicine; Visit Provider Family Medicine
DX: M51.36 Other intervertebral disc degeneration, lumbar region (principal)
CPT/HCPCS: 72110

== ENCOUNTER 2023-03-11 21:08 | Outpatient (REF) | payer MEDICAID, SELFPAY | END 2023-03-11 21:09 | disposition home or self-care (01) | LOC: LBN 21:08 | PROVIDERS: PCP Family Medicine; Visit Provider Nurse Practitioner Family | DX: L03.115 Cellulitis of right lower limb (principal) | CPT/HCPCS: 87077; 87070; 87186; 87205 ==

== ENCOUNTER 2023-09-13 04:52 | Emergency (ER) | payer MEDICAID, SELFPAY ==
--- NOTE | 2023-09-13 04:55 | W.ED.GENAD ---
Discharge Plan Disposition Patient Disposition: Home Discharge Details Clinical Impression: Cellulitis of right elbow Primary Care Provider: Tai Lopez ED Provider: Kentrell Trujillo [place] Meds and New Rx's Prescriptions: New cephalexin 500 mg capsule 500 mg PO QID Qty: 40 0RF Continued tamsulosin 0.4 mg capsule 0.4 mg PO QHS Qty: 90 2RF dalfampridine 10 mg tablet extended release 12 hr 10 mg PO Q12H cholecalciferol (vitamin D3) 5,000 UNIT capsule 10,000 unit PO DAILY multivitamin [Daily Multiple] 1 EACH tablet 1 ea PO DAILY Rituxan 10 MG/1 ML concentrate 10 mg IV q 6 months Patient Comments: last dose December 2022 - takes once per year sildenafil [Viagra] 100 mg tablet 100 mg PO DAILY PRN (Reason: sexual activity) Qty: 10 12RF Rx Instructions: administer 30 minutes to 4 hours before activity acetaminophen [Acetaminophen Extra Strength] 500 MG tablet 1,000 mg PO Q8H PRN PRNQty: 60 0RF ibuprofen 600 MG tablet 600 mg PO Q8H PRN PRNQty: 30 1RF Discharge Instructions Instructions: Cellulitis (Skin Infection), Adult ED Additional Instructions: You were seen for right elbow cellulitis related to a prior wound after a fall. Continue to keep the area clean and dry. We have started you on cephalexin. Follow-up with primary care next week if not improving. Return to ED for increasing pain, redness, decreased mobility of the elbow, fever, other concerns. Referrals: Tai Lopez MD [Primary Care Provider] - [facility] General Mode of arrival: ambulatory. Date/Time Provider Initiated Documentation: 09/13/23 04:55. Limitations to Documentation: no limitations. Information obtained by: patient and RN notes reviewed. HPI Narrative: Patient presents to ED with complaint of right elbow infection. Patient has history of recurrent cellulitis mostly involving his lower extremity. Patient fell landed on his elbow and scraped it up. He has been trying to manage it at home with topical medication. Has developed increased redness and drainage. Otherwise feels well but because of his propensity to skin infection/cellulitis presents to ED for evaluation. He has normal range of motion at the elbow. He has no fever or chills. He has no systemic symptoms. Related Data Home Medications Medication Instructions Recorded Confirmed cholecalciferol (vitamin D3) 125 10,000 unit PO DAILY 05/25/16 09/13/23 mcg (5,000 unit) capsule multivitamin (Daily Multiple 1 ea PO DAILY 05/11/17 09/13/23 tablet) acetaminophen 500 mg tablet 1,000 mg (2 x 500 mg) PO Q8H PRN 06/23/17 09/13/23 (Acetaminophen Extra Strength) PRN #60 tabs ibuprofen 600 mg tablet 600 mg PO Q8H PRN PRN #30 tabs 06/23/17 09/13/23 rituximab 10 mg/mL 10 mg IV q 6 months 08/15/17 09/13/23 concentrate,intravenous (Rituxan) dalfampridine 10 mg 10 mg PO Q12H 04/07/20 09/13/23 tablet,extended release,12 hr sildenafil 100 mg tablet (Viagra) 100 mg PO DAILY PRN sexual 11/09/22 09/13/23 activity #10 tabs tamsulosin 0.4 mg capsule 0.4 mg PO QHS #90 caps 12/02/22 09/13/23 cephalexin 500 mg capsule 500 mg PO QID #40 caps 09/13/23 Previous Rx's Medication Instructions Recorded acetaminophen 500 mg tablet 1,000 mg (2 x 500 mg) PO Q8H PRN 06/23/17 (Acetaminophen Extra Strength) PRN #60 tabs ibuprofen 600 mg tablet 600 mg PO Q8H PRN PRN #30 tabs 06/23/17 sildenafil 100 mg tablet (Viagra) 100 mg PO DAILY PRN sexual 11/09/22 activity #10 tabs tamsulosin 0.4 mg capsule 0.4 mg PO QHS #90 caps 12/02/22 cephalexin 500 mg capsule 500 mg PO QID #40 caps 09/13/23 Allergies Allergy/AdvReac Type Severity Reaction Status Date / Time shrimp Allergy hands swell Verified 09/13/23 05:02 General ZAK: 4 Review of Systems Narrative: Per HPI Exam Narrative Exam Narrative: Const: WDWN male in NAD. VS per triage. HEENT: NC/AT. Normal facial exam. Neck: Supple. Trachea midline. Lungs: Normal respiratory effort. Neuro: A+O x 3. Normal speech, mentation. Ext: Normal range of motion of the right elbow. No evidence of deformity or bony tenderness. Skin: Right olecranon abrasion with surrounding erythema, clear to mildly purulent discharge. Medical Decision Making Patient presenting to ED with evidence of early cellulitis related to previous abrasions after a fall. Has history of wound infections and cellulitis. Has no prior history of MRSA. Has been managed with cephalexin in the past. Will start him on 500 mg every 6 hours for 10 days. Follow-up with primary care next week if not improving. Return precautions provided. PFSH All Active Problems Cellulitis of right elbow (Acute) Low back pain (Acute) Rash (Acute) Obesity (Chronic) Hyperglycemia (Acute) Spastic monoplegia of lower extremity (Acute) Family history of prostate cancer (Acute) Traumatic tear of right rotator cuff (Acute ~02/2022) Lower urinary tract symptoms (LUTS) (Acute) Erectile dysfunction (Chronic) secondary to MS Right optic neuritis (Acute 05/25/16) Medical History Multiple sclerosis, relapsing-remitting (05/25/16) Neurogenic bladder secondary to MS Surgical History S/P carpal tunnel release Right endoscopic 06/2017; Left 07/2020 H/O total cystectomy lower buttocks S/P vasectomy x2 Family History Paternal Grandfather Stroke Paternal Cousin Multiple sclerosis Social History Smoking/Tobacco Use Status: Former Tobacco Use Quit Date: 03/07/13 Smoking risk assessment performed?: Yes Alcohol Intake: current Alcohol Intake frequency: holidays/special occasions only Alcohol type: beer Drug use: Never Substance use type: does not use Household members: spouse and children Housing: house Number of Children: 5 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
[2023-09-13 04:56] VITALS: BP 136/74; PULSE 71; RESP 16; TEMP 36.6; O2SAT 96
[2023-09-13] MEDS: Cephalexin 500 MG CAP PO (05:12)
== END 2023-09-13 05:23 | disposition home or self-care (01) ==
LOC: ER 05:25
PROVIDERS: Emergency Provider Emergency Medicine; PCP Family Medicine
DX: S50.311A Abrasion of right elbow, initial encounter (principal); L03.113 Cellulitis of right upper limb; G35 Multiple sclerosis; W18.39XA Other fall on same level, initial encounter; Y93.89 Activity, other specified; Z87.891 Personal history of nicotine dependence
CPT/HCPCS: 99283

== ENCOUNTER 2023-12-27 01:57 | Outpatient (CLI) | payer MEDICAID, SELFPAY ==
[2023-12-28 09:37] LABS: IgA 129 mg/dL (85-499); IgG 583 mg/dL (610-1616); IgM 40 mg/dL (35-242)
[2023-12-28 12:22] LABS: CD19 <1 % (6-24); CD20 <1 % (6-24)
== END 2023-12-27 01:58 ==
LOC: LBO 01:58
PROVIDERS: Psychiatry & Neurology Neurology; PCP Family Medicine; Visit Provider Urology
DX: R39.9 Unspecified symptoms and signs involving the genitourinary system (principal); G35 Multiple sclerosis
CPT/HCPCS: 36415; 82784; 88184; 88185; 84153

== ENCOUNTER 2024-02-13 02:51 | Outpatient (CLI) | payer MEDICAID, SELFPAY ==
[2024-02-14 14:22] LABS: CD19 <1 % (6-24); CD20 <1 % (6-24)
== END 2024-02-13 02:52 | disposition home or self-care (01) ==
LOC: LOS 02:51
PROVIDERS: PCP Family Medicine; Visit Provider Psychiatry & Neurology Neurology
DX: G35 Multiple sclerosis (principal)
CPT/HCPCS: 36415; 88184; 88185

== ENCOUNTER 2024-03-26 03:16 | Outpatient (CLI) | payer MEDICAID, SELFPAY ==
[2024-03-27 14:50] LABS: CD19 <1 % (6-24); CD20 <1 % (6-24)
== END 2024-03-26 03:17 | disposition home or self-care (01) ==
LOC: LOS 03:16
PROVIDERS: PCP Family Medicine; Visit Provider Psychiatry & Neurology Neurology
DX: G35 Multiple sclerosis (principal)
CPT/HCPCS: 36415; 88184; 88185

== ENCOUNTER 2024-04-09 16:27 | Emergency (ER) | payer MEDICAID, SELFPAY ==
[2024-04-09 16:38] VITALS: BP 140/65; PULSE 80; RESP 14; TEMP 37.2; O2SAT 93
--- NOTE | 2024-04-09 16:40 | ED.GENADUL_ITS ---
Discharge Plan Disposition Patient Disposition: Home Discharge Details Clinical Impression: Laceration of left little finger, Immunization, tetanus-diphtheria Primary Care Provider: Tai Lopez ED Provider: Harrison Dennis [place] Meds and New Rx's Prescriptions: Continued sildenafil [Viagra] 100 mg tablet 100 mg PO DAILY PRN (Reason: sexual activity) Qty: 10 12RF Rx Instructions: administer 30 minutes to 4 hours before activity dalfampridine 10 mg tablet extended release 12 hr 10 mg PO Q12H cholecalciferol (vitamin D3) 5,000 UNIT capsule 10,000 unit PO DAILY multivitamin [Daily Multiple] 1 EACH tablet 1 ea PO DAILY Rituxan 10 MG/1 ML concentrate 10 mg IV q 6 months Patient Comments: last dose December 2022 - takes once per year tamsulosin 0.4 mg capsule 0.4 mg PO QHS Qty: 90 2RF acetaminophen [Acetaminophen Extra Strength] 500 MG tablet 1,000 mg PO Q8H PRN PRNQty: 60 0RF ibuprofen 600 MG tablet 600 mg PO Q8H PRN PRNQty: 30 1RF Discharge Instructions Additional Instructions: You are seen in the emergency department for your laceration which was closed with glue. Your tetanus was updated. As we discussed if you develop streaking signs of infection fevers or any foul-smelling drainage please return to the emergency department. For your pain please take medications as follows: 1. Take acetaminophen (Tylenol), 1,000 mg (two 500 mg tabs) every 6 hours [2. Take ibuprofen (Advil), 400 mg every 6 hours.] HPI General Date/Time Provider Initiated Documentation: 04/09/24 16:40 . HPI Narrative: MDM This is an overall very well-appearing normothermic and not tachycardic[ ] 48-year-old tbiee-wmek-tpeccskg male left middle finger superficial laceration which was closed with cyanoacrylate glue. No pain on proportion to suggest necrotizing soft tissue infection. Patient superficial nature of patient's laceration and intact range of motion left little finger as not suspicious for any ligamentous injury. No significant trauma to finger to suggest increased risk for osseous abnormalities will defer x-ray. No erythema to suggest cellulitis. Patient and I discussed that he should return to the ED for streaking signs of infection or any fevers. His tetanus was updated in the emergency department and he was discharged with empiric trial of expectant outpatient management. He received acetaminophen for analgesia. HPI This is a berld-yerr-jcgosjcz 48-year-old male arrived to the emergency department via private vehicle in setting of left little finger laceration. 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 He was reportedly using a knife and he cut his left pinky finger. He was able to irrigate his wound extensively. He is not sure when his last tetanus was updated. He has had no difficulty moving his left little finger. Exam General: Well-appearing in no acute distress speaking in complete sentences. Head: Normocephalic, atraumatic. Eye: Extraocular eye movements intact. No conjunctival injection. No scleral icterus. Ear, nose, mouth, throat: Grossly normal inspection. Normal voice, handling secretions normally. Neck: Trachea midline. Cardiovascular: Well-perfused distal extremities. Respiratory: Nonlabored respiration. Gastrointestinal: Nondistended abdomen. Musculoskeletal: On the palmar surface of the left little finger there is a curvilinear approximately 1.5 cm superficial hemostatic laceration that does not violate the subcutaneous tissue. Full range of motion in left little finger. Left hand warm well-perfused 2+ left radial pulse. Flexion and extension mechanisms intact left little finger across the MCP, PIP, and DIP joints. 2+ left Radial pulse. Cap refill less than 2 seconds left fingertips. Skin: Normal for age and race, grossly normal temperature and turgor. No acute rash. Neurologic: Alert and appropriate, no apparent acute deficits. Psychiatric: Mood and manner are appropriate. Grooming and personal hygiene are appropriate. Related Data Home Medications ?Medication ?Instructions ?Recorded ?Confirmed cholecalciferol (vitamin D3) 125 10,000 unit PO DAILY 05/25/16 04/09/24 mcg (5,000 unit) capsule multivitamin (Daily Multiple 1 ea PO DAILY 05/11/17 04/09/24 tablet) acetaminophen 500 mg tablet 1,000 mg (2 x 500 mg) PO Q8H PRN 06/23/17 04/09/24 (Acetaminophen Extra Strength) PRN #60 tabs ibuprofen 600 mg tablet 600 mg PO Q8H PRN PRN #30 tabs 06/23/17 04/09/24 rituximab 10 mg/mL 10 mg IV q 6 months 08/15/17 04/09/24 concentrate,intravenous (Rituxan) dalfampridine 10 mg 10 mg PO Q12H 04/07/20 04/09/24 tablet,extended release,12 hr tamsulosin 0.4 mg capsule 0.4 mg PO QHS #90 caps 09/19/23 04/09/24 sildenafil 100 mg tablet (Viagra) 100 mg PO DAILY PRN sexual 10/11/23 04/09/24 activity #10 tabs Previous Rx's ?Medication ?Instructions ?Recorded acetaminophen 500 mg tablet 1,000 mg (2 x 500 mg) PO Q8H PRN 06/23/17 (Acetaminophen Extra Strength) PRN #60 tabs ibuprofen 600 mg tablet 600 mg PO Q8H PRN PRN #30 tabs 06/23/17 tamsulosin 0.4 mg capsule 0.4 mg PO QHS #90 caps 09/19/23 sildenafil 100 mg tablet (Viagra) 100 mg PO DAILY PRN sexual 10/11/23 activity #10 tabs Allergies Allergy/AdvReac Type Severity Reaction Status Date / Time shrimp Allergy hands swell Verified 04/09/24 16:43 General ZAK: 4 Procedure Laceration Laceration 1: Date of Procedure: 04/09/24 Time of procedure: 16:57 Provider that performed the procedure: Harrison Dennis Patient Consented: Verbally Site: upper extremity Side (If applicable): left Description: linear Depth: simple, single layer Skin layer closed with: other (Cyanoacrylate glue) Medical Decision Making Quality:SDOH Health Related Social Needs: No Data to Display PFSH All Active Problems (Updated 04/09/24 @ 16:41 by Harrison Dennis MD) Immunization, tetanus-diphtheria (Acute) Laceration of left little finger (Acute) Multiple sclerosis, relapsing-remitting (Acute 05/25/16) Low back pain (Acute) Rash (Acute) Obesity (Chronic) Hyperglycemia (Acute) Spastic monoplegia of lower extremity (Acute) Family history of prostate cancer (Acute) Traumatic tear of right rotator cuff (Acute ~02/2022) Lower urinary tract symptoms (LUTS) (Acute) Erectile dysfunction (Chronic) secondary to MS Right optic neuritis (Acute 05/25/16) Medical History Neurogenic bladder secondary to MS Surgical History S/P carpal tunnel release Right endoscopic 06/2017; Left 07/2020 H/O total cystectomy lower buttocks S/P vasectomy x2 Family History Paternal Grandfather Stroke Paternal Cousin Multiple sclerosis Social History Smoking/Tobacco Use Status: Former Tobacco Use Quit Date: 03/07/13 Tobacco: How many years used: 20 Smokeless tobacco user: chewing tobacco and snuff Quit status: has quit before Smoking risk assessment performed?: Yes Alcohol Intake: current Alcohol Intake frequency: holidays/special occasions only Alcohol type: beer Drug use: Never Substance use type: does not use Counseling given: No Household members: spouse and children Housing: house Number of Children: 5 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
[2024-04-09] MEDS: Acetaminophen 500 MG TAB 1000 MG PO (16:53)
[2024-04-09] MEDS: Diph,Pertuss(Acell),Tet Vac/Pf 0.5 ML SYR IM (16:54)
== END 2024-04-09 17:00 | disposition home or self-care (01) ==
PROVIDERS: Emergency Provider Emergency Medicine; PCP Family Medicine
DX: S61.217A Laceration without foreign body of left little finger without damage to nail, initial encounter (principal); Z23 Encounter for immunization; W26.0XXA Contact with knife, initial encounter; Y93.89 Activity, other specified; Y92.018 Other place in single-family (private) house as the place of occurrence of the external cause; Y99.0 Civilian activity done for income or pay
CPT/HCPCS: 12001; 90471; 90715; 99283

== ENCOUNTER 2024-06-18 03:15 | Outpatient (CLI) | payer MEDICAID, SELFPAY ==
[2024-06-19 14:37] LABS: CD19 <1 % (6-24); CD20 <1 % (6-24)
== END 2024-06-18 03:16 | disposition home or self-care (01) ==
LOC: LOS 03:15
PROVIDERS: Psychiatry & Neurology Neurology; PCP Family Medicine; Visit Provider Family Medicine
DX: G35 Multiple sclerosis (principal)
CPT/HCPCS: 36415; 88184; 88185

== ENCOUNTER 2024-09-17 03:02 | Outpatient (CLI) | payer MEDICAID, SELFPAY ==
[2024-09-18 14:12] LABS: CD19 <1 % (6-24); CD20 <1 % (6-24)
== END 2024-09-17 03:03 | disposition home or self-care (01) ==
LOC: LOS 03:02
PROVIDERS: PCP Family Medicine; Visit Provider Psychiatry & Neurology Neurology
DX: G35 Multiple sclerosis (principal)
CPT/HCPCS: 36415; 88184; 88185

== ENCOUNTER 2024-09-25 08:56 | Outpatient (CLI) | payer MEDICAID, SELFPAY ==
--- NOTE | 2024-09-25 08:15 | DI.RAD_ITS ---
Exam(s) XR KNEE LT 4V AP,LAT,CHARLINE,PAT EXAM: XR KNEE LT 4V AP,LAT,CHARLINE,PAT CLINICAL HISTORY: L knee pain. TECHNIQUE: 2D digital imaging was performed. Three views. COMPARISON: CR,XR XR KNEE LT 4V AP,LAT,CHARLINE,PAT from 06/22/2022 FINDINGS: BONES: No acute fracture is present. No bony destructive lesion is seen. JOINTS: Mild narrowing of the lateral femoral tibial joint space and mild periarticular spurring. No joint effusion is seen. SOFT TISSUE: Normal anterior soft tissue swelling. IMPRESSION: Mild degenerative changes. Mild anterior soft tissue swelling. DATA REPOSITORY: RADIATION DOSE DELIVERED:
== END 2024-09-25 08:57 | disposition home or self-care (01) ==
LOC: DIORS 08:56
PROVIDERS: PCP Family Medicine; Visit Provider Physician Assistant
DX: M25.562 Pain in left knee (principal); M17.12 Unilateral primary osteoarthritis, left knee
CPT/HCPCS: 73564

== ENCOUNTER 2024-10-08 17:32 | Emergency (ER) | payer MEDICAID, SELFPAY ==
[2024-10-08 17:45] VITALS: BP 144/78; PULSE 72; RESP 16; TEMP 36.6; O2SAT 95
--- NOTE | 2024-10-08 17:45 | RT.EKG_ITS ---
APPROVED REPORT Exam: Resting ECG Reason for Exam: RT sided CP/RT shoulder pain Patient Location: E HR:65 bpm ECG Measurements Heart Rate 65 AXIS AZ 151 P 62 QRSd 85 QRS 13 QT 373 T 7 QTc 390 Conclusion Sinus rhythm at a rate of 65 without acute ischemic change with normal intervals
[2024-10-08] MEDS: Lidocaine 5% Patch 1 PATCH TP (19:34)
--- NOTE | 2024-10-08 20:15 | DI.RAD_ITS ---
Exam(s) XR SHOULDER RT COMPLETE 2+V EXAM: XR SHOULDER RT COMPLETE 2+V CLINICAL HISTORY: R shoulder pain with forward extension. TECHNIQUE: 2D digital imaging was performed of the right shoulder. Five images were obtained. AP, Grashey, Y-view and axillary views were obtained. COMPARISON: CR XR SHOULDER RT COMPLETE 2+V from 02/08/2022 FINDINGS: BONES: No acute fracture is present. No bony destructive lesion is seen. JOINTS: No dislocation present. There are degenerative changes seen at the acromioclavicular joint. The glenohumeral joint appears well maintained. SOFT TISSUE: Normal. IMPRESSION: 1. No acute fracture or dislocation is present. 2. The preliminary [facility] report was reviewed. DATA REPOSITORY: RADIATION DOSE DELIVERED:
--- NOTE | 2024-10-08 20:15 | W.ED.GENAD ---
Discharge Plan Disposition Patient Disposition: Home Discharge Details Clinical Impression: Pain in right shoulder Primary Care Provider: Tai Lopez ED Provider: Maura Ruiz Home Meds and New Rx's Prescriptions: No Action sildenafil [Viagra] 100 mg tablet 100 mg PO DAILY PRN (Reason: sexual activity) Qty: 10 12RF Rx Instructions: administer 30 minutes to 4 hours before activity dalfampridine 10 mg tablet extended release 12 hr 10 mg PO Q12H cholecalciferol (vitamin D3) 5,000 UNIT capsule 10,000 unit PO DAILY multivitamin [Daily Multiple] 1 EACH tablet 1 ea PO DAILY Rituxan 10 MG/1 ML concentrate 10 mg IV q 6 months Patient Comments: last dose December 2022 - takes once per year tamsulosin 0.4 mg capsule 0.4 mg PO QHS Qty: 90 2RF acetaminophen [Acetaminophen Extra Strength] 500 MG tablet 1,000 mg PO Q8H PRN PRNQty: 60 0RF ibuprofen 600 MG tablet 600 mg PO Q8H PRN PRNQty: 30 1RF Discharge Instructions Additional Instructions: Please call your primary care provider to schedule a follow-up appointment within the next week or 2. A referral to physical therapy may be indicated. There is no sign of acute abnormality on x-ray. I recommend that you rest, use lidocaine patches (IcyHot and Salonpas make good options), muscle rubs, heat/ice as needed (do not apply over lidocaine patches), Voltaren gel, and Tylenol/ibuprofen as needed. Return to emergency care if you develop new numbness/tingling in your arm, extremity weakness, swelling or color change of the arm, chest pain, difficulty breathing, or if you are very worried you need to be rechecked again immediately Referrals: Tai Lopez MD [Primary Care Provider, Medicine] HPI General Date/Time Provider Initiated Documentation: 10/08/24 17:56. HPI Narrative: Wilmer is a 49-year-old male who presents to the emergency department today for evaluation of right shoulder pain. He reports that [place] using a stroller for support instead of using his usual cane in his left hand, thinks he may have exerted too much pressure on his right arm. He is reporting intermittent anterior shoulder pain, especially with lifting his arm up straight ahead in him or lifting his arm to put on a shirt. Pain is intermittent, triggered with movement, radiates from right pectoral muscle to his fingertips. Denies associated chest pain, dizziness, fever/chills, joint swelling/redness, distal numbness/tingling. 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 He applied ice, took Motrin, used heat, and rested, but pain has persisted. No previous injury to the shoulder. Past medical history significant for multiple sclerosis. Related Data Home Medications ?Medication ?Instructions ?Recorded ?Confirmed cholecalciferol (vitamin D3) 125 10,000 unit PO DAILY 05/25/16 10/08/24 mcg (5,000 unit) capsule multivitamin (Daily Multiple 1 ea PO DAILY 05/11/17 10/08/24 tablet) acetaminophen 500 mg tablet 1,000 mg (2 x 500 mg) PO Q8H PRN 06/23/17 10/08/24 (Acetaminophen Extra Strength) PRN #60 tabs ibuprofen 600 mg tablet 600 mg PO Q8H PRN PRN #30 tabs 06/23/17 10/08/24 rituximab 10 mg/mL 10 mg IV q 6 months 08/15/17 10/08/24 concentrate,intravenous (Rituxan) dalfampridine 10 mg 10 mg PO Q12H 04/07/20 10/08/24 tablet,extended release,12 hr sildenafil 100 mg tablet (Viagra) 100 mg PO DAILY PRN sexual 10/11/23 10/08/24 activity #10 tabs tamsulosin 0.4 mg capsule 0.4 mg PO QHS #90 caps 06/14/24 10/08/24 Previous Rx's ?Medication ?Instructions ?Recorded acetaminophen 500 mg tablet 1,000 mg (2 x 500 mg) PO Q8H PRN 06/23/17 (Acetaminophen Extra Strength) PRN #60 tabs ibuprofen 600 mg tablet 600 mg PO Q8H PRN PRN #30 tabs 06/23/17 sildenafil 100 mg tablet (Viagra) 100 mg PO DAILY PRN sexual 10/11/23 activity #10 tabs tamsulosin 0.4 mg capsule 0.4 mg PO QHS #90 caps 06/14/24 Allergies Allergy/AdvReac Type Severity Reaction Status Date / Time shrimp Allergy hands swell Verified 10/08/24 17:53 General Stated Complaint: Orthopedic ZAK: 4 Exam Narrative Exam Narrative: General Appearance: Normal. Patient is alert and oriented, no acute distress Vital signs: Within normal limits. Back, Musculoskeletal: Right shoulder shows no tenderness to palpation; no erythema, warmth, swelling. ROM intact with discomfort on forward motion and lifting. No pain with abduction, rotation, or Apley scratch test. Mild discomfort with resisted forward flexion. No deformities. Negative Spurling test Extremities: No numbness or sensory deficits in right arm. 5/5 muscle strength to upper extremities. Skin: Warm and dry, no rash. Psychiatric: Normal. Course Vital Signs Vital signs: Vital Signs Temperature 36.6 C 10/08/24 17:45 Pulse 72 10/08/24 17:45 Respiratory Rate 16 10/08/24 17:45 Blood Pressure 144/78 H 10/08/24 17:45 Pulse Oximetry 95 10/08/24 17:45 Temperature 36.6 C 10/08/24 17:45 Temperature Source Oral 10/08/24 17:45 Pulse 72 10/08/24 17:45 Respiratory Rate 16 10/08/24 17:45 Blood Pressure 144/78 H 10/08/24 17:45 Blood Pressure Position Sitting 10/08/24 17:45 Pulse Oximetry 95 10/08/24 17:45 Oxygen Delivery Method Room Air 10/08/24 17:45 Oxygen Flow Rate 0 10/08/24 17:45 Pain Level 3 10/08/24 17:45 Medical Decision Making Initial Assessment: 49-year-old male with right shoulder pain, likely muscular tear or tendinitis. Differential Diagnosis includes but is not limited to: Muscular injury, tendinitis, meniscal tear, osteoarthritis, bony abnormality, other soft tissue injury ED Course: - Lidocaine patch applied; patient reports that his shoulder is feeling a bit better and he is able to increase his range of motion - Physical examination performed. - X-ray ordered to check for bony changes. No acute findings noted on x-ray by radiologist. Final Assessment: Patient's right shoulder pain is likely due to a muscular tear or tendinitis/overuse injury. Treatment includes lidocaine patches, heat, ice, Tylenol, ibuprofen, and topical treatments. Disposition: Reviewed discharge instruction with patient, including symptomatic management and red flags indicating need for return to emergency care. - Discharge: Home - Follow-Up: Follow up with PCP Dr. Lopez, recommend referral to physical therapy. Patient Education: Continue lidocaine patches, heat, ice, Tylenol, ibuprofen, topical treatments (Voltaren gel, Aspercreme, Salonpas, IcyHot). MDM Components Evaluation: - Number of Differential Diagnoses or Management Options: Muscular tear, tendinitis, arthritis. - Amount and Complexity of Data Reviewed: Physical examination, X-ray ordered. - Risk of Complication and Morbidity or Mortality: Low risk based on current assessment and treatment plan. Patient consented to the use of [facility] Imaging Data Radiologic Study: Radiologist's impression: PROCEDURE INFORMATION: Exam: XR Right Shoulder Exam date and time: 10/08/2024 8:37 PM Age: 49 years old Clinical indication: Pain; Shoulder; Right; Additional info: R shoulder pain with forward extension TECHNIQUE: Imaging protocol: Radiologic exam of the right shoulder. Views: 2 or more views. COMPARISON: CR XR SHOULDER RT COMPLETE 2+V 02/08/2022 11:41 AM FINDINGS: Bones/joints: A probable healed fracture deformity is present within the proximal humeral diaphysis. No acute fracture or dislocation. Mild degenerative changes are present at the acromioclavicular and glenohumeral joints. No displaced rib fractures. Lungs: Visualized right lung is clear. Soft tissues: Normal. IMPRESSION: Degenerative change. No acute radiographic findings PFSH All Active Problems (Updated 10/08/24 @ 22:06 by Maura Loyd) Pain in right shoulder (Acute) Internal derangement of left knee (Acute) Multiple sclerosis, relapsing-remitting (Acute 05/25/16) Low back pain (Acute) Rash (Acute) Obesity (Chronic) Hyperglycemia (Acute) Spastic monoplegia of lower extremity (Acute) Family history of prostate cancer (Acute) Traumatic tear of right rotator cuff (Acute ~02/2022) Lower urinary tract symptoms (LUTS) (Acute) Erectile dysfunction (Chronic) secondary to MS Right optic neuritis (Acute 05/25/16) Medical History Neurogenic bladder secondary to MS Surgical History S/P carpal tunnel release Right endoscopic 06/2017; Left 07/2020 H/O total cystectomy lower buttocks S/P vasectomy x2 Family History Paternal Grandfather Stroke Paternal Cousin Multiple sclerosis Social History Smoking/Tobacco Use Status: Former Tobacco Use Quit Date: 03/07/13 Tobacco: How many years used: 20 Smokeless tobacco user: chewing tobacco and snuff Quit status: has quit before Smoking risk assessment performed?: Yes Alcohol Intake: current Alcohol Intake frequency: holidays/special occasions only Alcohol type: beer Drug use: Never Substance use type: does not use Counseling given: No Household members: spouse and children Housing: house Number of Children: 5 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
--- NOTE | 2024-10-08 21:46 | DI.[facility]_ITS ---
PROCEDURE INFORMATION: Exam: XR Right Shoulder Exam date and time: 10/08/2024 8:37 PM Age: 49 years old Clinical indication: Pain; Shoulder; Right; Additional info: R shoulder pain with forward extension TECHNIQUE: Imaging protocol: Radiologic exam of the right shoulder. Views: 2 or more views. COMPARISON: CR XR SHOULDER RT COMPLETE 2+V 02/08/2022 11:41 AM FINDINGS: Bones/joints: A probable healed fracture deformity is present within the proximal humeral diaphysis. No acute fracture or dislocation. Mild degenerative changes are present at the acromioclavicular and glenohumeral joints. No displaced rib fractures. Lungs: Visualized right lung is clear. Soft tissues: Normal. IMPRESSION: Degenerative change. No acute radiographic findings. Dictated and Authenticated by: Sarah Harper MD. Orderin Rojelio Lorenzo MD
[2024-10-08 22:16] VITALS: BP 116/66; PULSE 73; RESP 18; O2SAT 96
== END 2024-10-08 22:17 | disposition home or self-care (01) ==
PROVIDERS: Emergency Provider Nurse Practitioner Family; PCP Family Medicine
DX: M25.511 Pain in right shoulder (principal)
CPT/HCPCS: 99283 ×2; 93005; 73030; 93010

== ENCOUNTER 2024-12-17 03:39 | Outpatient (CLI) | payer MEDICAID, SELFPAY ==
[2024-12-17 14:24] LABS: Hemoglobin A1C 5.1 % (<5.7)
[2024-12-17 22:55] LABS: PSA, Diagnostic 1.2 ng/mL (<=2.5)
[2024-12-18 14:14] LABS: CD19 <1 % (6-24); CD20 <1 % (6-24)
== END 2024-12-17 03:40 | disposition home or self-care (01) ==
LOC: LOS 03:39
PROVIDERS: Urology; PCP Family Medicine; Visit Provider Psychiatry & Neurology Neurology
DX: R73.9 Hyperglycemia, unspecified (principal); R39.9 Unspecified symptoms and signs involving the genitourinary system; Z80.42 Family history of malignant neoplasm of prostate
CPT/HCPCS: 36415; 88184; 88185; 83036; 84153